=== PATIENT | female | born 1950 | race American Indian/Alaskan Native ===

== ENCOUNTER 2017-05-26 17:15 | Emergency (ER) | payer MEDICARE ==
--- NOTE | 2017-05-26 18:12 | Emergency Department Report ---
ED Medical Clearance HPI - General Chief complaint: Medical Clearance Stated complaint: CHOKING Time Seen by Provider: 05/26/17 18:04 Source: patient, family, EMS, RN notes reviewed Mode of arrival: Stretcher Limitations: Physical Limitation - History of Present Illness Initial comments: This is a 67-year-old female, who is previously unknown to me, she reports a past medical history of chronic debility, wheelchair-bound, fibromyalgia, presents to the ER after choking episode. She reports that she was eating chicken without bones. Choking episode has resolved. Patient indicates chronic weakness, which is not a new, worsening or different. The patient denies headache, neck pain, chest pain, abdominal pain, shortness of breath, hemoptysis and fever. She reports that she is able to tolerate liquid feeds, and wants to go home now. MD Complaint: other Reason for Medical Clearance: other Alledged Intoxication: No Compliant with Home Medications: Yes Traumatic Symptoms: denies traumatic injury Associated Symptoms: other (as per hpi) Home medications: Home Medications Medication Instructions Recorded Confirmed Last Taken Baclofen [Lioresal] 10 mg PO BID PRN 03/25/15 07/16/16 03/25/15 Ibuprofen [Motrin 800 MG tab] 800 mg PO Q12H PRN 03/25/15 07/16/16 03/25/15 LORazepam [Ativan] 1 tab PO PRN PRN 03/25/15 07/16/16 Unknown Solifenacin Succinate [Vesicare] 10 mg PO QDAY 03/25/15 07/16/16 03/25/15 traMADol [Ultram 50 MG tab] 50 mg PO Q12H PRN 03/25/15 07/16/16 03/25/15 Gabapentin [Neurontin] 300 mg PO Q8HR 07/16/16 07/16/16 Unknown Previous Rx's Medication Instructions Recorded Last Taken Type HYDROcodone/APAP 5-325 [Jackson 1 - 2 each PO Q6HR PRN #30 tablet 03/26/15 Unknown Rx 5-325 mg TAB] Allergies/Adverse reactions: Allergies Allergy/AdvReac Type Severity Reaction Status Date / Time penicillin Allergy Anaphylaxis Verified 05/26/17 17:25 sulfamethoxazole Allergy Anaphylaxis Verified 05/26/17 17:25 [From Bactrim] trimethoprim [From Bactrim] Allergy Anaphylaxis Verified 05/26/17 17:25 ED Review of Systems ROS: Stated complaint: CHOKING Other details as noted in HPI Comment: as per hpi Constitutional: weakness (chronic weakness). denies: fever Eyes: denies: eye discharge ENT: denies: epistaxis Respiratory: denies: cough Cardiovascular: denies: chest pain Gastrointestinal: denies: abdominal pain Genitourinary: as per HPI Musculoskeletal: as per HPI Skin: as per HPI Neurological: as per HPI Psychiatric: as per HPI ED Past Medical Hx - Past Medical History Additional medical history: polymyositis, fibromyalgia, and cervical spinal stenosis - Surgical History Additional Surgical History: Hip surgery Hysterectomy. Colon Polyps - Social History Smoking Status: Never Smoker Substance Use Type: None - Medications Home Medications: Home Medications Medication Instructions Recorded Confirmed Last Taken Type Baclofen [Lioresal] 10 mg PO BID PRN 03/25/15 07/16/16 03/25/15 History Ibuprofen [Motrin 800 MG tab] 800 mg PO Q12H PRN 03/25/15 07/16/16 03/25/15 History LORazepam [Ativan] 1 tab PO PRN PRN 03/25/15 07/16/16 Unknown History Solifenacin Succinate [Vesicare] 10 mg PO QDAY 03/25/15 07/16/16 03/25/15 History traMADol [Ultram 50 MG tab] 50 mg PO Q12H PRN 03/25/15 07/16/16 03/25/15 History HYDROcodone/APAP 5-325 [Jackson 1 - 2 each PO Q6HR PRN #30 tablet 03/26/15 Unknown Rx 5-325 mg TAB] Gabapentin [Neurontin] 300 mg PO Q8HR 07/16/16 07/16/16 Unknown History ED Physical Exam - General Limitations: Physical Limitation General appearance: alert, in no apparent distress - Head Head exam: Present: atraumatic, normocephalic - Eye Eye exam: Present: normal appearance, EOMI. Absent: nystagmus - ENT ENT exam: Present: normal exam, normal orophraynx, mucous membranes moist, normal external ear exam, other (no foreign bodies noted in the oropharynx. There is no stridor or dysphonia. There is no elevation of the tongue.) - Neck Neck exam: Present: normal inspection. Absent: tenderness, meningismus - Respiratory Respiratory exam: Present: normal lung sounds bilaterally. Absent: respiratory distress, wheezes, rales, rhonchi, stridor, chest wall tenderness, accessory muscle use, decreased breath sounds, prolonged expiratory - Cardiovascular Cardiovascular Exam: Present: regular rate, normal rhythm, normal heart sounds. Absent: bradycardia, tachycardia, irregular rhythm, systolic murmur, diastolic murmur, rubs, gallop - GI/Abdominal GI/Abdominal exam: Present: soft, normal bowel sounds. Absent: distended, tenderness, guarding, rebound, rigid, pulsatile mass - Extremities Exam Extremities exam: Present: normal inspection - Back Exam Back exam: Present: normal inspection. Absent: tenderness - Neurological Exam Neurological exam: Present: alert, oriented X3, other (there is no facial droop. The tongue is midline. Extraocular movements are intact bilaterally. 5 out of 5 strength in the bilateral upper extremities.) - Psychiatric Psychiatric exam: Present: normal affect, normal mood - Skin Skin exam: Present: warm, dry, intact, normal color. Absent: rash ED Course Vital Signs 05/26/17 05/26/17 05/26/17 17:25 18:27 18:54 Temperature 97.9 F Pulse Rate 94 H 81 Respiratory 18 16 16 Rate Blood Pressure 124/80 Blood Pressure 109/60 [Right] O2 Sat by Pulse 96 98 Oximetry ED Medical Decision Making - Lab Data Vital Signs 05/26/17 05/26/17 17:25 18:27 Temperature 97.9 F Pulse Rate 94 H 81 Respiratory 18 16 Rate Blood Pressure 124/80 Blood Pressure 109/60 [Right] O2 Sat by Pulse 96 98 Oximetry - Medical Decision Making Differential diagnosis: Resolved choking episode Assessment and plan: 67-year-old female with resolved choking episode on a piece of boneless chicken. She is afebrile, with reassuring vital signs, and tolerating liquid feeds. She is saturating well, and has no pulmonary exam findings. I did recommend a chest x-ray to assess for possible retained foreign body/pneumonitis, however the patient and her family declined. They decline out of concern for radiation. The patient is able to tolerate liquid feeds. The risks of not performing the chest x-ray were discussed with the family and patient verbalized understanding. They understand the patient can come back any time if and when she changes her mind. ED Disposition Clinical Impression: Choking episode Disposition: DC-01 TO HOME OR SELFCARE Is pt being admited?: No Does the pt Need Aspirin: No Condition: Good Instructions: Foreign Body Ingestion (ED) Additional Instructions: Continue current outpatient medications. Follow up with her primary care doctor as scheduled. Return to the ER right away with fevers, chills, lethargy , irritability, projectile vomiting, chest pain, abdominal pain, confusion, inability to tolerate liquid feeds. Referrals: PRIMARY CARE, [Primary Care Provider] - 3-5 Days SANJAY HAAS MD [Staff Physician] - 3-5 Days
[2017-05-26 18:27] VITALS: BP 109/60
== END 2017-05-26 19:00 | disposition home or self-care (01) ==
LOC: ED 17:15
DX: R09.89 Other specified symptoms and signs involving the circulatory and respiratory systems (principal); Z88.0 Allergy status to penicillin; Z88.2 Allergy status to sulfonamides; Z88.8 Allergy status to other drugs, medicaments and biological substances
CPT/HCPCS: 99283

== ENCOUNTER 2018-04-06 12:26 | Inpatient (IN) | payer MEDICARE ==
--- NOTE | 2018-04-06 13:44 | Emergency Department Report ---
ED General Adult HPI - General Chief complaint: Wound/Laceration Stated complaint: BED SORE Time Seen by Provider: 04/06/18 13:06 Source: patient, EMS Mode of arrival: Stretcher Limitations: Physical Limitation - History of Present Illness Initial comments: 67-year-old chronically ill, bedbound patient due to general infirmity and weakness secondary to polymyositis, is brought in by daughter for complaint of progressive bedsores, although patient is under the care of another daughter and a grandson, but daughter who is present with patient and who has power of real estate associate attorney, reports that care has been inadequate, and she feels patient needs a higher level of care, likely long term placement. Reports the patient has not been eating or drinking well, and has been unable to get out of bed due to her chronic illness or to look after any of her activities of daily living. Patient is awake and alert, able to give fairly good history, but poor on timelines, denies acute symptomatology, no fever chills or diaphoresis, she is not having pain in any location, but also agrees that she is not eating or drinking well, and that she has very little appetite. Patient was hospitalized here from March 07 through March 13 of this year, one month ago, difficulty swallowing, was found to have esophageal stricture, tomlinson was dilated, and discharged to rehabilitation, and has been home for approximately 2 weeks. Grandson, age 21, is supposed to be turning patient, the daughter reports that it is not being done regularly, and patient estimated to be done every 4 hours. There has been no health nurse visitation. - Related Data Previous Rx's Medication Instructions Recorded Last Taken Type Baclofen [Lioresal] 10 mg PO BID PRN #60 tablet 03/13/18 Unknown Rx Gabapentin [Neurontin] 300 mg PO Q8HR #30 capsule 03/13/18 Unknown Rx HYDROcodone/APAP 5-325 [Dale 1 - 2 each PO Q6HR PRN #14 tablet 03/13/18 Unknown Rx 5-325 mg TAB] Clindamycin [Clindamycin CAP] 150 mg PO Q8HR #21 capsule 04/06/18 Unknown Rx Allergies Allergy/AdvReac Type Severity Reaction Status Date / Time penicillin Allergy Anaphylaxis Verified 05/26/17 17:25 sulfamethoxazole Allergy Anaphylaxis Verified 05/26/17 17:25 [From Bactrim] trimethoprim [From Bactrim] Allergy Anaphylaxis Verified 05/26/17 17:25 ED Review of Systems ROS: Stated complaint: BED SORE Other details as noted in HPI Comment: All other systems reviewed and negative Constitutional: weakness (chronic secondary to weakness from polymyositis). denies: chills, fever ENT: denies: ear pain, throat pain Respiratory: denies: cough, shortness of breath, wheezing Cardiovascular: denies: chest pain, palpitations Endocrine: no symptoms reported Gastrointestinal: constipation. denies: abdominal pain, nausea, vomiting Genitourinary: denies: urgency, dysuria, frequency Musculoskeletal: back pain (mild, from soreness in area of decubitus at sacrum) Skin: as per HPI, other (active decubitus at sacrum, healing decubitus right posterior hip) Neurological: weakness, other (bedridden secondary to general weakness) Psychiatric: denies: anxiety, depression Hematological/Lymphatic: denies: easy bleeding, easy bruising ED Past Medical Hx - Past Medical History Previous Medical History?: Yes Hx CVA: Yes Hx Arthritis: Yes Additional medical history: polymyositis, fibromyalgia, and cervical spinal stenosis - Surgical History Past Surgical History?: Yes Additional Surgical History: Hip surgery Hysterectomy. Colon Polyps - Social History Smoking Status: Unknown if ever smoked - Medications Home Medications: Home Medications Medication Instructions Recorded Confirmed Last Taken Type Baclofen [Lioresal] 10 mg PO BID PRN #60 tablet 03/13/18 Unknown Rx Gabapentin [Neurontin] 300 mg PO Q8HR #30 capsule 03/13/18 Unknown Rx HYDROcodone/APAP 5-325 [Dale 1 - 2 each PO Q6HR PRN #14 tablet 03/13/18 Unknown Rx 5-325 mg TAB] Clindamycin [Clindamycin CAP] 150 mg PO Q8HR #21 capsule 04/06/18 Unknown Rx ED Physical Exam - General Limitations: Physical Limitation General appearance: alert, in no apparent distress - Head Head exam: Present: atraumatic - Eye Eye exam: Present: PERRL - ENT ENT exam: Present: mucous membranes dry, other (edentulous) - Neck Neck exam: Present: normal inspection. Absent: tenderness, meningismus - Respiratory Respiratory exam: Present: normal lung sounds bilaterally. Absent: respiratory distress, wheezes, rales, rhonchi - Cardiovascular Cardiovascular Exam: Present: regular rate, normal rhythm - GI/Abdominal GI/Abdominal exam: Present: soft, normal bowel sounds. Absent: distended, tenderness, guarding, rebound - Rectal Rectal exam: Present: deferred - Extremities Exam Extremities exam: Present: other (family muscle, grossly weak generalized, generally unable lift lower extremities from stretcher) - Back Exam Back exam: Present: other (active 3-4 cm sacral decubitus, deep almost to bone level, no active bleeding, minimal drainage) - Neurological Exam Neurological exam: Present: alert, oriented X3, CN II-XII intact, other (gross weakness lower extremities, fair strength upper extremity, no focal weakness.) - Psychiatric Psychiatric exam: Present: normal affect, normal mood - Skin Skin exam: Present: warm, dry, other (sacral decubiti as noted on musculoskeletal examination, active at sacrum, healing right posterior hip) ED Course Vital Signs 04/06/18 12:42 Temperature 37.2 C Pulse Rate 106 H Respiratory 16 Rate Blood Pressure 126/72 O2 Sat by Pulse 96 Oximetry - Reevaluation(s) Reevaluation #1: 04/06/18 16:10 Patient has remained stable during course of observation and rehydration while waiting lab results, has no additional complaints. ED Medical Decision Making - Lab Data Result diagrams: 04/06/18 15:13 04/06/18 17:31 - Medical Decision Making This patient is chronically ill, bedridden due to generalized weakness from polymyositis, as well as decubiti, but is clinically stable, shows no signs of sepsis, is febrile, and has no acute metabolic abnormalities, and no signs of volume contraction as well. Although she is chronically ill, and could receive better bedside care, she has no illness that requires acute hospitalization, either for diagnostics or therapy. I had a long discussion with family about patient's care needs, likely need for home health visits, but discharged health visits and care plan are not clear from daughter who was in attendance, who has power of real estate associate attorney, but does not live with patient and is not aware of patient's discharge care plan, as patient was discharged to the care of another daughter. Patient's findings discussed with supervisor industrial arts education hospitalist, Dr. Tate, who feels patient is significantly malnourished and has encephalopathic signs and is likely to be unable to adequately be cared for at home, and he will admit patient for further care. - Differential Diagnosis cellulitis, dehydration, sepsis, metabolic abnormality Critical Care Time: No Critical care attestation.: If time is entered above; I have spent that time in minutes in the direct care of this critically ill patient, excluding procedure time. ED Disposition Clinical Impression: Sacral decubitus ulcer, stage III Decubitus ulcer of right hip Qualifiers: Pressure injury stage: unspecified pressure injury stage Qualified Code(s): L89.219 - Pressure ulcer of right hip, unspecified stage Disposition: OP ADMIT IP TO THIS HOSP Is pt being admited?: Yes Does the pt Need Aspirin: No Condition: Stable Instructions: How to Prevent Pressure Ulcers (ED), Pressure Ulcer (ED) Additional Instructions: Follow with your primary care doctor at the beginning of the week on Sunday, for urgent follow-up and to discuss arrangements for home health to visit patient and to assist with management of wound. Sure to turn frequently, and avoid pressure on the sacral decubitus in particular. Take clindamycin 3 times daily, antibiotic, to prevent infection of this decubitus. Continue wet to dry dressing changes as described in pressure ulcer care. Seizure encourage extra food and drink to maintain nutrition and to help assist with wound healing as well. Prescriptions: Clindamycin [Clindamycin CAP] 150 mg PO Q8HR #21 capsule Referrals: SANJAY HAAS MD [Primary Care Provider] - 3-5 Days Time of Disposition: 16:16
[2018-04-06] MEDS ORDERED: NACL 0.9% 1000 ML 1,000 ML IV ONE (13:56)
[2018-04-06] MEDS ORDERED: NACL 0.9% 500 ML 500 ML ONE (15:19)
[2018-04-06 15:45] LABS: Basophils % (Auto) 0.4 % (0.0-1.8); Eosinophils # (Auto) 0.1 K/mm3 (0.0-0.4); Eosinophils % (Auto) 0.9 % (0.0-4.3); Hematocrit 30.6 % (30.3-42.9); Hemoglobin 10.2 gm/dl (10.1-14.3); Lymphocytes # (Auto) 3.1 K/mm3 (1.2-5.4); Lymphocytes % (Auto) 35.4 % (13.4-35.0); Mean Corpuscular HGB Conc 33 % (30-34); Mean Corpuscular Hemoglobin 27 pg (28-32); Mean Corpuscular Volume 81 fl (79-97); Platelet Count 528 K/mm3 (140-440); Red Blood Count 3.78 M/mm3 (3.65-5.03); Red Cell Distribution Width 15.4 % (13.2-15.2)
[2018-04-06 15:47] LABS: BUN/Creatinine Ratio 30; Blood Urea Nitrogen 6 mg/dL (7-17); Calcium 8.4 mg/dL (8.4-10.2); Hemolysis Index 0; INR 0.94 (0.87-1.13)
[2018-04-06] MEDS ORDERED: CLEOCIN PO ONE (16:17)
[2018-04-06] MEDS ORDERED: ZOFRAN IV PRN (17:51)
[2018-04-06] MEDS ORDERED: SODIUM CHLORIDE FLUSH SYRINGE 10 ML IV PRN (17:51)
[2018-04-06] MEDS ORDERED: PROVENTIL IH PRN (17:51)
[2018-04-06 18:11] LABS: Alanine Aminotransferase 7 units/L (7-56); Albumin 2.5 g/dL (3.9-5); BUN/Creatinine Ratio 30; Blood Urea Nitrogen 6 mg/dL (7-17); Calcium 8.2 mg/dL (8.4-10.2); Hemolysis Index 0
--- NOTE | 2018-04-06 18:36 | Cat Scan Report ---
FINAL REPORT PROCEDURE: CT HEAD/BRAIN WO CON TECHNIQUE: Computerized tomography of the head was performed without contrast material. HISTORY: confusion COMPARISON: No prior studies are available for comparison. FINDINGS: There is no CT evidence of intracranial mass, hemorrhage, acute territorial infarction, or hydrocephalus. The intracranial arteries are symmetric in density. Calvarium is intact. Visualized paranasal sinuses and mastoids are aerated. IMPRESSION: No CT evidence of acute abnormality
[2018-04-06] MEDS ORDERED: CLEOCIN ONE (18:39)
[2018-04-06 18:48] LABS: Free T4 (Free Thyroxine) 1.23 ng/dL (0.76-1.46)
[2018-04-06] MEDS ORDERED: CLEOCIN 300 MG/50 mL 300 MG/50 ML BAG IV ONE ×2 (19:02→20:00)
[2018-04-06 19:19] LABS: Bilirubin,Urine NEG (Negative); Blood,Urine NEG (Negative); Color,Urine Yellow (Yellow); Protein,Urine <15 mg/dL mg/dL (Negative); WBC,Urine < 1.0 /HPF (0.0-6.0)
--- NOTE | 2018-04-06 19:33 | History and Physical Report ---
History of Present Illness Date of admission: 04/06/18 19:01 Chief complaint: She is confused History of present illness: 67 YO Female with Dementia, Cerebral Atherosclerosis, CVA, Debility, Severe Malnutrition, Decubitus Ulcers, Polymyositis, OA, Fibromyalgia presents to ED for evaluation. Pt is confused and unable to provide detailed history. Pt daughter is at bedside and provides history. As per daughter, the patient has become more weak and confused over the past 2 weeks. Pt has episodes of confusion, agitation, as well as tearful outbreaks. Pt is currently unable to independently conduct activities of daily living. Pt seen and evaluated in ED and found to have Encephalopathy, Severe Malnutrition. Pt admitted to [facility] unit. Discussed treatment options with family. Pt family request assiatance with placement in Assisted Living Facility with Hospice care. Hospice consulted in ED. Past History Past Medical History: arthritis, stroke, other (Polymyositis, Fibromyalgia) Past Surgical History: hysterectomy, total hip replacement Social history: , lives with family. denies: smoking, alcohol abuse, prescription drug abuse Family history: hypertension Medications and Allergies Allergies Allergy/AdvReac Type Severity Reaction Status Date / Time penicillin Allergy Anaphylaxis Verified 05/26/17 17:25 sulfamethoxazole Allergy Anaphylaxis Verified 05/26/17 17:25 [From Bactrim] trimethoprim [From Bactrim] Allergy Anaphylaxis Verified 05/26/17 17:25 Home Medications Medication Instructions Recorded Confirmed Last Taken Type Baclofen [Lioresal] 10 mg PO BID PRN #60 tablet 03/13/18 Unknown Rx Gabapentin [Neurontin] 300 mg PO Q8HR #30 capsule 03/13/18 Unknown Rx HYDROcodone/APAP 5-325 [Sebastian 1 - 2 each PO Q6HR PRN #14 tablet 03/13/18 Unknown Rx 5-325 mg TAB] Clindamycin [Clindamycin CAP] 150 mg PO Q8HR #21 capsule 04/06/18 Unknown Rx Active Meds: Active Medications Acetaminophen (Tylenol) 650 mg PO Q4H PRN PRN Reason: Pain MILD(1-3)/Fever >100.5/RDZ Albuterol (Proventil) 2.5 mg IH Q4HRT PRN PRN Reason: Shortness Of Breath Baclofen (Lioresal) 10 mg PO BID PRN PRN Reason: muscle spasms Gabapentin (Neurontin) 300 mg PO Q8HR RE Sodium Chloride (Nacl 0.9% 1000 Ml) 1,000 mls @ 125 mls/hr IV ONCE ONE Stop: 04/06/18 21:55 Last Admin: 04/06/18 14:15 Dose: 125 mls/hr Clindamycin HCl (Cleocin 300 Mg/50 Ml) 300 mg in 50 mls @ 100 mls/hr IV ONCE.ED ONE Stop: 04/06/18 20:29 Morphine Sulfate (Morphine) 2 mg IV Q4H PRN PRN Reason: Pain, Moderate (4-6) Ondansetron HCl (Zofran) 4 mg IV Q8H PRN PRN Reason: Nausea And Vomiting Sodium Chloride (Sodium Chloride Flush Syringe 10 Ml) 10 ml IV BID RE Sodium Chloride (Sodium Chloride Flush Syringe 10 Ml) 10 ml IV PRN PRN PRN Reason: LINE FLUSH Review of Systems Constitutional: weight loss, anorexia, weakness, no weight gain, no fever, no chills Ears, nose, mouth and throat: no ear pain, no ear discharge, no tinnitis, no decreased hearing, no nose pain, no nasal congestion, no nasal discharge Breasts: no change in shape, no swelling, no mass Cardiovascular: no chest pain, no orthopnea, no palpitations, no rapid/ irregular heart beat, no edema, no syncope Respiratory: no cough, no cough with sputum, no excessive sputum, no hemoptysis , no shortness of breath Gastrointestinal: no nausea, no vomiting, no diarrhea, no constipation, no change in bowel habits Genitourinary Female: no dysmenorrhea, no pelvic pain, no flank pain, no menorrhagia, no urinary frequency, no urgency Rectal: no pain, no incontinence, no bleeding Musculoskeletal: no neck stiffness, no neck pain, no shooting arm pain, no arm numbness/tingling, no low back pain Integumentary: no rash, no pruritis, no redness Neurological: no head injury, no transient paralysis, no numbness, no tingling, no seizures Psychiatric: no anxiety, no memory loss, no change in sleep habits, no sleep disturbances, no insomnia, no hypersomnia, no change in appetite, no change in libido Endocrine: no cold intolerance, no heat intolerance, no polyphagia, no excessive thirst, no polydipsia, no polyuria, no nocturia, no flushing Hematologic/Lymphatic: no easy bruising, no easy bleeding, no lymphadenopathy, no lymphedema Allergic/Immunologic: no urticaria, no allergic rhinitis, no wheezing, no persistent infections, no angioedema Exam - Constitutional Vitals: Temp Pulse Resp BP Pulse Ox 99.3 F 102 H 14 132/74 100 04/06/18 18:30 04/06/18 18:30 04/06/18 18:30 04/06/18 18:30 04/06/18 18:30 General appearance: Present: mild distress - EENT Eyes: Present: PERRL ENT: hearing intact, clear oral mucosa - Neck Neck: Present: supple, normal ROM - Respiratory Respiratory effort: normal Respiratory: left: diminished - Cardiovascular Heart Sounds: Present: S1 & S2. Absent: rub, click - Extremities Extremities: pulses symmetrical, No edema Extremity abnormal: ulceration Peripheral Pulses: within normal limits - Abdominal General gastrointestinal: Present: soft, non-tender, non-distended, normal bowel sounds Female genitourinary: Present: normal - Integumentary Integumentary: Present: clear, dry, decreased turgor - Musculoskeletal Musculoskeletal: generalized weakness - Psychiatric Psychiatric: no intact judgment & insight, no memory intact - Neurologic Neurologic: no focal deficits, no gait normal Results - Labs CBC & Chem 7: 04/06/18 15:13 04/06/18 17:31 Labs: Abnormal lab results 04/06/18 04/06/18 04/06/18 Range/Units 15:13 15:13 15:13 MCH 27 L (28-32) pg RDW 15.4 H (13.2-15.2) % Plt Count 528 H (140-440) K/mm3 Lymph % (Auto) 35.4 H (13.4-35.0) % [place] % (Auto) 11.0 H (0.0-7.3) % [place] # 1.0 H (0.0-0.8) K/mm3 BUN 6 L (7-17) mg/dL Creatinine < 0.2 L (0.7-1.2) mg/dL Lactic Acid 0.60 L (0.7-2.0) mmol/L Calcium (8.4-10.2) mg/dL Albumin (3.9-5) g/dL 08/04/18 Range/Units 17:31 MCH (28-32) pg RDW (13.2-15.2) % Plt Count (140-440) K/mm3 Lymph % (Auto) (13.4-35.0) % [place] % (Auto) (0.0-7.3) % [place] # (0.0-0.8) K/mm3 BUN 6 L (7-17) mg/dL Creatinine < 0.2 L (0.7-1.2) mg/dL Lactic Acid (0.7-2.0) mmol/L Calcium 8.2 L (8.4-10.2) mg/dL Albumin 2.5 L (3.9-5) g/dL Assessment and Plan - Patient Problems (1) Encephalopathy Current Visit: Yes Status: Acute Plan to address problem: CT Head, neuro checks, thyroid panel, supportive care (2) Severe malnutrition Current Visit: Yes Status: Acute Plan to address problem: Encourage increased protein intake, diet as tolerated, aspiration precautions. (3) Sacral decubitus ulcer, stage III Current Visit: Yes Status: Acute Plan to address problem: wound care consulted, wound care. (4) Debility Current Visit: No Status: Chronic Plan to address problem: bed alarm, fall precautions, supportive care. (5) Dysphagia Current Visit: No Status: Chronic Qualifiers: Dysphagia type: pharyngoesophageal phase Qualified Code(s): R13.14 - Dysphagia, pharyngoesophageal phase Plan to address problem: Chronic, supportive care. Ensure prn, aspiration precautions. (6) DVT prophylaxis Current Visit: No Status: Acute Plan to address problem: SCD to BLE while in bed.
[2018-04-06] MEDS: NEURONTIN PO SCH (23:02)
[2018-04-06] MEDS: SODIUM CHLORIDE FLUSH SYRINGE 10 ML IV SCH (23:03)
[2018-04-06] MEDS: MORPHINE IV PRN (23:56)
[2018-04-07] MEDS: TYLENOL PO PRN ×2 (01:28→12:25)
[2018-04-07] MEDS: NEURONTIN PO SCH ×3 (05:10→23:24)
[2018-04-07] MEDS: SODIUM CHLORIDE FLUSH SYRINGE 10 ML IV SCH ×2 (09:26→23:24)
[2018-04-07] MEDS: MORPHINE IV PRN (09:28)
--- NOTE | 2018-04-07 13:09 | Progress Note ---
Assessment and Plan - Encephalopathy- metabolic CT Head - normal - Severe malnutrition Encourage increased protein intake, diet as tolerated, aspiration precautions. - Sacral decubitus ulcer, stage III wound care consulted, wound care. - Immobility due to his inability and Debility bed alarm, fall precautions, supportive care. - Dysphagia Dysphagia type: pharyngoesophageal phase Qualified Code(s): R13.14 - Dysphagia, pharyngoesophageal phase Plan to address problem: Chronic, supportive care. Ensure prn, aspiration precautions. - DVT prophylaxis SCD to BLE while in bed. Subjective Date of service: 04/07/18 Principal diagnosis: decubitus ulcer in the sacrum, metabolic encephalopathy, polymyositis, Interval history: Patient seen and examined and appeared lying quietly in bed. Denies any fever. Complains of pain in both lower extremities. Objective - Exam Narrative Exam: Constitutional: Mal nourished,coiled up in bed. In no distress Head: Normocephalic atraumatic Eyes: Pupils are equal round and reactive to light Nose: No enlarged turbinates, no septal deviation. Mouth: Moist mucous membranes. Neck: Supple no thyromegaly. No bruit. No JVD Heart: Regular rate and rhythm, S1-S2 abnormal. No rubs murmurs or gallop Lungs: Clear to auscultation bilaterally no rales or rhonchi Abdomen: Soft, nontender. Bowel sound are present. Extremities: No edema no cyanosis and no clubbing. Neuro: Alert oriented Oriented x3. No focal sensory or motor deficit. Skin: No rashes no hyperemic spots Psychiatry: Euthymic. Calm. - Constitutional Vitals: Vital Signs - 12hr 04/07/18 04/07/18 04/07/18 02:41 08:18 09:15 Temperature 99.2 F 99.5 F Pulse Rate 113 H 99 H Pulse Rate [ Apical] Respiratory 20 18 Rate Blood Pressure 109/62 106/67 O2 Sat by Pulse 96 99 98 Oximetry 04/07/18 10:00 Temperature Pulse Rate Pulse Rate [ 99 H Apical] Respiratory Rate Blood Pressure O2 Sat by Pulse Oximetry - Labs CBC & Chem 7: 04/06/18 15:13 04/06/18 17:31 Labs: Abnormal lab results 04/06/18 04/06/18 04/06/18 Range/Units 15:13 15:13 15:13 MCH 27 L (28-32) pg RDW 15.4 H (13.2-15.2) % Plt Count 528 H (140-440) K/mm3 Lymph % (Auto) 35.4 H (13.4-35.0) % [place] % (Auto) 11.0 H (0.0-7.3) % [place] # 1.0 H (0.0-0.8) K/mm3 BUN 6 L (7-17) mg/dL Creatinine < 0.2 L (0.7-1.2) mg/dL Lactic Acid 0.60 L (0.7-2.0) mmol/L Calcium (8.4-10.2) mg/dL Albumin (3.9-5) g/dL 04/06/18 Range/Units 17:31 MCH (28-32) pg RDW (13.2-15.2) % Plt Count (140-440) K/mm3 Lymph % (Auto) (13.4-35.0) % [place] % (Auto) (0.0-7.3) % [place] # (0.0-0.8) K/mm3 BUN 6 L (7-17) mg/dL Creatinine < 0.2 L (0.7-1.2) mg/dL Lactic Acid (0.7-2.0) mmol/L Calcium 8.2 L (8.4-10.2) mg/dL Albumin 2.5 L (3.9-5) g/dL
[2018-04-07] MEDS ORDERED: SENOKOT PO PRN (15:24)
[2018-04-07] MEDS: XANAX PO PRN (17:31)
[2018-04-08 05:00] LABS: Basophils % (Auto) 0.4 % (0.0-1.8); Eosinophils # (Auto) 0.1 K/mm3 (0.0-0.4); Eosinophils % (Auto) 1.4 % (0.0-4.3); Hematocrit 29.3 % (30.3-42.9); Hemoglobin 9.5 gm/dl (10.1-14.3); Lymphocytes # (Auto) 3.1 K/mm3 (1.2-5.4); Lymphocytes % (Auto) 40.6 % (13.4-35.0); Mean Corpuscular HGB Conc 32 % (30-34); Mean Corpuscular Hemoglobin 26 pg (28-32); Mean Corpuscular Volume 81 fl (79-97); Monocytes # (Auto) 0.9 K/mm3 (0.0-0.8); Monocytes % (Auto) 11.6 % (0.0-7.3); Platelet Count 494 K/mm3 (140-440)
[2018-04-08 05:23] LABS: Alanine Aminotransferase 5 units/L (7-56); Albumin 2.2 g/dL (3.9-5); BUN/Creatinine Ratio 35; Blood Urea Nitrogen 7 mg/dL (7-17); Calcium 8.2 mg/dL (8.4-10.2); Hemolysis Index 15
[2018-04-08] MEDS: NEURONTIN PO SCH ×3 (05:28→22:28)
[2018-04-08] MEDS: XANAX PO PRN (05:28)
[2018-04-08] MEDS: SODIUM CHLORIDE FLUSH SYRINGE 10 ML IV SCH ×2 (09:50→22:27)
[2018-04-08] MEDS: TYLENOL PO PRN (11:10)
[2018-04-08] MEDS: LIORESAL PO PRN (11:11)
--- NOTE | 2018-04-08 13:30 | Progress Note ---
Assessment and Plan - Encephalopathy- metabolic CT Head - normal Improvement - Severe malnutrition Encourage increased protein intake, diet as tolerated, aspiration precautions. - Sacral decubitus ulcer, stage III wound care consulted, wound care. - Immobility due to his inability and Debility bed alarm, fall precautions, supportive care. - Dysphagia Dysphagia type: pharyngoesophageal phase Qualified Code(s): R13.14 - Dysphagia, pharyngoesophageal phase Plan to address problem: Chronic, supportive care. Ensure prn, aspiration precautions. - DVT prophylaxis SCD to BLE while in bed. -Awaiting SNF placement Subjective Date of service: 04/08/18 Principal diagnosis: decubitus ulcer in the sacrum, metabolic encephalopathy, polymyositis, Interval history: Patient seen and examined and appeared lying quietly in bed. Denies any fever. Complains of pain in both lower extremities. No fever. Objective - Exam Narrative Exam: Constitutional: Mal nourished,coiled up in bed. Has contractures in the low estimated Head: Normocephalic atraumatic Eyes: Pupils are equal round and reactive to light Nose: No enlarged turbinates, no septal deviation. Mouth: Moist mucous membranes. Neck: Supple no thyromegaly. No bruit. No JVD Heart: Regular rate and rhythm, S1-S2 abnormal. No rubs murmurs or gallop Lungs: Clear to auscultation bilaterally no rales or rhonchi Abdomen: Soft, nontender. Bowel sound are present. Extremities: No edema no cyanosis and no clubbing. Neuro: Alert oriented Oriented x3. No focal sensory or motor deficit. Skin: No rashes no hyperemic spots Psychiatry: Euthymic. Calm. - Constitutional Vitals: Vital Signs - 12hr 04/08/18 04/08/18 04/08/18 03:41 07:46 10:00 Temperature 98.4 F 99.0 F Pulse Rate 104 H 95 H Respiratory 18 16 18 Rate Blood Pressure 94/51 109/67 O2 Sat by Pulse 97 94 Oximetry - Labs CBC & Chem 7: 04/08/18 04:03 04/08/18 04:03 Labs: Abnormal lab results 04/08/18 04/08/18 Range/Units 04:03 04:03 RBC 3.60 L (3.65-5.03) M/mm3 Hgb 9.5 L (10.1-14.3) gm/dl Hct 29.3 L (30.3-42.9) % MCH 26 L (28-32) pg RDW 16.0 H (13.2-15.2) % Plt Count 494 H (140-440) K/mm3 Lymph % (Auto) 40.6 H (13.4-35.0) % [place] % (Auto) 11.6 H (0.0-7.3) % [place] # 0.9 H (0.0-0.8) K/mm3 Creatinine < 0.2 L (0.7-1.2) mg/dL Calcium 8.2 L (8.4-10.2) mg/dL ALT 5 L (7-56) units/L Albumin 2.2 L (3.9-5) g/dL
[2018-04-08] MEDS: MORPHINE IV PRN (15:45)
[2018-04-08] MEDS: ULTRAM PO PRN (19:30)
[2018-04-09] MEDS: XANAX PO PRN ×2 (02:38→22:41)
[2018-04-09] MEDS: TYLENOL PO PRN (02:38)
[2018-04-09] MEDS: ULTRAM PO PRN ×2 (04:28→21:28)
[2018-04-09] MEDS: NEURONTIN PO SCH ×3 (06:06→21:29)
[2018-04-09 06:11] LABS: Basophils % (Auto) 0.6 % (0.0-1.8); Eosinophils # (Auto) 0.2 K/mm3 (0.0-0.4); Eosinophils % (Auto) 2.4 % (0.0-4.3); Hematocrit 28.9 % (30.3-42.9); Hemoglobin 9.5 gm/dl (10.1-14.3); Lymphocytes # (Auto) 3.1 K/mm3 (1.2-5.4); Mean Corpuscular HGB Conc 33 % (30-34); Mean Corpuscular Hemoglobin 27 pg (28-32); Mean Corpuscular Volume 81 fl (79-97); Monocytes # (Auto) 0.9 K/mm3 (0.0-0.8); Monocytes % (Auto) 12.8 % (0.0-7.3); Platelet Count 431 K/mm3 (140-440); Red Blood Count 3.57 M/mm3 (3.65-5.03); Red Cell Distribution Width 16.2 % (13.2-15.2)
[2018-04-09 06:40] LABS: Alanine Aminotransferase 6 units/L (7-56); Albumin 2.2 g/dL (3.9-5); BUN/Creatinine Ratio 40; Blood Urea Nitrogen 8 mg/dL (7-17); Calcium 8.1 mg/dL (8.4-10.2); Hemolysis Index 22
--- NOTE | 2018-04-09 08:41 | Progress Note ---
Assessment and Plan - Encephalopathy- metabolic CT Head - normal Improvement to baeline now - Severe malnutrition Encourage increased protein intake, diet as tolerated, aspiration precautions. tolerating diet - Sacral decubitus ulcer, stage III wound care consulted, wound care. - Immobility due to his inability and Debility bed alarm, fall precautions, supportive care. - Dysphagia Chronic, supportive care. Ensure prn, aspiration precautions. - DVT prophylaxis SCD to BLE while in bed. -Awaiting SNF placement, but she is refusing to SNF, will discuss with family about HH placement as she will need 24/ care Physical exam Constitutional: Mal nourished,coiled up in bed. Has contractures in the low estimated Head: Normocephalic atraumatic Eyes: Pupils are equal round and reactive to light Nose: No enlarged turbinates, no septal deviation. Mouth: Moist mucous membranes. Neck: Supple no thyromegaly. No bruit. No JVD Heart: Regular rate and rhythm, S1-S2 abnormal. No rubs murmurs or gallop Lungs: Clear to auscultation bilaterally no rales or rhonchi Abdomen: Soft, nontender. Bowel sound are present. Extremities: No edema no cyanosis and no clubbing. Neuro: Alert oriented Oriented x3. No focal sensory or motor deficit. Skin: No rashes no hyperemic spots Psychiatry: Euthymic. Calm. Subjective Date of service: 04/09/18 Principal diagnosis: decubitus ulcer in the sacrum, metabolic encephalopathy, polymyositis, Interval history: Patient seen and examined and appeared lying quietly in bed. Denies any fever. Complains of pain in both lower extremities. No fever. Refuse to go to SNF Objective - Constitutional Vitals: Vital Signs - 12hr 04/08/18 04/09/18 04/09/18 22:00 02:51 07:16 Temperature 99.6 F 98.6 F Pulse Rate 118 H 115 H Pulse Rate [ 99 H Apical] Respiratory 18 18 16 Rate Blood Pressure 92/53 91/55 O2 Sat by Pulse 97 100 100 Oximetry - Labs CBC & Chem 7: 04/09/18 05:14 04/10/18 05:48 Labs: Abnormal lab results 04/09/18 04/09/18 Range/Units 05:14 05:14 RBC 3.57 L (3.65-5.03) M/mm3 Hgb 9.5 L (10.1-14.3) gm/dl Hct 28.9 L (30.3-42.9) % MCH 27 L (28-32) pg RDW 16.2 H (13.2-15.2) % Lymph % (Auto) 44.0 H (13.4-35.0) % [place] % (Auto) 12.8 H (0.0-7.3) % [place] # 0.9 H (0.0-0.8) K/mm3 Creatinine < 0.2 L (0.7-1.2) mg/dL Glucose 102 H (65-100) mg/dL Calcium 8.1 L (8.4-10.2) mg/dL ALT 6 L (7-56) units/L Alkaline Phosphatase 143 H (35-129) units/L Albumin 2.2 L (3.9-5) g/dL
[2018-04-09] MEDS ORDERED: D5NS 1,000 ML IV SCH (09:00)
[2018-04-09 09:53] LABS: Iron 33 ug/dL (37-170); Total Iron Binding Capacity 108 mcg/dL (250-450)
[2018-04-09] MEDS: SODIUM CHLORIDE FLUSH SYRINGE 10 ML IV SCH ×2 (10:59→21:30)
[2018-04-10] MEDS: NEURONTIN PO SCH ×2 (05:08→13:27)
[2018-04-10] MEDS: ULTRAM PO PRN (05:09)
[2018-04-10] MEDS: MORPHINE IV PRN (05:20)
[2018-04-10 06:47] LABS: Alanine Aminotransferase 7 units/L (7-56); Albumin 2.6 g/dL (3.9-5); BUN/Creatinine Ratio 30; Blood Urea Nitrogen 6 mg/dL (7-17); Calcium 8.6 mg/dL (8.4-10.2); Hemolysis Index 30
[2018-04-10 09:03] VITALS: BP 105/63
[2018-04-10] MEDS: SODIUM CHLORIDE FLUSH SYRINGE 10 ML IV SCH (10:00)
--- NOTE | 2018-04-10 11:32 | Discharge Summary ---
Providers - Providers Date of Admission: 04/06/18 19:01 Date of discharge: 04/10/18 Attending physician: CHELI CHRISTIANSON 04/06/18 17:56 Consult to Wound/ET Nurse [CONS] Routine Reason For Exam: wound eval 04/08/18 10:45 Physical Therapy Evaluation and Treat [CONS] Routine Comment: Reason For Exam: Debility Primary care physician: SANJAY HAAS Hospitalization Condition: Stable Pertinent studies: Ct head: No CT evidence of acute abnormality Hospital course: Brief History: 67-year-old chronically ill, bedbound patient due to general weakness secondary to polymyositis, is brought in by daughter for complaint of progressive bedsores , patient has not been eating or drinking well, reported that care has been inadequate, and she feels patient needs a higher level of care, likely half-way placement. Patient was hospitalized here from March 07 through March 13 of this year, one month ago for difficulty swallowing, was found to have esophageal stricture, s/p dilated by EGD, and discharged to rehabilitation, and has been home for approximately 2 weeks following discharge from rehab. She was admitted to hospital, wound care consulted. Nutrition was consulted for dietary recommendation for her ongoing malnutrition. CM notified and SNF placement was being arranged. Then patient and family decided not to go with SNF rather go home with . She was then discharged to in stable condition. Discharge diagnosis and management: - Encephalopathy- metabolic CT Head - normal Improvement to baseline now - Severe malnutrition Encourage increased protein intake, diet as tolerated, aspiration precautions. tolerating diet - Sacral decubitus ulcer, stage III wound care consulted, cont wound care. - Immobility due to polymyositis bed alarm, fall precautions, supportive care. - Dysphagia Chronic, supportive care. Ensure prn, aspiration precautions. s/p EGd and dilatation by GI during previous admission - Anemia, of CD, monitored H/H, no overt active bleeding - h/o prior CVA, no change noted on CT head, supportive care - DVT prophylaxis SCD to BLE while in bed. -d/c with under family care Radiological data: CT head: No CT evidence of acute abnormality Physical exam Constitutional: Mal nourished,coiled up in bed. Has contracture in the low estimated Head: Normocephalic atraumatic Eyes: Pupils are equal round and reactive to light Nose: No enlarged turbinates, no septal deviation. Mouth: Moist mucous membranes. Neck: Supple no thyromegaly. No bruit. No JVD Heart: Regular rate and rhythm, S1-S2 abnormal. No rubs murmurs or gallop Lungs: Clear to auscultation bilaterally no rales or rhonchi Abdomen: Soft, nontender. Bowel sound are present. Extremities: No edema no cyanosis and no clubbing. Neuro: Alert oriented Oriented x3. No focal sensory or motor deficit. Skin: No rashes no hyperemic spots Psychiatry: Euthymic. Calm. Disposition: [id number]/[place]-06 HOME UNDER HOME [facility] Time spent for discharge: 34 minutes Core Measure Documentation - Palliative Care Palliative Care/ Comfort Measures: Not Applicable - Core Measures Any of the following diagnoses?: history only Exam - Constitutional Vitals: Temp Pulse Resp BP Pulse Ox 98.7 F 99 H 18 105/63 99 04/10/18 07:23 04/10/18 07:23 04/10/18 07:23 04/10/18 07:23 04/10/18 07:23 Plan Activity: up only with assistance Weight Bearing Status: Non-Weight Bearing Diet: low fat, low salt Wound: per wound nurse instructions Durable Medical Equipment Needed Upon Discharge: other (air matress) Follow up with: SANJAY HAAS MD [Primary Care Provider] - 3-5 Days Prescriptions: ALPRAZolam [Xanax TAB] 0.5 mg PO Q8H PRN #14 tablet PRN Reason: Anxiety Baclofen [Lioresal] 10 mg PO BID PRN #60 tablet PRN Reason: muscle spasms Gabapentin [Neurontin] 300 mg PO Q8HR #30 capsule HYDROcodone/APAP 5-325 [[place] 5-325 mg TAB] 1 - 2 each PO Q6HR PRN #14 tablet PRN Reason: Pain Sennosides Tab [Senokot] 8.6 mg PO Q12H PRN #20 tablet PRN Reason: Laxative Effect traMADol [Ultram 50 MG tab] 50 mg PO TID PRN #14 tablet PRN Reason: Pain, Moderate (4-6)
[2018-04-10] MEDS: LIORESAL PO PRN (13:33)
== END 2018-04-10 15:15 | disposition home health service (06) | DRG 70 ==
LOC: ED 12:26 → 2B-ACE 19:01
PROVIDERS: ADMIT Internal Medicine; ATTEND Internal Medicine
DX: G93.41 Metabolic encephalopathy (principal); E43 Unspecified severe protein-calorie malnutrition; L89.153 Pressure ulcer of sacral region, stage 3; M33.20 Polymyositis, organ involvement unspecified; Z68.1 Body mass index [BMI] 19.9 or less, adult; D63.8 Anemia in other chronic diseases classified elsewhere; R13.14 Dysphagia, pharyngoesophageal phase; Z74.09 Other reduced mobility; L89.219 Pressure ulcer of right hip, unspecified stage; Z74.01 Bed confinement status; Z88.0 Allergy status to penicillin; Z88.2 Allergy status to sulfonamides; Z88.1 Allergy status to other antibiotic agents; Z86.73 Personal history of transient ischemic attack (TIA), and cerebral infarction without residual deficits; Z90.710 Acquired absence of both cervix and uterus; Z79.899 Other long term (current) drug therapy; Z82.49 Family history of ischemic heart disease and other diseases of the circulatory system
CPT/HCPCS: 36415; 70450; 80048; 80053; 81001; 82140; 82607; 82747; 82962; 83550; 84439; 84443; 85025; 85610; 87040; J2270; J7030; J7040; J7042

== ENCOUNTER 2018-05-29 01:05 | Emergency (ER) | payer MEDICARE ==
[2018-05-29 02:07] LABS: Basophils # (Auto) 0.1 K/mm3 (0.0-0.1); Basophils % (Auto) 0.8 % (0.0-1.8); Eosinophils # (Auto) 0.1 K/mm3 (0.0-0.4); Eosinophils % (Auto) 0.9 % (0.0-4.3); Hematocrit 33.4 % (30.3-42.9); Hemoglobin 10.8 gm/dl (10.1-14.3); Lymphocytes # (Auto) 3.4 K/mm3 (1.2-5.4); Lymphocytes % (Auto) 37.8 % (13.4-35.0); Mean Corpuscular HGB Conc 33 % (30-34); Mean Corpuscular Hemoglobin 27 pg (28-32); Mean Corpuscular Volume 84 fl (79-97); Monocytes % (Auto) 11.6 % (0.0-7.3); Platelet Count 383 K/mm3 (140-440); Red Blood Count 3.99 M/mm3 (3.65-5.03)
[2018-05-29 02:24] LABS: BUN/Creatinine Ratio 35; Blood Urea Nitrogen 7 mg/dL (7-17); Calcium 8.6 mg/dL (8.4-10.2); Hemolysis Index 8
[2018-05-29] MEDS ORDERED: ULTRAM PO ONE (04:00)
[2018-05-29] MEDS ORDERED: KETALAR IV ONE (06:14)
--- NOTE | 2018-05-29 06:15 | Emergency Department Report ---
ED General Adult HPI - General Chief complaint: Pain General Stated complaint: LEG PAIN Time Seen by Provider: 05/29/18 06:07 Source: patient, EMS (ems notes not available at time of chart dictation), RN notes reviewed, old records reviewed Mode of arrival: Ambulatory Limitations: Physical Limitation - History of Present Illness Initial comments: This is a 68-year-old female who is not known to this provider previously. She is bedbound secondary to polymyositis, has a chronic sacral wound, dysphagia, history of anemia, stroke. Patient presents to the ER with a complaint of nontraumatic bilateral anterior thigh pain. This pain is chronic, and radiates down to the lower extremities. It typically does not have exacerbating or relieving factors. Patient indicated prior to my arrival that she is out of her trauma doll. EMS gave the patient 100 g of fentanyl prior to arrival. The patient reports chronic pain. Her symptoms are not new, worsening or different. She denies cough, vomiting, irritative and obstructive urinary symptoms. -: Gradual Location: left, right, lower extremity Radiation: extremity Severity scale (0 -10): 4 Quality: burning, aching Consistency: intermittent Improves with: medication, rest Worsens with: movement Associated Symptoms: loss of appetite, malaise, weakness. denies: confusion, chest pain, cough, diaphoresis, fever/chills, headaches, nausea/vomiting, rash, seizure, shortness of breath, syncope - Related Data Previous Rx's Medication Instructions Recorded Last Taken Type ALPRAZolam [Xanax TAB] 0.5 mg PO Q8H PRN #14 tablet 04/10/18 Unknown Rx Baclofen [Lioresal] 10 mg PO BID PRN #60 tablet 04/10/18 Unknown Rx Gabapentin [Neurontin] 300 mg PO Q8HR #30 capsule 04/10/18 Unknown Rx HYDROcodone/APAP 5-325 [[place] 1 - 2 each PO Q6HR PRN #14 tablet 04/10/18 Unknown Rx 5-325 mg TAB] Sennosides Tab [Senokot] 8.6 mg PO Q12H PRN #20 tablet 04/10/18 Unknown Rx traMADol [Ultram 50 MG tab] 50 mg PO TID PRN #14 tablet 04/10/18 Unknown Rx Acetaminophen [Tylenol Arthritis] 650 mg PO Q6HR PRN #30 tablet.er 05/29/18 Unknown Rx Ibuprofen [Motrin] 600 mg PO Q8H PRN #30 tablet 05/29/18 Unknown Rx Allergies Allergy/AdvReac Type Severity Reaction Status Date / Time penicillin Allergy Anaphylaxis Verified 05/26/17 17:25 sulfamethoxazole Allergy Anaphylaxis Verified 05/26/17 17:25 [From Bactrim] trimethoprim [From Bactrim] Allergy Anaphylaxis Verified 05/26/17 17:25 ED Review of Systems ROS: Stated complaint: LEG PAIN Other details as noted in HPI Constitutional: malaise. denies: fever Eyes: denies: eye discharge ENT: denies: epistaxis Cardiovascular: denies: chest pain Gastrointestinal: denies: vomiting Genitourinary: denies: dysuria Musculoskeletal: arthralgia, myalgia Skin: denies: lesions Neurological: weakness Psychiatric: anxiety ED Past Medical Hx - Past Medical History Hx CVA: Yes Hx Arthritis: Yes Additional medical history: polymyositis, fibromyalgia, and cervical spinal stenosis - Surgical History Additional Surgical History: Hip surgery Hysterectomy. Colon Polyps - Social History Smoking Status: Never Smoker Substance Use Type: None - Medications Home Medications: Home Medications Medication Instructions Recorded Confirmed Last Taken Type ALPRAZolam [Xanax TAB] 0.5 mg PO Q8H PRN #14 tablet 04/10/18 Unknown Rx Baclofen [Lioresal] 10 mg PO BID PRN #60 tablet 04/10/18 Unknown Rx Gabapentin [Neurontin] 300 mg PO Q8HR #30 capsule 04/10/18 Unknown Rx HYDROcodone/APAP 5-325 [[place] 1 - 2 each PO Q6HR PRN #14 tablet 04/10/18 Unknown Rx 5-325 mg TAB] Sennosides Tab [Senokot] 8.6 mg PO Q12H PRN #20 tablet 04/10/18 Unknown Rx traMADol [Ultram 50 MG tab] 50 mg PO TID PRN #14 tablet 04/10/18 Unknown Rx Acetaminophen [Tylenol Arthritis] 650 mg PO Q6HR PRN #30 tablet.er 05/29/18 Unknown Rx Ibuprofen [Motrin] 600 mg PO Q8H PRN #30 tablet 05/29/18 Unknown Rx ED Physical Exam - General Limitations: Physical Limitation General appearance: alert, in no apparent distress - Head Head exam: Present: atraumatic, normocephalic - Eye Eye exam: Present: normal appearance, EOMI - ENT ENT exam: Present: normal exam, normal orophraynx, mucous membranes moist, normal external ear exam - Neck Neck exam: Present: normal inspection, full ROM. Absent: tenderness, meningismus - Respiratory Respiratory exam: Present: normal lung sounds bilaterally. Absent: respiratory distress - Cardiovascular Cardiovascular Exam: Present: regular rate, normal rhythm, normal heart sounds. Absent: bradycardia, tachycardia, irregular rhythm, systolic murmur, diastolic murmur, rubs, gallop - GI/Abdominal GI/Abdominal exam: Present: soft. Absent: distended, tenderness, guarding, rebound, rigid, pulsatile mass - Rectal Rectal exam: Absent: normal inspection (there is a 3 x 3 x 3 cm large sacral ulcer, with no redness, pus or streaking. There is no discharge.) - Extremities Exam Extremities exam: Present: normal inspection, other (2+ pulses noted in the bilateral upper, lower extremities. Compartments soft. No long bony tenderness. The pelvis is stable.). Absent: full ROM (decreased range of motion at baseline and the bilateral lower extremities. Full range of motion of the bilateral upper extremities), tenderness, pedal edema, joint swelling, calf tenderness - Back Exam Back exam: Present: normal inspection, full ROM. Absent: tenderness, CVA tenderness (R), paraspinal tenderness, vertebral tenderness - Neurological Exam Neurological exam: Present: alert (there is no facial droop. The tongue is midline. The extraocular movements are intact bilaterally. Hearing is grossly intact. Phonation within normal limits.), oriented X3, motor sensory deficit ( chronic weakness in the bilateral lower extremities.), other (5 out of 5 strength in the bilateral upper extremities. Sensation intact to light touch in 4 extremities. Chronic weakness in the lower extremities.) - Psychiatric Psychiatric exam: Present: normal affect, normal mood - Skin Skin exam: Present: warm, dry, intact, normal color. Absent: rash ED Course Vital Signs 05/29/18 05/29/18 05/29/18 01:16 01:28 01:30 Temperature 99.1 F Pulse Rate 100 H 95 H 97 H Respiratory 18 20 26 H Rate Blood Pressure 116/76 Blood Pressure 116/76 [Left] O2 Sat by Pulse 98 100 Oximetry 05/29/18 05/29/18 05/29/18 01:45 02:00 02:16 Temperature Pulse Rate 91 H 103 H 107 H Respiratory 13 22 18 Rate Blood Pressure 122/75 122/75 91/49 Blood Pressure [Left] O2 Sat by Pulse 99 99 97 Oximetry 05/29/18 05/29/18 05/29/18 02:30 02:45 03:00 Temperature Pulse Rate 103 H 109 H 98 H Respiratory 20 19 19 Rate Blood Pressure 103/65 125/77 125/77 Blood Pressure [Left] O2 Sat by Pulse 99 88 99 Oximetry 05/29/18 05/29/18 05/29/18 03:15 03:30 03:45 Temperature Pulse Rate 109 H 104 H 105 H Respiratory 15 20 21 Rate Blood Pressure 101/63 101/63 101/63 Blood Pressure [Left] O2 Sat by Pulse 99 99 99 Oximetry 05/29/18 05/29/18 05/29/18 04:00 04:16 04:52 Temperature Pulse Rate 111 H 98 H Respiratory 26 H 24 Rate Blood Pressure 101/63 125/73 116/63 Blood Pressure [Left] O2 Sat by Pulse 97 97 Oximetry 05/29/18 05/29/18 05/29/18 05:00 05:13 05:19 Temperature 99 F Pulse Rate 98 H Respiratory 20 16 Rate Blood Pressure 116/63 Blood Pressure 107/58 [Left] O2 Sat by Pulse 99 99 Oximetry 05/29/18 07:50 Temperature Pulse Rate 93 H Respiratory 22 Rate Blood Pressure Blood Pressure 134/43 [Left] O2 Sat by Pulse 98 Oximetry ED Medical Decision Making - Lab Data Result diagrams: 05/29/18 01:42 05/29/18 01:42 Vital Signs 05/29/18 05/29/18 05/29/18 01:16 01:28 01:30 Temperature 99.1 F Pulse Rate 100 H 95 H 97 H Respiratory 18 20 26 H Rate Blood Pressure 116/76 Blood Pressure 116/76 [Left] O2 Sat by Pulse 98 100 Oximetry 05/29/18 05/29/18 05/29/18 01:45 02:00 02:16 Temperature Pulse Rate 91 H 103 H 107 H Respiratory 13 22 18 Rate Blood Pressure 122/75 122/75 91/49 Blood Pressure [Left] O2 Sat by Pulse 99 99 97 Oximetry 05/29/18 05/29/18 05/29/18 02:30 02:45 03:00 Temperature Pulse Rate 103 H 109 H 98 H Respiratory 20 19 19 Rate Blood Pressure 103/65 125/77 125/77 Blood Pressure [Left] O2 Sat by Pulse 99 88 99 Oximetry 05/29/18 05/29/18 05/29/18 03:15 03:30 03:45 Temperature Pulse Rate 109 H 104 H 105 H Respiratory 15 20 21 Rate Blood Pressure 101/63 101/63 101/63 Blood Pressure [Left] O2 Sat by Pulse 99 99 99 Oximetry 05/29/18 05/29/18 05/29/18 04:00 04:16 04:52 Temperature Pulse Rate 111 H 98 H Respiratory 26 H 24 Rate Blood Pressure 101/63 125/73 116/63 Blood Pressure [Left] O2 Sat by Pulse 97 97 Oximetry 05/29/18 05/29/18 05/29/18 05:00 05:13 05:19 Temperature 99 F Pulse Rate 98 H Respiratory 20 16 Rate Blood Pressure 116/63 Blood Pressure 107/58 [Left] O2 Sat by Pulse 99 99 Oximetry 05/29/18 07:50 Temperature Pulse Rate 93 H Respiratory 22 Rate Blood Pressure Blood Pressure 134/43 [Left] O2 Sat by Pulse 98 Oximetry Lab Results 05/29/18 05/29/18 05/29/18 Range/Units 01:42 01:42 01:42 WBC 8.9 (4.5-11.0) K/mm3 RBC 3.99 (3.65-5.03) M/mm3 Hgb 10.8 (10.1-14.3) gm/dl Hct 33.4 (30.3-42.9) % MCV 84 (79-97) fl MCH 27 L (28-32) pg MCHC 33 (30-34) % RDW 18.0 H (13.2-15.2) % Plt Count 383 (140-440) K/mm3 Lymph % (Auto) 37.8 H (13.4-35.0) % [place] % (Auto) 11.6 H (0.0-7.3) % Eos % (Auto) 0.9 (0.0-4.3) % Baso % (Auto) 0.8 (0.0-1.8) % Lymph # 3.4 (1.2-5.4) K/mm3 [place] # 1.0 H (0.0-0.8) K/mm3 Eos # 0.1 (0.0-0.4) K/mm3 Baso # 0.1 (0.0-0.1) K/mm3 Seg Neutrophils % 48.9 (40.0-70.0) % Seg Neutrophils # 4.4 (1.8-7.7) K/mm3 Sodium 138 (137-145) mmol/L Potassium 3.8 (3.6-5.0) mmol/L Chloride 103.2 (98-107) mmol/L Carbon Dioxide 22 (22-30) mmol/L Anion Gap 17 mmol/L BUN 7 (7-17) mg/dL Creatinine < 0.2 L (0.7-1.2) mg/dL Estimated GFR > 60 ml/min BUN/Creatinine Ratio 35 % Glucose 104 H (65-100) mg/dL Calcium 8.6 (8.4-10.2) mg/dL Total Creatine Kinase 53 (30-135) units/L - Medical Decision Making Differential diagnosis, including but not limited to: Narcotic dependence, chronic pain syndrome, polymyositis Assessment and plan: 68-year-old female with acute on chronic pain. As for prior documentation from her recent discharge summary, this is a chronic syndrome. Patient is discharged on tramadol and [place] from a recent admission in beginning of April. The patient's daughter contacted nursing staff and indicated that the patient was having increased musculoskeletal pain, so they increased the frequency of pain medication administration. Vital signs have been stable, physical exam appears to be unchanged from prior, no evidence of superinfection, compartment syndrome or DVT. There does not appear to be an emergent condition at this time, and the patient should follow- up with an outpatient primary care doctor or pain specialist for her chronic pain. Critical care attestation.: If time is entered above; I have spent that time in minutes in the direct care of this critically ill patient, excluding procedure time. ED Disposition Clinical Impression: Debility, Sacral decubitus ulcer, stage III, Chronic pain syndrome Disposition: TO HOME OR SELFCARE Is pt being admited?: No Does the pt Need Aspirin: No Condition: Good Additional Instructions: Patient should follow-up with a primary care doctor, electronic induction hardener or pain specialist within the next 7-10 days for further refill of her chronic pain medications. Patient on a number of sedating pain medications, some of which are controlled substances, and it is appropriate to follow up with any of the aforementioned long-term physicians to have these medications refilled. Due to the underlying opioid epidemic in [place], and the inherent dangers of chronic opioid use, including addiction, overdose, respiratory arrest, , narcotic prescriptions will not be refilled in this emergency room. Patient can take the nonsedating [id number] pain medications as prescribed, and she should follow up as recommended. Return to the ER right away with severely worsened pain, new pain, projectile vomiting, change in mental status, confusion, inability to tolerate liquid feeds. Referrals: ELISABETH HARRIS MD [Staff Physician] - 3-[address] [facility] [Provider Group] - 3-5 Days [facility] [Outside] - 3-5 Days
[2018-05-29] MEDS ORDERED: KETAMINE HCL IV ONE (07:47)
[2018-05-29] MEDS ORDERED: SUBLIMAZE IV ONE (07:50)
[2018-05-29] MEDS ORDERED: SUBLIMAZE ONE (07:50)
[2018-05-29 09:50] VITALS: BP 104/52
== END 2018-05-29 10:20 | disposition home or self-care (01) ==
LOC: ED 01:05
DX: L89.153 Pressure ulcer of sacral region, stage 3 (principal); R53.81 Other malaise; G89.4 Chronic pain syndrome; M19.90 Unspecified osteoarthritis, unspecified site; Z86.73 Personal history of transient ischemic attack (TIA), and cerebral infarction without residual deficits; Z90.710 Acquired absence of both cervix and uterus; Z88.0 Allergy status to penicillin; Z88.8 Allergy status to other drugs, medicaments and biological substances
CPT/HCPCS: 36415; 80048; 82550; 85025; 96374; 99284; J3010

== ENCOUNTER 2018-06-17 14:51 | Inpatient (IN) | payer MEDICARE ==
[2018-06-17] MEDS ORDERED: PEPCID IV ONE (15:42)
[2018-06-17] MEDS ORDERED: BENADRYL IV ONE (15:42)
[2018-06-17] MEDS ORDERED: DECADRON IV ONE (15:42)
[2018-06-17] MEDS ORDERED: NACL 0.9% 500 ML 500 ML ONE (15:45)
[2018-06-17] MEDS ORDERED: NACL 0.9% 1000 ML 1,000 ML ONE (15:45)
--- NOTE | 2018-06-17 15:54 | Emergency Department Report ---
ED General Adult HPI - General Chief complaint: Fever Stated complaint: NAUSEA Time Seen by Provider: 06/17/18 15:27 - History of Present Illness Initial comments: She is a 68-year-old past medical history of fibromyalgia who presents with fever and painful urination. Patient had fever from her facility. She states that she's also been having some nausea. When she urinates the pain is a 4 out of 10 is an achy type of pain that does not radiate anywhere. - Related Data Previous Rx's Medication Instructions Recorded Last Taken Type ALPRAZolam [Xanax TAB] 0.5 mg PO Q8H PRN #14 tablet 04/10/18 Unknown Rx Baclofen [Lioresal] 10 mg PO BID PRN #60 tablet 04/10/18 Unknown Rx Gabapentin [Neurontin] 300 mg PO Q8HR #30 capsule 04/10/18 Unknown Rx HYDROcodone/APAP 5-325 [[place] 1 - 2 each PO Q6HR PRN #14 tablet 04/10/18 Unknown Rx 5-325 mg TAB] Sennosides Tab [Senokot] 8.6 mg PO Q12H PRN #20 tablet 04/10/18 Unknown Rx traMADol [Ultram 50 MG tab] 50 mg PO TID PRN #14 tablet 04/10/18 Unknown Rx Acetaminophen [Tylenol Arthritis] 650 mg PO Q6HR PRN #30 tablet.er 05/29/18 Unknown Rx Ibuprofen [Motrin] 600 mg PO Q8H PRN #30 tablet 05/29/18 Unknown Rx Allergies Allergy/AdvReac Type Severity Reaction Status Date / Time codeine Allergy Anaphylaxis Verified 06/17/18 15:21 penicillin Allergy Anaphylaxis Verified 05/26/17 17:25 sulfamethoxazole Allergy Anaphylaxis Verified 05/26/17 17:25 [From Bactrim] trimethoprim [From Bactrim] Allergy Anaphylaxis Verified 05/26/17 17:25 ED Review of Systems ROS: Stated complaint: NAUSEA Other details as noted in HPI Constitutional: chills, fever Eyes: denies: eye pain, eye discharge, vision change ENT: denies: ear pain, throat pain Respiratory: denies: cough, shortness of breath, wheezing Cardiovascular: denies: chest pain, palpitations Endocrine: no symptoms reported Gastrointestinal: nausea, vomiting. denies: abdominal pain, diarrhea Genitourinary: denies: urgency, dysuria, discharge Musculoskeletal: denies: back pain, joint swelling, arthralgia Skin: denies: rash, lesions Neurological: denies: headache, weakness, paresthesias Psychiatric: denies: anxiety, depression Hematological/Lymphatic: denies: easy bleeding, easy bruising ED Past Medical Hx - Past Medical History Hx CVA: Yes Hx Arthritis: Yes Additional medical history: polymyositis, fibromyalgia, and cervical spinal stenosis - Surgical History Additional Surgical History: Hip surgery Hysterectomy. Colon Polyps - Social History Smoking Status: Never Smoker Substance Use Type: None - Medications Home Medications: Home Medications Medication Instructions Recorded Confirmed Last Taken Type ALPRAZolam [Xanax TAB] 0.5 mg PO Q8H PRN #14 tablet 04/10/18 Unknown Rx Baclofen [Lioresal] 10 mg PO BID PRN #60 tablet 04/10/18 Unknown Rx Gabapentin [Neurontin] 300 mg PO Q8HR #30 capsule 04/10/18 Unknown Rx HYDROcodone/APAP 5-325 [[place] 1 - 2 each PO Q6HR PRN #14 tablet 04/10/18 Unknown Rx 5-325 mg TAB] Sennosides Tab [Senokot] 8.6 mg PO Q12H PRN #20 tablet 04/10/18 Unknown Rx traMADol [Ultram 50 MG tab] 50 mg PO TID PRN #14 tablet 04/10/18 Unknown Rx Acetaminophen [Tylenol Arthritis] 650 mg PO Q6HR PRN #30 tablet.er 05/29/18 Unknown Rx Ibuprofen [Motrin] 600 mg PO Q8H PRN #30 tablet 05/29/18 Unknown Rx ED Physical Exam - General General appearance: alert, in no apparent distress - Head Head exam: Present: atraumatic, normocephalic - Eye Eye exam: Present: normal appearance - ENT ENT exam: Present: mucous membranes moist - Neck Neck exam: Present: normal inspection - Respiratory Respiratory exam: Present: normal lung sounds bilaterally. Absent: respiratory distress - Cardiovascular Cardiovascular Exam: Present: regular rate, normal rhythm. Absent: systolic murmur, diastolic murmur, rubs, gallop - GI/Abdominal GI/Abdominal exam: Present: soft, normal bowel sounds - Extremities Exam Extremities exam: Present: normal inspection - Back Exam Back exam: Present: normal inspection - Neurological Exam Neurological exam: Present: alert, oriented X3 - Psychiatric Psychiatric exam: Present: normal affect, normal mood - Skin Skin exam: Present: warm, dry, intact, normal color. Absent: rash ED Course Vital Signs 06/17/18 06/17/18 06/17/18 15:54 17:30 19:55 Temperature 102 F H Pulse Rate 125 H 108 H Respiratory 22 20 Rate Blood Pressure 115/76 Blood Pressure [Right] O2 Sat by Pulse 97 Oximetry 06/17/18 20:01 Temperature 99.6 F Pulse Rate 118 H Respiratory 22 Rate Blood Pressure Blood Pressure 111/61 [Right] O2 Sat by Pulse 100 Oximetry - Reevaluation(s) Reevaluation #1: 06/17/18 20:14 Sepsis reevaluation +2 pulses in all extremities Patient is tachycardic no rubs or gallops Breath sounds clear bilaterally Refills less than 2 seconds Patient was alert and oriented ED Medical Decision Making - Lab Data Result diagrams: 06/17/18 16:03 06/17/18 16:03 Lab Results 06/17/18 06/17/18 06/17/18 Range/Units 16:03 16:03 16:03 WBC 17.5 H (4.5-11.0) K/mm3 RBC 5.49 H (3.65-5.03) M/mm3 Hgb 14.5 H (10.1-14.3) gm/dl Hct 45.9 H (30.3-42.9) % MCV 84 (79-97) fl MCH 26 L (28-32) pg MCHC 32 (30-34) % RDW 17.7 H (13.2-15.2) % Plt Count 349 (140-440) K/mm3 Lymph % (Auto) 9.0 L (13.4-35.0) % [place] % (Auto) 8.0 H (0.0-7.3) % Eos % (Auto) 0.0 (0.0-4.3) % Baso % (Auto) 0.2 (0.0-1.8) % Lymph # 1.6 (1.2-5.4) K/mm3 [place] # 1.4 H (0.0-0.8) K/mm3 Eos # 0.0 (0.0-0.4) K/mm3 Baso # 0.0 (0.0-0.1) K/mm3 Seg Neutrophils % 82.8 H (40.0-70.0) % Seg Neutrophils # 14.5 H (1.8-7.7) K/mm3 PT 16.4 H (12.2-14.9) Sec. INR 1.25 H (0.87-1.13) VBG pH (7.320-7.420) Sodium 139 (137-145) mmol/L Potassium 3.5 L (3.6-5.0) mmol/L Chloride 97.2 L (98-107) mmol/L Carbon Dioxide 24 (22-30) mmol/L Anion Gap 21 mmol/L BUN 19 H (7-17) mg/dL Creatinine 0.2 L (0.7-1.2) mg/dL Estimated GFR > 60 ml/min BUN/Creatinine Ratio 95 % Glucose 132 H (65-100) mg/dL Lactic Acid (0.7-2.0) mmol/L Calcium 9.3 (8.4-10.2) mg/dL Total Bilirubin 0.20 (0.1-1.2) mg/dL AST 21 (5-40) units/L ALT 12 (7-56) units/L Alkaline Phosphatase 112 (35-129) units/L Total Protein 7.8 (6.3-8.2) g/dL Albumin 3.4 L (3.9-5) g/dL Albumin/Globulin Ratio 0.8 % 06/17/18 06/17/18 06/17/18 Range/Units 16:03 16:03 17:42 WBC (4.5-11.0) K/mm3 RBC (3.65-5.03) M/mm3 Hgb (10.1-14.3) gm/dl Hct (30.3-42.9) % MCV (79-97) fl MCH (28-32) pg MCHC (30-34) % RDW (13.2-15.2) % Plt Count (140-440) K/mm3 Lymph % (Auto) (13.4-35.0) % [place] % (Auto) (0.0-7.3) % Eos % (Auto) (0.0-4.3) % Baso % (Auto) (0.0-1.8) % Lymph # (1.2-5.4) K/mm3 [place] # (0.0-0.8) K/mm3 Eos # (0.0-0.4) K/mm3 Baso # (0.0-0.1) K/mm3 Seg Neutrophils % (40.0-70.0) % Seg Neutrophils # (1.8-7.7) K/mm3 PT (12.2-14.9) Sec. INR (0.87-1.13) VBG pH 7.333 (7.320-7.420) Sodium (137-145) mmol/L Potassium (3.6-5.0) mmol/L Chloride (98-107) mmol/L Carbon Dioxide (22-30) mmol/L Anion Gap mmol/L BUN (7-17) mg/dL Creatinine (0.7-1.2) mg/dL Estimated GFR ml/min BUN/Creatinine Ratio % Glucose (65-100) mg/dL Lactic Acid 3.10 H* 2.00 (0.7-2.0) mmol/L Calcium (8.4-10.2) mg/dL Total Bilirubin (0.1-1.2) mg/dL AST (5-40) units/L ALT (7-56) units/L Alkaline Phosphatase (35-129) units/L Total Protein (6.3-8.2) g/dL Albumin (3.9-5) g/dL Albumin/Globulin Ratio % - EKG Data -: EKG Interpreted by Vt - EKG Data 06/17/18 18:17 EKG shows rate [address] segment elevation or T-wave inversion normal axis. - Radiology Data Radiology results: report reviewed, image reviewed Chest x-ray: No acute cardiopulmonary process. - Medical Decision Making Chief medical diagnosis: Sepsis secondary to urinary tract infection differential medical diagnosis sepsis secondary to pneumonia, sepsis secondary to cellulitis I will give 30 mL per kilo bolus of IV fluids CBC BMP EKG, lactic acid, blood cultures, IV antibiotics and I will admit the patient to the hospital service due to patient having life- threatening medical condition. Critical Care Time: Yes Critical care time in (mins) excluding proc time.: 60 Critical care attestation.: If time is entered above; I have spent that time in minutes in the direct care of this critically ill patient, excluding procedure time. Critical care time spent at patient's bedside 30 minutes Critical care time spent reviewing laboratory findings 10 minutes Critical care time sent patient's family 10 minutes Critical care time spent with consultants 10 minutes. ED Disposition Clinical Impression: Sepsis Qualifiers: Sepsis type: sepsis due to unspecified organism Qualified Code(s): A41.9 - Sepsis, unspecified organism UTI (urinary tract infection) Qualifiers: Urinary tract infection type: acute cystitis Hematuria presence: without hematuria Qualified Code(s): N30.00 - Acute cystitis without hematuria Disposition: OP ADMIT IP TO THIS HOSP Is pt being admited?: Yes Does the pt Need Aspirin: No Condition: Stable Referrals: PRIMARY CARE, [Primary Care Provider] - 3-5 Days
[2018-06-17] MEDS ORDERED: NACL 0.9% 500 ML 500 ML IV ONE (15:57)
[2018-06-17] MEDS ORDERED: SUBLIMAZE IV ONE (16:01)
[2018-06-17] MEDS ORDERED: NACL 0.9% 1000 ML IV ONE (16:01)
[2018-06-17] MEDS ORDERED: SUBLIMAZE ONE (16:05)
[2018-06-17] MEDS ORDERED: ZOSYN/NS 4.5GM/100ML 0 GM/0 ML VIAL IV ONE (16:06)
[2018-06-17] MEDS: LEVAQUIN 750MG/150ML 750 MG/150 ML BAG IV SCH (16:30)
[2018-06-17] MEDS ORDERED: TYLENOL PR ONE (16:34)
--- NOTE | 2018-06-17 16:44 | XRay Report ---
FINAL REPORT EXAM: XR CHEST 1V AP HISTORY: possible Sepsis TECHNIQUE: Frontal portable view of the chest Comparison: None FINDINGS: There is no evidence of focal infiltrate, pneumothorax or pleural fluid collection. The cardiac silhouette is normal size. The thoracic aorta is unremarkable. The bony structures are notable for dextrocurvature of the thoracic spine and deformity of the left humeral neck suggestive of sequela of previous fracture. The visualized portion the upper abdomen is notable for distended air-filled loops of bowel. IMPRESSION: 1. No evidence of an acute pulmonary process. 2. Distended air-filled loops of bowel in the visualized portion the upper abdomen.
[2018-06-17 16:53] LABS: Alanine Aminotransferase 12 units/L (7-56); Albumin 3.4 g/dL (3.9-5); BUN/Creatinine Ratio 95; Blood Urea Nitrogen 19 mg/dL (7-17); Calcium 9.3 mg/dL (8.4-10.2); Hemolysis Index 37
[2018-06-17 16:59] LABS: Basophils % (Auto) 0.2 % (0.0-1.8); Hematocrit 45.9 % (30.3-42.9); Hemoglobin 14.5 gm/dl (10.1-14.3); Lymphocytes # (Auto) 1.6 K/mm3 (1.2-5.4); Mean Corpuscular HGB Conc 32 % (30-34); Mean Corpuscular Hemoglobin 26 pg (28-32); Mean Corpuscular Volume 84 fl (79-97); Monocytes # (Auto) 1.4 K/mm3 (0.0-0.8); Platelet Count 349 K/mm3 (140-440); Red Blood Count 5.49 M/mm3 (3.65-5.03); Red Cell Distribution Width 17.7 % (13.2-15.2)
[2018-06-17 17:09] LABS: INR 1.25 (0.87-1.13)
[2018-06-17] MEDS ORDERED: MORPHINE IV ONE (18:13)
[2018-06-17 19:01] LABS: Bacteria,Urine 4+ /HPF (Negative); Bilirubin,Urine NEG (Negative); Blood,Urine SM (Negative); Color,Urine Amber (Yellow); Mucus,Urine 3+ /HPF
[2018-06-17 19:14] LABS: WBC,Urine > 182.0 /HPF (0.0-6.0)
[2018-06-17] MEDS ORDERED: DILAUDID IV ONE (19:22)
[2018-06-17] MEDS ORDERED: ZOFRAN IV PRN (22:20)
[2018-06-17] MEDS ORDERED: REGLAN IV PRN ×2 (22:20→23:27)
[2018-06-17] MEDS ORDERED: MILK OF MAGNESIA PO PRN (22:20)
[2018-06-17] MEDS ORDERED: SODIUM CHLORIDE FLUSH SYRINGE 10 ML IV PRN (22:20)
[2018-06-17] MEDS ORDERED: HALDOL IM ONE (22:40)
--- NOTE | 2018-06-17 23:14 | History and Physical Report ---
History of Present Illness Date of examination: 06/17/18 Date of admission: 06/17/18 Chief complaint: fever, urinary symptoms History of present illness: Pt is a 68-year-old female with PMHx of polymyositosis, recent CVA, anxiety and early dementia who presents to the ER today with fever and painful urination. Patient lives at home with family, according to family she had not eat and drinks for 2 days. Pt's daughter states (over the phone) that She has been having some memory problem and she has been very anxious, she also reports that she suffer a mild strokes a few months ago. Pt c/o muscle tenderness, nausea, she denies abdominal pain, denies vomiting, denies constipation, denies diarrhea. Pt seems to be alert to name and place, but she is very confuse about current situation, she states she wants to go home to take care of her children (adopted children), when spoke to pt's daughter Roxie, she states that the pt is referring to her 3 sons" . In the ER, pt's UA shows nitrite positive UTI , her temp was 99.6, her BP was 111/61, her WBC was 17.5 and lactic acid was 2.70. Pt was started on Levaquin and admitted for further evaluation and treatment. Medications and Allergies Allergies Allergy/AdvReac Type Severity Reaction Status Date / Time codeine Allergy Anaphylaxis Verified 06/17/18 15:21 penicillin Allergy Anaphylaxis Verified 05/26/17 17:25 sulfamethoxazole Allergy Anaphylaxis Verified 05/26/17 17:25 [From Bactrim] trimethoprim [From Bactrim] Allergy Anaphylaxis Verified 05/26/17 17:25 Home Medications Medication Instructions Recorded Confirmed Last Taken Type ALPRAZolam [Xanax TAB] 0.5 mg PO Q8H PRN #14 tablet 04/10/18 Unknown Rx Baclofen [Lioresal] 10 mg PO BID PRN #60 tablet 04/10/18 Unknown Rx Gabapentin [Neurontin] 300 mg PO Q8HR #30 capsule 04/10/18 Unknown Rx HYDROcodone/APAP 5-325 [[place] 1 - 2 each PO Q6HR PRN #14 tablet 04/10/18 Unknown Rx 5-325 mg TAB] Sennosides Tab [Senokot] 8.6 mg PO Q12H PRN #20 tablet 04/10/18 Unknown Rx traMADol [Ultram 50 MG tab] 50 mg PO TID PRN #14 tablet 04/10/18 Unknown Rx Acetaminophen [Tylenol Arthritis] 650 mg PO Q6HR PRN #30 tablet.er 05/29/18 Unknown Rx Ibuprofen [Motrin] 600 mg PO Q8H PRN #30 tablet 05/29/18 Unknown Rx Active Meds: Active Medications Acetaminophen (Tylenol) 650 mg PO Q4H PRN PRN Reason: Pain MILD(1-3)/Fever >100.5/RDZ Enoxaparin Sodium (Lovenox) 40 mg SUB-Q QDAY [facility] Levofloxacin/Dextrose (Levaquin 750mg/150ml) 750 mg in 150 mls @ 100 mls/hr IV Q24HR [facility]; Protocol Last Admin: 06/17/18 16:30 Dose: 100 mls/hr Sodium Chloride (Nacl 0.9% 1000 Ml) 1,000 mls @ 100 mls/hr IV DIRECT RE Lorazepam (Ativan) 0 mg IV Q4H PRN PRN Reason: Anxiety Magnesium Hydroxide (Milk Of Magnesia) 30 ml PO Q4H PRN PRN Reason: Constipation Metoclopramide HCl (Reglan) 10 mg IV Q6H PRN PRN Reason: Nausea And Vomiting Morphine Sulfate (Morphine) 2 mg IV Q4H PRN PRN Reason: Pain, Moderate (4-6) Ondansetron HCl (Zofran) 4 mg IV Q8H PRN PRN Reason: Nausea And Vomiting Senna (Senokot) 8.6 mg PO Q12HR [facility] Sodium Chloride (Sodium Chloride Flush Syringe 10 Ml) 10 ml IV BID [facility] Sodium Chloride (Sodium Chloride Flush Syringe 10 Ml) 10 ml IV PRN PRN PRN Reason: LINE FLUSH Exam - Constitutional Vitals: Temp Pulse Resp BP Pulse Ox 99.6 F 118 H 22 111/61 100 06/17/18 20:01 06/17/18 20:01 06/17/18 20:01 06/17/18 20:01 06/17/18 20:01 Results - Labs CBC & Chem 7: 06/17/18 16:03 06/17/18 16:03 Labs: Laboratory Last Values WBC 17.5 K/mm3 (4.5-11.0) H 06/17/18 16:03 RBC 5.49 M/mm3 (3.65-5.03) H 06/17/18 16:03 Hgb 14.5 gm/dl (10.1-14.3) H 06/17/18 16:03 Hct 45.9 % (30.3-42.9) H 06/17/18 16:03 MCV 84 fl (79-97) 06/17/18 16:03 MCH 26 pg (28-32) L 06/17/18 16:03 MCHC 32 % (30-34) 06/17/18 16:03 RDW 17.7 % (13.2-15.2) H 06/17/18 16:03 Plt Count 349 K/mm3 (140-440) 06/17/18 16:03 Lymph % (Auto) 9.0 % (13.4-35.0) L 06/17/18 16:03 [place] % (Auto) 8.0 % (0.0-7.3) H 06/17/18 16:03 Eos % (Auto) 0.0 % (0.0-4.3) 06/17/18 16:03 Baso % (Auto) 0.2 % (0.0-1.8) 06/17/18 16:03 Lymph # 1.6 K/mm3 (1.2-5.4) 06/17/18 16:03 [place] # 1.4 K/mm3 (0.0-0.8) H 06/17/18 16:03 Eos # 0.0 K/mm3 (0.0-0.4) 06/17/18 16:03 Baso # 0.0 K/mm3 (0.0-0.1) 06/17/18 16:03 Seg Neutrophils % 82.8 % (40.0-70.0) H 06/17/18 16:03 Seg Neutrophils # 14.5 K/mm3 (1.8-7.7) H 06/17/18 16:03 PT 16.4 Sec. (12.2-14.9) H 06/17/18 16:03 INR 1.25 (0.87-1.13) H 06/17/18 16:03 VBG pH 7.333 (7.320-7.420) 06/17/18 16:03 Sodium 139 mmol/L (137-145) 06/17/18 16:03 Potassium 3.5 mmol/L (3.6-5.0) L 06/17/18 16:03 Chloride 97.2 mmol/L (98-107) L 06/17/18 16:03 Carbon Dioxide 24 mmol/L (22-30) 06/17/18 16:03 Anion Gap 21 mmol/L 06/17/18 16:03 BUN 19 mg/dL (7-17) H 06/17/18 16:03 Creatinine 0.2 mg/dL (0.7-1.2) L 06/17/18 16:03 Estimated GFR > 60 ml/min 06/17/18 16:03 BUN/Creatinine Ratio 95 % 06/17/18 16:03 Glucose 132 mg/dL (65-100) H 06/17/18 16:03 Lactic Acid 2.70 mmol/L (0.7-2.0) H* 06/17/18 18:21 Calcium 9.3 mg/dL (8.4-10.2) 06/17/18 16:03 Total Bilirubin 0.20 mg/dL (0.1-1.2) 06/17/18 16:03 AST 21 units/L (5-40) 06/17/18 16:03 ALT 12 units/L (7-56) 06/17/18 16:03 Alkaline Phosphatase 112 units/L (35-129) 06/17/18 16:03 Total Protein 7.8 g/dL (6.3-8.2) 06/17/18 16:03 Albumin 3.4 g/dL (3.9-5) L 06/17/18 16:03 Albumin/Globulin Ratio 0.8 % 06/17/18 16:03 Urine Color [place] (Yellow) 06/17/18 18:38 Urine Turbidity Turbid (Clear) 06/17/18 18:38 Urine pH 5.0 (5.0-7.0) 06/17/18 18:38 Ur Specific [place] 1.020 (1.003-1.030) 06/17/18 18:38 Urine Protein 100 mg/dl mg/dL (Negative) 06/17/18 18:38 Urine Glucose (UA) Neg mg/dL (Negative) 06/17/18 18:38 Urine Ketones Tr mg/dL (Negative) 06/17/18 18:38 Urine Blood Sm (Negative) 06/17/18 18:38 Urine Nitrite Pos (Negative) 06/17/18 18:38 Urine Bilirubin Neg (Negative) 06/17/18 18:38 Urine Urobilinogen 2.0 mg/dL (<2.0) 06/17/18 18:38 Ur Leukocyte Esterase Mod (Negative) 06/17/18 18:38 Urine WBC (Auto) > 182.0 /HPF (0.0-6.0) H 06/17/18 18:38 Urine RBC (Auto) 28.0 /HPF (0.0-6.0) 06/17/18 18:38 Urine Bacteria (Auto) 4+ /HPF (Negative) 06/17/18 18:38 Urine Mucus 3+ /HPF 06/17/18 18:38 Urine Yeast ([place]) 3+ /HPF 06/17/18 18:38 Assessment and Plan Assessment and plan: 1. Acute febrile illness/Sepsis 2. Acute UTI 3. Leukocytosis 4. Dehydration 5. H/o polymyocytosis 6. Hypokalemia 7. Hypotension 8. H/o CVA 9. Anxiety 10. Early dementia [facility] Continue IV Levaquin NS at 100 for hydration and renal perfusion Replace Potassium Start Haldol x 1 dose for anxiety/agitation Ativan PRN for Anxiety Pain control PRN with Morphine Zofran PRN for n/v Plan of care d/w family (daughter) Pt's condition and plan of care d/w attending Advance Directives: Yes VTE prophylaxis?: Chemical Plan of care discussed with patient/family: Yes
--- NOTE | 2018-06-17 23:26 | Event Note ---
Date: 06/17/18 Skull to the room because of a brief episode of hypotension for the patient. Patient pulled her line out. Attempted several ultrasound-guided brachial vein IVs that were unsuccessful. Patient has difficulty turning her head secondary to old injury but was able to place a left-sided EJ. Patient's blood pressure the time immediately after the procedure was 111 systolic. Patient will be transported to the floor for continued therapy.
[2018-06-18] MEDS: NACL 0.9% 1000 ML 1,000 ML IV SCH ×2 (00:58→05:19)
[2018-06-18] MEDS: MORPHINE IV PRN ×2 (02:08→23:29)
[2018-06-18 06:25] LABS: Basophils % (Auto) 0.1 % (0.0-1.8); Hematocrit 34.9 % (30.3-42.9); Lymphocytes # (Auto) 1.3 K/mm3 (1.2-5.4); Lymphocytes % (Auto) 7.8 % (13.4-35.0); Mean Corpuscular HGB Conc 32 % (30-34); Mean Corpuscular Hemoglobin 26 pg (28-32); Mean Corpuscular Volume 83 fl (79-97); Monocytes # (Auto) 1.5 K/mm3 (0.0-0.8); Monocytes % (Auto) 9.1 % (0.0-7.3); Platelet Count 243 K/mm3 (140-440); Red Blood Count 4.19 M/mm3 (3.65-5.03); Red Cell Distribution Width 17.1 % (13.2-15.2)
[2018-06-18 06:43] LABS: BUN/Creatinine Ratio 45; Blood Urea Nitrogen 9 mg/dL (7-17); Calcium 7.5 mg/dL (8.4-10.2); Hemolysis Index 6
[2018-06-18] MEDS: LEVAQUIN 750MG/150ML 750 MG/150 ML BAG IV SCH (08:59)
[2018-06-18] MEDS: LOVENOX SUB-Q SCH (09:07)
[2018-06-18] MEDS: K-DUR PO SCH ×2 (09:07→22:06)
[2018-06-18] MEDS: SENOKOT PO SCH ×4 (09:08→22:05)
[2018-06-18] MEDS: SODIUM CHLORIDE FLUSH SYRINGE 10 ML IV SCH ×2 (09:12→22:17)
--- NOTE | 2018-06-18 11:07 | Progress Note ---
Assessment and Plan Assessment and plan: 68-year-old woman with past medical history of pulmonary CVA, and early dementia , presents with fever and dysuria, also complaining of anorexia sepsis secondary to UTI Continue antibiotics, follow up urine cultures were ordered but never sent, spoke to LAZARO chew to ensure they are done Dehydration Continue IV fluids Severe hypokalemia Magnesium level within normal limits, with IV and by mouth Polymyositis outpatient rx, continue pain meds Dementia with sundowning restraints as needed, but avoid if possible DVT prophylaxis Chemical History Interval history: c/o generalized body pain, from her Polymyositis, Review of systems Constitutional: c/o weakness and weightloss CVS: No chest pain, no orthopnea, no dyspnea on exertion, no pedal edema GI: No abdominal pain, no diarrhea, no vomiting, no constipation Respiratory: No shortness of breath, no wheezing, no coughing Hospitalist Physical - Physical exam Narrative exam: General.: Appears well, no distress, nontoxic, cachectic HEENT: Moist mucous membranes, extraocular muscles intact, no lymphadenopathy Neck: supple Cardiac: S1-S2 heard Lungs: clear to auscultation bilaterally Abdomen: soft , nontender, nondistended, bowel sounds positive Extremities: no edema clubbing or cyanosis Skin: no rash or lesions Neurologic: no gross focal deficits Psych: appropriate behavior, appropriate mood, corporative, judgment intact - Constitutional Vitals: Temp Pulse Resp BP Pulse Ox 99.4 F 100 H 20 119/67 100 06/18/18 08:42 06/18/18 08:42 06/18/18 08:42 06/18/18 08:42 06/18/18 08:42 Results - Labs CBC & Chem 7: 06/18/18 06:01 06/19/18 07:20 Labs: Laboratory Last Values WBC 16.8 K/mm3 (4.5-11.0) H 06/18/18 06:01 RBC 4.19 M/mm3 (3.65-5.03) 06/18/18 06:01 Hgb 11.0 gm/dl (10.1-14.3) D 06/18/18 06:01 Hct 34.9 % (30.3-42.9) D 06/18/18 06:01 MCV 83 fl (79-97) 06/18/18 06:01 MCH 26 pg (28-32) L 06/18/18 06:01 MCHC 32 % (30-34) 06/18/18 06:01 RDW 17.1 % (13.2-15.2) H 06/18/18 06:01 Plt Count 243 K/mm3 (140-440) 06/18/18 06:01 Lymph % (Auto) 7.8 % (13.4-35.0) L 06/18/18 06:01 [place] % (Auto) 9.1 % (0.0-7.3) H 06/18/18 06:01 Eos % (Auto) 0.0 % (0.0-4.3) 06/18/18 06:01 Baso % (Auto) 0.1 % (0.0-1.8) 06/18/18 06:01 Lymph # 1.3 K/mm3 (1.2-5.4) 06/18/18 06:01 [place] # 1.5 K/mm3 (0.0-0.8) H 06/18/18 06:01 Eos # 0.0 K/mm3 (0.0-0.4) 06/18/18 06:01 Baso # 0.0 K/mm3 (0.0-0.1) 06/18/18 06:01 Seg Neutrophils % 83.0 % (40.0-70.0) H 06/18/18 06:01 Seg Neutrophils # 13.9 K/mm3 (1.8-7.7) H 06/18/18 06:01 PT 16.4 Sec. (12.2-14.9) H 06/17/18 16:03 INR 1.25 (0.87-1.13) H 06/17/18 16:03 VBG pH 7.333 (7.320-7.420) 06/17/18 16:03 Sodium 141 mmol/L (137-145) 06/18/18 06:01 Potassium 2.5 mmol/L (3.6-5.0) L* D 06/18/18 06:01 Chloride 108.2 mmol/L (98-107) H 06/18/18 06:01 Carbon Dioxide 19 mmol/L (22-30) L 06/18/18 06:01 Anion Gap 16 mmol/L 06/18/18 06:01 BUN 9 mg/dL (7-17) 06/18/18 06:01 Creatinine < 0.2 mg/dL (0.7-1.2) L 06/18/18 06:01 Estimated GFR > 60 ml/min 06/18/18 06:01 BUN/Creatinine Ratio 45 % 06/18/18 06:01 Glucose 108 mg/dL (65-100) H 06/18/18 06:01 Lactic Acid 2.70 mmol/L (0.7-2.0) H* 06/17/18 18:21 Calcium 7.5 mg/dL (8.4-10.2) L D 06/18/18 06:01 Magnesium 1.80 mg/dL (1.7-2.3) 06/18/18 06:01 Total Bilirubin 0.20 mg/dL (0.1-1.2) 06/17/18 16:03 AST 21 units/L (5-40) 06/17/18 16:03 ALT 12 units/L (7-56) 06/17/18 16:03 Alkaline Phosphatase 112 units/L (35-129) 06/17/18 16:03 Total Protein 7.8 g/dL (6.3-8.2) 06/17/18 16:03 Albumin 3.4 g/dL (3.9-5) L 06/17/18 16:03 Albumin/Globulin Ratio 0.8 % 06/17/18 16:03 Urine Color Katharine (Yellow) 06/17/18 18:38 Urine Turbidity Turbid (Clear) 06/17/18 18:38 Urine pH 5.0 (5.0-7.0) 06/17/18 18:38 Ur Specific [place] 1.020 (1.003-1.030) 06/17/18 18:38 Urine Protein 100 mg/dl mg/dL (Negative) 06/17/18 18:38 Urine Glucose (UA) Neg mg/dL (Negative) 06/17/18 18:38 Urine Ketones Tr mg/dL (Negative) 06/17/18 18:38 Urine Blood Sm (Negative) 06/17/18 18:38 Urine Nitrite Pos (Negative) 06/17/18 18:38 Urine Bilirubin Neg (Negative) 06/17/18 18:38 Urine Urobilinogen 2.0 mg/dL (<2.0) 06/17/18 18:38 Ur Leukocyte Esterase Mod (Negative) 06/17/18 18:38 Urine WBC (Auto) > 182.0 /HPF (0.0-6.0) H 06/17/18 18:38 Urine RBC (Auto) 28.0 /HPF (0.0-6.0) 06/17/18 18:38 Urine Bacteria (Auto) 4+ /HPF (Negative) 06/17/18 18:38 Urine Mucus 3+ /HPF 06/17/18 18:38 Urine Yeast (Budding) 3+ /HPF 06/17/18 18:38
[2018-06-18] MEDS: PERCOCET 5/325 PO PRN (13:37)
--- NOTE | 2018-06-18 15:03 | Consultation ---
History of Present Illness Consult date: 06/18/18 Reason for consult: other (Sacral decubitus) - History of present illness History of present illness: 68 yo AAF with dementia and a sacral decubitus. Medications and Allergies Allergies Allergy/AdvReac Type Severity Reaction Status Date / Time codeine Allergy Anaphylaxis Verified 06/17/18 15:21 penicillin Allergy Anaphylaxis Verified 05/26/17 17:25 sulfamethoxazole Allergy Anaphylaxis Verified 05/26/17 17:25 [From Bactrim] trimethoprim [From Bactrim] Allergy Anaphylaxis Verified 05/26/17 17:25 Home Medications Medication Instructions Recorded Confirmed Last Taken Type ALPRAZolam [Xanax TAB] 0.5 mg PO Q8H PRN #14 tablet 04/10/18 06/18/18 Unknown Rx Baclofen [Lioresal] 10 mg PO BID PRN #60 tablet 04/10/18 06/18/18 Unknown Rx Gabapentin [Neurontin] 300 mg PO Q8HR #30 capsule 04/10/18 06/18/18 Unknown Rx Sennosides Tab [Senokot] 8.6 mg PO Q12H PRN #20 tablet 04/10/18 06/18/18 Unknown Rx traMADol [Ultram 50 MG tab] 50 mg PO TID PRN #14 tablet 04/10/18 06/18/18 Unknown Rx Acetaminophen [Tylenol Arthritis] 650 mg PO Q6HR PRN #30 tablet.er 05/29/18 Unknown Rx Active Meds: Active Medications Acetaminophen (Tylenol) 650 mg PO Q4H PRN PRN Reason: Pain MILD(1-3)/Fever >100.5/RDZ Enoxaparin Sodium (Lovenox) 40 mg SUB-Q QDAY RE Last Admin: 06/18/18 09:07 Dose: 40 mg Potassium Chloride 40 meq/ (Sodium Chloride) 1,020 mls @ 125 mls/hr IV DIRECT RE Levofloxacin/Dextrose (Levaquin 750mg/150ml) 750 mg in 150 mls @ 100 mls/hr IV Q48HR RE; Protocol Lorazepam (Ativan) 1 mg IV Q4H PRN PRN Reason: Anxiety Magnesium Hydroxide (Milk Of Magnesia) 30 ml PO Q4H PRN PRN Reason: Constipation Metoclopramide HCl (Reglan) 5 mg IV Q6H PRN PRN Reason: Nausea And Vomiting Morphine Sulfate (Morphine) 2 mg IV Q4H PRN PRN Reason: Pain, Moderate (4-6) Last Admin: 06/18/18 02:08 Dose: 2 mg Ondansetron HCl (Zofran) 4 mg IV Q8H PRN PRN Reason: Nausea And Vomiting Oxycodone/Acetaminophen (Percocet 5/325) 1 tab PO Q6H PRN PRN Reason: Pain, Moderate (4-6) Last Admin: 06/18/18 13:37 Dose: 1 tab Potassium Chloride (K-Dur) 40 meq PO BID [facility] Last Admin: 06/18/18 09:07 Dose: 40 meq Senna (Senokot) 8.6 mg PO Q12HR [facility] Last Admin: 06/18/18 09:11 Dose: 8.6 mg Sodium Chloride (Sodium Chloride Flush Syringe 10 Ml) 10 ml IV BID [facility] Last Admin: 06/18/18 09:12 Dose: 10 ml Sodium Chloride (Sodium Chloride Flush Syringe 10 Ml) 10 ml IV PRN PRN PRN Reason: LINE FLUSH Review of Systems All systems: negative (none.) Exam Vital Signs Resp Pulse Ox 22 97 06/17/18 15:15 06/17/18 15:15 - General physical appearance Positive: well developed, well nourished, no distress - Eyes Positive: PERRL, normal occular movement - ENT Positive: normal pinna, normal nares, normal mucosa, no hearing loss, no congestion - Neck Positive: no masses, no bruits, trachea midline, no venous distension - Respiratory Positive: normal expansion, normal respiratory effort, clear to auscultation - Cardiovascular Rhythm: regular Heart Sounds: Present: S1 & S2. Absent: rub, click - Extremities Extremities: no ischemia, pulses symmetrical, No edema - Breasts Breasts: deferred - Abdomen Abdomen: Present: soft, bowel sounds normal. Absent: tender, distended Hernia: none - Genitourinary Female Genitourinary: deferred - Integumentary other (There is a fairly clean 4.5 X 3.0 X 1.5 cm stage 3 sacral pressure ulcer. ) - Neurologic Neurologic: other (She is not aware that she is in the hospital.) - Psychiatric Psychiatric: appropriate mood/affect, intact judgment & insight Results - Labs 06/18/18 06:01 06/18/18 06:01 Abnormal lab results 06/17/18 06/17/18 06/17/18 Range/Units 16:03 16:03 16:03 WBC 17.5 H (4.5-11.0) K/mm3 RBC 5.49 H (3.65-5.03) M/mm3 Hgb 14.5 H (10.1-14.3) gm/dl Hct 45.9 H (30.3-42.9) % MCH 26 L (28-32) pg RDW 17.7 H (13.2-15.2) % Lymph % (Auto) 9.0 L (13.4-35.0) % [place] % (Auto) 8.0 H (0.0-7.3) % [place] # 1.4 H (0.0-0.8) K/mm3 Seg Neutrophils % 82.8 H (40.0-70.0) % Seg Neutrophils # 14.5 H (1.8-7.7) K/mm3 PT 16.4 H (12.2-14.9) Sec. INR 1.25 H (0.87-1.13) Potassium 3.5 L (3.6-5.0) mmol/L Chloride 97.2 L (98-107) mmol/L Carbon Dioxide (22-30) mmol/L BUN 19 H (7-17) mg/dL Creatinine 0.2 L (0.7-1.2) mg/dL Glucose 132 H (65-100) mg/dL Lactic Acid (0.7-2.0) mmol/L Calcium (8.4-10.2) mg/dL Albumin 3.4 L (3.9-5) g/dL Urine WBC (Auto) (0.0-6.0) /HPF 06/17/18 06/17/18 06/17/18 Range/Units 16:03 18:21 18:38 WBC (4.5-11.0) K/mm3 RBC (3.65-5.03) M/mm3 Hgb (10.1-14.3) gm/dl Hct (30.3-42.9) % MCH (28-32) pg RDW (13.2-15.2) % Lymph % (Auto) (13.4-35.0) % [place] % (Auto) (0.0-7.3) % [place] # (0.0-0.8) K/mm3 Seg Neutrophils % (40.0-70.0) % Seg Neutrophils # (1.8-7.7) K/mm3 PT (12.2-14.9) Sec. INR (0.87-1.13) Potassium (3.6-5.0) mmol/L Chloride (98-107) mmol/L Carbon Dioxide (22-30) mmol/L BUN (7-17) mg/dL Creatinine (0.7-1.2) mg/dL Glucose (65-100) mg/dL Lactic Acid 3.10 H* 2.70 H* (0.7-2.0) mmol/L Calcium (8.4-10.2) mg/dL Albumin (3.9-5) g/dL Urine WBC (Auto) > 182.0 H (0.0-6.0) /HPF 06/18/18 06/18/18 Range/Units 06:01 06:01 WBC 16.8 H (4.5-11.0) K/mm3 RBC (3.65-5.03) M/mm3 Hgb (10.1-14.3) gm/dl Hct (30.3-42.9) % MCH 26 L (28-32) pg RDW 17.1 H (13.2-15.2) % Lymph % (Auto) 7.8 L (13.4-35.0) % [place] % (Auto) 9.1 H (0.0-7.3) % [place] # 1.5 H (0.0-0.8) K/mm3 Seg Neutrophils % 83.0 H (40.0-70.0) % Seg Neutrophils # 13.9 H (1.8-7.7) K/mm3 PT (12.2-14.9) Sec. INR (0.87-1.13) Potassium 2.5 L* D (3.6-5.0) mmol/L Chloride 108.2 H (98-107) mmol/L Carbon Dioxide 19 L (22-30) mmol/L BUN (7-17) mg/dL Creatinine < 0.2 L (0.7-1.2) mg/dL Glucose 108 H (65-100) mg/dL Lactic Acid (0.7-2.0) mmol/L Calcium 7.5 L D (8.4-10.2) mg/dL Albumin (3.9-5) g/dL Urine WBC (Auto) (0.0-6.0) /HPF Diabetes panel 06/17/18 06/18/18 Range/Units 16:03 06:01 Sodium 139 141 (137-145) mmol/L Potassium 3.5 L 2.5 L* D (3.6-5.0) mmol/L Chloride 97.2 L 108.2 H (98-107) mmol/L Carbon Dioxide 24 19 L (22-30) mmol/L BUN 19 H 9 (7-17) mg/dL Creatinine 0.2 L < 0.2 L (0.7-1.2) mg/dL Glucose 132 H 108 H (65-100) mg/dL Calcium 9.3 7.5 L D (8.4-10.2) mg/dL AST 21 (5-40) units/L ALT 12 (7-56) units/L Alkaline Phosphatase 112 (35-129) units/L Total Protein 7.8 (6.3-8.2) g/dL Albumin 3.4 L (3.9-5) g/dL Calcium panel 06/17/18 06/18/18 Range/Units 16:03 06:01 Calcium 9.3 7.5 L D (8.4-10.2) mg/dL Albumin 3.4 L (3.9-5) g/dL Pituitary panel 06/17/18 06/18/18 Range/Units 16:03 06:01 Sodium 139 141 (137-145) mmol/L Potassium 3.5 L 2.5 L* D (3.6-5.0) mmol/L Chloride 97.2 L 108.2 H (98-107) mmol/L Carbon Dioxide 24 19 L (22-30) mmol/L BUN 19 H 9 (7-17) mg/dL Creatinine 0.2 L < 0.2 L (0.7-1.2) mg/dL Glucose 132 H 108 H (65-100) mg/dL Calcium 9.3 7.5 L D (8.4-10.2) mg/dL Adrenal panel 06/17/18 06/18/18 Range/Units 16:03 06:01 Sodium 139 141 (137-145) mmol/L Potassium 3.5 L 2.5 L* D (3.6-5.0) mmol/L Chloride 97.2 L 108.2 H (98-107) mmol/L Carbon Dioxide 24 19 L (22-30) mmol/L BUN 19 H 9 (7-17) mg/dL Creatinine 0.2 L < 0.2 L (0.7-1.2) mg/dL Glucose 132 H 108 H (65-100) mg/dL Calcium 9.3 7.5 L D (8.4-10.2) mg/dL Total Bilirubin 0.20 (0.1-1.2) mg/dL AST 21 (5-40) units/L ALT 12 (7-56) units/L Alkaline Phosphatase 112 (35-129) units/L Total Protein 7.8 (6.3-8.2) g/dL Albumin 3.4 L (3.9-5) g/dL Assessment and Plan - Patient Problems (1) Sacral decubitus ulcer, stage III Current Visit: No Status: Acute Plan to address problem: 1) Off loading - ordered 2) Intense nutritional support 3) Wound care per the Wound Care nurses
[2018-06-18] MEDS: KCL 40 MEQ in NACL 0.45% 1000 ML 1,000 ML IV SCH (22:17)
[2018-06-19] MEDS: KCL 40 MEQ in NACL 0.45% 1000 ML 1,000 ML IV SCH ×2 (04:35→13:51)
[2018-06-19 07:49] LABS: BUN/Creatinine Ratio 30; Blood Urea Nitrogen 6 mg/dL (7-17); Calcium 7.5 mg/dL (8.4-10.2); Hemolysis Index 4
[2018-06-19] MEDS: K-DUR PO SCH ×2 (09:18→21:00)
[2018-06-19] MEDS: LOVENOX SUB-Q SCH (09:19)
[2018-06-19] MEDS: SODIUM CHLORIDE FLUSH SYRINGE 10 ML IV SCH ×2 (09:20→21:01)
[2018-06-19] MEDS: SENOKOT PO SCH ×2 (10:00→21:01)
--- NOTE | 2018-06-19 18:24 | Progress Note ---
Assessment and Plan Assessment and plan: 68-year-old woman with past medical history of pulmonary CVA, and early dementia , presents with fever and dysuria, also complaining of anorexia sepsis secondary to UTI Continue antibiotics, follow up urine cultures Diarrhea highly suspect C diff contact iso, ID consult, send stool studies, start flagyl Dehydration Continue IV fluids Severe hypokalemia Magnesium level within normal limits, with IV and by mouth Polymyositis outpatient rx, continue pain meds Dementia with sundowning restraints as needed, but avoid if possible malnutrition, moderate nutrition consult, add nutritional supplements DVT prophylaxis Chemical History Interval history: c/o generalized body pain, from her Polymyositis, she is having watery diarrhea, multiple episodes Review of systems Constitutional: c/o weakness and weightloss CVS: No chest pain, no orthopnea, no dyspnea on exertion, no pedal edema GI: No abdominal pain, no diarrhea, no vomiting, no constipation Respiratory: No shortness of breath, no wheezing, no coughing Hospitalist Physical - Physical exam Narrative exam: General.: Appears well, no distress, nontoxic, cachectic HEENT: Moist mucous membranes, extraocular muscles intact, no lymphadenopathy Neck: supple Cardiac: S1-S2 heard Lungs: clear to auscultation bilaterally Abdomen: soft , nontender, nondistended, bowel sounds positive Extremities: no edema clubbing or cyanosis Skin: no rash or lesions Neurologic: no gross focal deficits Psych: appropriate behavior, appropriate mood, corporative, judgment intact - Constitutional Vitals: Temp Pulse Resp BP Pulse Ox 98.1 F 103 H 18 136/60 93 06/19/18 16:32 06/19/18 16:32 06/19/18 16:32 06/19/18 16:32 06/19/18 16:32 Results - Labs CBC & Chem 7: 06/18/18 06:01 06/19/18 07:20 Labs: Laboratory Last Values WBC 16.8 K/mm3 (4.5-11.0) H 06/18/18 06:01 RBC 4.19 M/mm3 (3.65-5.03) 06/18/18 06:01 Hgb 11.0 gm/dl (10.1-14.3) D 06/18/18 06:01 Hct 34.9 % (30.3-42.9) D 06/18/18 06:01 MCV 83 fl (79-97) 06/18/18 06:01 MCH 26 pg (28-32) L 06/18/18 06:01 MCHC 32 % (30-34) 06/18/18 06:01 RDW 17.1 % (13.2-15.2) H 06/18/18 06:01 Plt Count 243 K/mm3 (140-440) 06/18/18 06:01 Lymph % (Auto) 7.8 % (13.4-35.0) L 06/18/18 06:01 [place] % (Auto) 9.1 % (0.0-7.3) H 06/18/18 06:01 Eos % (Auto) 0.0 % (0.0-4.3) 06/18/18 06:01 Baso % (Auto) 0.1 % (0.0-1.8) 06/18/18 06:01 Lymph # 1.3 K/mm3 (1.2-5.4) 06/18/18 06:01 [place] # 1.5 K/mm3 (0.0-0.8) H 06/18/18 06:01 Eos # 0.0 K/mm3 (0.0-0.4) 06/18/18 06:01 Baso # 0.0 K/mm3 (0.0-0.1) 06/18/18 06:01 Seg Neutrophils % 83.0 % (40.0-70.0) H 06/18/18 06:01 Seg Neutrophils # 13.9 K/mm3 (1.8-7.7) H 06/18/18 06:01 PT 16.4 Sec. (12.2-14.9) H 06/17/18 16:03 INR 1.25 (0.87-1.13) H 06/17/18 16:03 VBG pH 7.333 (7.320-7.420) 06/17/18 16:03 Sodium 136 mmol/L (137-145) L 06/19/18 07:20 Potassium 3.4 mmol/L (3.6-5.0) L D 06/19/18 07:20 Chloride 105.0 mmol/L (98-107) 06/19/18 07:20 Carbon Dioxide 20 mmol/L (22-30) L 06/19/18 07:20 Anion Gap 14 mmol/L 06/19/18 07:20 BUN 6 mg/dL (7-17) L 06/19/18 07:20 Creatinine < 0.2 mg/dL (0.7-1.2) L 06/19/18 07:20 Estimated GFR > 60 ml/min 06/19/18 07:20 BUN/Creatinine Ratio 30 % 06/19/18 07:20 Glucose 99 mg/dL (65-100) 06/19/18 07:20 POC Glucose 87 (70-105) 06/19/18 10:43 Lactic Acid 2.70 mmol/L (0.7-2.0) H* 06/17/18 18:21 Calcium 7.5 mg/dL (8.4-10.2) L 06/19/18 07:20 Magnesium 1.80 mg/dL (1.7-2.3) 06/18/18 06:01 Total Bilirubin 0.20 mg/dL (0.1-1.2) 06/17/18 16:03 AST 21 units/L (5-40) 06/17/18 16:03 ALT 12 units/L (7-56) 06/17/18 16:03 Alkaline Phosphatase 112 units/L (35-129) 06/17/18 16:03 Total Protein 7.8 g/dL (6.3-8.2) 06/17/18 16:03 Albumin 3.4 g/dL (3.9-5) L 06/17/18 16:03 Albumin/Globulin Ratio 0.8 % 06/17/18 16:03 Urine Color Katharine (Yellow) 06/17/18 18:38 Urine Turbidity Turbid (Clear) 06/17/18 18:38 Urine pH 5.0 (5.0-7.0) 06/17/18 18:38 Ur Specific [place] 1.020 (1.003-1.030) 06/17/18 18:38 Urine Protein 100 mg/dl mg/dL (Negative) 06/17/18 18:38 Urine Glucose (UA) Neg mg/dL (Negative) 06/17/18 18:38 Urine Ketones Tr mg/dL (Negative) 06/17/18 18:38 Urine Blood Sm (Negative) 06/17/18 18:38 Urine Nitrite Pos (Negative) 06/17/18 18:38 Urine Bilirubin Neg (Negative) 06/17/18 18:38 Urine Urobilinogen 2.0 mg/dL (<2.0) 06/17/18 18:38 Ur Leukocyte Esterase Mod (Negative) 06/17/18 18:38 Urine WBC (Auto) > 182.0 /HPF (0.0-6.0) H 06/17/18 18:38 Urine RBC (Auto) 28.0 /HPF (0.0-6.0) 06/17/18 18:38 Urine Bacteria (Auto) 4+ /HPF (Negative) 06/17/18 18:38 Urine Mucus 3+ /HPF 06/17/18 18:38 Urine Yeast (Budding) 3+ /HPF 06/17/18 18:38
[2018-06-19] MEDS: FLAGYL 500 MG/100 ML 500 MG/100 ML BAG IV SCH ×2 (18:47→21:01)
[2018-06-19] MEDS: ATIVAN IV PRN (20:46)
[2018-06-20] MEDS: KCL 40 MEQ in NACL 0.45% 1000 ML 1,000 ML IV SCH ×2 (01:31→13:16)
[2018-06-20] MEDS: FLAGYL 500 MG/100 ML 500 MG/100 ML BAG IV SCH ×3 (05:05→23:30)
[2018-06-20 07:28] LABS: BUN/Creatinine Ratio 25; Blood Urea Nitrogen 5 mg/dL (7-17); Calcium 7.7 mg/dL (8.4-10.2); Hemolysis Index 79
[2018-06-20] MEDS: SENOKOT PO SCH ×3 (09:21→22:30)
[2018-06-20] MEDS: LOVENOX SUB-Q SCH (09:21)
[2018-06-20] MEDS: K-DUR PO SCH (09:21)
[2018-06-20] MEDS: SODIUM CHLORIDE FLUSH SYRINGE 10 ML IV SCH ×2 (09:22→22:00)
[2018-06-20] MEDS ORDERED: LEVAQUIN 750MG/150ML 750 MG/150 ML BAG IV SCH (10:00)
--- NOTE | 2018-06-20 10:08 | Consultation ---
History of Present Illness - Reason for Consult Consult date: 06/20/18 UTI, C.difficile diarrhea Requesting physician: KIMBERLY BELTRAN - History of Present Illness The patient is a 68 year old female with polymyositis, recent CVA, anxiety, early dementia, lives at home with family who was brought to the ER with complaints of not feeling well, not eating and drinking much for 2 days and apparently complaining of pain with urination. She is a poor historian, not oriented to time, place or person, hence history was obtained by chart review. She was noted to be in sepsis with fever, elevated WBC and tachycardia with elevated lactate. UA was suggestive of infection, was empirically started on levofloxacin. Then, was also noted to have diarrhea, with another fever spike upto 102F last night. C.diff toxin was sent and returned positive. Flagyl was also started and ID was consulted. Patient denies any pain, she thinks she is in [place] in a hotel with the year being 1959. Does not appear to be in distress. Review of Systems: Limited due to patient's baseline confusion. Fevers +, diarrhea +. Medications and Allergies Allergies Allergy/AdvReac Type Severity Reaction Status Date / Time codeine Allergy Anaphylaxis Verified 06/17/18 15:21 penicillin Allergy Anaphylaxis Verified 05/26/17 17:25 sulfamethoxazole Allergy Anaphylaxis Verified 05/26/17 17:25 [From Bactrim] trimethoprim [From Bactrim] Allergy Anaphylaxis Verified 05/26/17 17:25 Home Medications Medication Instructions Recorded Confirmed Last Taken Type ALPRAZolam [Xanax TAB] 0.5 mg PO Q8H PRN #14 tablet 04/10/18 06/18/18 Unknown Rx Baclofen [Lioresal] 10 mg PO BID PRN #60 tablet 04/10/18 06/18/18 Unknown Rx Gabapentin [Neurontin] 300 mg PO Q8HR #30 capsule 04/10/18 06/18/18 Unknown Rx Sennosides Tab [Senokot] 8.6 mg PO Q12H PRN #20 tablet 04/10/18 06/18/18 Unknown Rx traMADol [Ultram 50 MG tab] 50 mg PO TID PRN #14 tablet 04/10/18 06/18/18 Unknown Rx Acetaminophen [Tylenol Arthritis] 650 mg PO Q6HR PRN #30 tablet.er 05/29/18 Unknown Rx Active Meds: Active Medications Acetaminophen (Tylenol) 650 mg PO Q4H PRN PRN Reason: Pain MILD(1-3)/Fever >100.5/RDZ Enoxaparin Sodium (Lovenox) 40 mg SUB-Q QDAY [facility] Last Admin: 06/20/18 09:21 Dose: 40 mg Potassium Chloride 40 meq/ (Sodium Chloride) 1,020 mls @ 125 mls/hr IV DIRECT RE Last Admin: 06/20/18 01:31 Dose: 125 mls/hr Levofloxacin/Dextrose (Levaquin 750mg/150ml) 750 mg in 150 mls @ 100 mls/hr IV Q48HR [facility]; Protocol Last Admin: 06/20/18 09:22 Dose: 100 mls/hr Metronidazole (Flagyl 500 Mg/100 Ml) 500 mg in 100 mls @ 100 mls/hr IV Q8HR [facility] ; Protocol Last Admin: 06/20/18 05:05 Dose: 100 mls/hr Lorazepam (Ativan) 1 mg IV Q4H PRN PRN Reason: Anxiety Last Admin: 06/19/18 20:46 Dose: 1 mg Magnesium Hydroxide (Milk Of Magnesia) 30 ml PO Q4H PRN PRN Reason: Constipation Metoclopramide HCl (Reglan) 5 mg IV Q6H PRN PRN Reason: Nausea And Vomiting Ondansetron HCl (Zofran) 4 mg IV Q8H PRN PRN Reason: Nausea And Vomiting Oxycodone/Acetaminophen (Percocet 5/325) 1 tab PO Q6H PRN PRN Reason: Pain, Moderate (4-6) Last Admin: 06/18/18 13:37 Dose: 1 tab Potassium Chloride (K-Dur) 40 meq PO BID [facility] Last Admin: 06/20/18 09:21 Dose: 40 meq Senna (Senokot) 8.6 mg PO Q12HR [facility] Last Admin: 06/20/18 09:52 Dose: Not Given Sodium Chloride (Sodium Chloride Flush Syringe 10 Ml) 10 ml IV BID [facility] Last Admin: 06/20/18 09:22 Dose: 10 ml Sodium Chloride (Sodium Chloride Flush Syringe 10 Ml) 10 ml IV PRN PRN PRN Reason: LINE FLUSH Physical Examination - Physical Exam Narrative exam: Physical Exam: Constitutional: Alert, cooperative. No acute distress Head, Ears, Nose: Normocephalic, atraumatic. External ears, nose normal Eyes: Conjunctivae/corneas clear. No icterus. No ptosis. Neck: Supple, no meningeal signs Oral: no ulcers, no thrush Cardiovascular: S1, S2 normal. Respiratory: Good air entry, clear to auscultation bilaterally GI: Soft, mild diffuse tenderness; bowel sounds present. No peritoneal signs Musculoskeletal: No pedal edema, no cyanosis. Skin: No rash or abscess. Sacral decubitus ulcer +, 5 cm without drainage, does not appear to be secondarily infected. Hem/Lymphatic: No palpable cervical or supraclavicular nodes. No lymphangitis Psych: Mood ok. Affect flat. Neurological: Awake, alert, not oriented. - Constitutional Vitals: Vital Signs Temp Pulse Resp BP Pulse Ox 97.6 F 109 H 18 123/76 100 06/20/18 07:48 06/20/18 07:48 06/20/18 07:48 06/20/18 07:48 06/20/18 07:48 Temperature -Last 24 Hours Temperature 97.6 F Temperature 98.2 F Temperature 98.4 F Temperature 102.3 F Temperature 98.1 F Results - Labs CBC & Chem 7: 06/18/18 06:01 06/20/18 06:30 Labs: Abnormal lab results 06/19/18 06/20/18 Range/Units 19:00 06:30 Carbon Dioxide 19 L (22-30) mmol/L BUN 5 L (7-17) mg/dL Creatinine < 0.2 L (0.7-1.2) mg/dL Calcium 7.7 L (8.4-10.2) mg/dL C. difficile Toxin A&B Positive A (Negative) Assessment and Plan Cultures: Urine cultures growing E.coli, R to Cipro and Levofloxacin A/P: 68/F with polymyositis, recent CVA, anxiety, dementia admitted with: #1 C. difficile diarrhea, severe: Patient with fever, leukocytosis and diarrhea. Has abdominal tenderness but bowel sounds are present. Clinically, no concern for a toxic megacolon or ileus, however, will get a KUB. We will start patient on oral vancomycin 125 mg 4 times a day. Will minimize exposure to others systemic antimicrobials. DC levofloxacin, DC Flagyl. #2 UTI: UA showed high WBCs on admission, urine culture has grown Escherichia coli that is resistant to fluoroquinolones. We'll discontinue levofloxacin. Start IV aztreonam for 3 days. No clinical evidence of pyelonephritis or bacteremia. #3 Sepsis, present on admission, likely secondary to above: UTI and now C.difficile diarrhea. #4 Penicillin allergy: Patient has listed anaphylaxis as allergy to penicillin. Hence will avoid beta-lactam's since patient is not a reliable historian at this time. Recs: Discontinued Flagyl Discontinued levofloxacin Started IV aztreonam 1 g every 8 hours Started oral vancomycin 125 mg 4 times a day Monitor WBC, lactic acidosis Ordered KUB to evaluate for ileus Contact isolation Plan discussed with Dr. Beltran. Will follow. Please call with questions. MD Reese [facility] C: [phone] O: [phone] F: [phone]
[2018-06-20] MEDS: PERCOCET 5/325 PO PRN (10:17)
[2018-06-20] MEDS ORDERED: VANCOMYCIN PO PO SCH (12:00)
--- NOTE | 2018-06-20 12:13 | XRay Report ---
AP ABDOMEN: HISTORY: C. difficile, evaluate for ileus. There is moderate gas throughout the GI tract which could represent an ileus. No obvious mass or large free air or pathologic calcifications. The lung bases are not included. The bony structures are demineralized. IMPRESSION: Probable ileus.
[2018-06-20] MEDS: AZACTAM/NS 1 GM/50 ML 1 GM/50 ML VIAL IV SCH ×2 (15:30→22:30)
[2018-06-20] MEDS: VANCOMYCIN PO PO SCH ×3 (15:40→23:58)
--- NOTE | 2018-06-20 17:03 | Progress Note ---
Assessment and Plan Assessment and plan: 68-year-old woman with past medical history of pulmonary CVA, and early dementia , presents with fever and dysuria, also complaining of anorexia sepsis secondary to UTI Continue antibiotics, follow up urine cultures c diff colitis -ID input appreciated, oral vanco and IV flagyl -has ileus, bowel rest, NPO, correct electrolytes Ileus NPO, daily KUB Dehydration Continue IV fluids Severe hypokalemia Magnesium level within normal limits, now corrected Polymyositis outpatient rx, continue pain meds Dementia with sundowning restraints as needed, but avoid if possible malnutrition, moderate nutrition consult, add nutritional supplements Dementia with sundowning -add haldol prn DVT prophylaxis Chemical History Interval history: c/o generalized body pain, from her Polymyositis, she is having watery diarrhea, multiple episodes -she is having sundowning and episodes of agitation and combativeness -she confused and screaming Hospitalist Physical - Physical exam Narrative exam: General.: Appears well, no distress, nontoxic, cachectic HEENT: Moist mucous membranes, extraocular muscles intact, no lymphadenopathy Neck: supple Cardiac: S1-S2 heard Lungs: clear to auscultation bilaterally Abdomen: soft , nontender, nondistended, bowel sounds positive Extremities: no edema clubbing or cyanosis Skin: no rash or lesions Neurologic: no gross focal deficits Psych: confused, agitated - Constitutional Vitals: Temp Pulse Resp BP Pulse Ox 97.9 F 128 H 20 96/58 97 06/20/18 13:06 06/20/18 13:06 06/20/18 13:06 06/20/18 13:06 06/20/18 13:06 Results - Labs CBC & Chem 7: 06/18/18 06:01 06/20/18 06:30 Labs: Laboratory Last Values WBC 16.8 K/mm3 (4.5-11.0) H 06/18/18 06:01 RBC 4.19 M/mm3 (3.65-5.03) 06/18/18 06:01 Hgb 11.0 gm/dl (10.1-14.3) D 06/18/18 06:01 Hct 34.9 % (30.3-42.9) D 06/18/18 06:01 MCV 83 fl (79-97) 06/18/18 06:01 MCH 26 pg (28-32) L 06/18/18 06:01 MCHC 32 % (30-34) 06/18/18 06:01 RDW 17.1 % (13.2-15.2) H 06/18/18 06:01 Plt Count 243 K/mm3 (140-440) 06/18/18 06:01 Lymph % (Auto) 7.8 % (13.4-35.0) L 06/18/18 06:01 [place] % (Auto) 9.1 % (0.0-7.3) H 06/18/18 06:01 Eos % (Auto) 0.0 % (0.0-4.3) 06/18/18 06:01 Baso % (Auto) 0.1 % (0.0-1.8) 06/18/18 06:01 Lymph # 1.3 K/mm3 (1.2-5.4) 06/18/18 06:01 [place] # 1.5 K/mm3 (0.0-0.8) H 06/18/18 06:01 Eos # 0.0 K/mm3 (0.0-0.4) 06/18/18 06:01 Baso # 0.0 K/mm3 (0.0-0.1) 06/18/18 06:01 Seg Neutrophils % 83.0 % (40.0-70.0) H 06/18/18 06:01 Seg Neutrophils # 13.9 K/mm3 (1.8-7.7) H 06/18/18 06:01 PT 16.4 Sec. (12.2-14.9) H 06/17/18 16:03 INR 1.25 (0.87-1.13) H 06/17/18 16:03 VBG pH 7.333 (7.320-7.420) 06/17/18 16:03 Sodium 139 mmol/L (137-145) 06/20/18 06:30 Potassium 3.9 mmol/L (3.6-5.0) 06/20/18 06:30 Chloride 105.9 mmol/L (98-107) 06/20/18 06:30 Carbon Dioxide 19 mmol/L (22-30) L 06/20/18 06:30 Anion Gap 18 mmol/L 06/20/18 06:30 BUN 5 mg/dL (7-17) L 06/20/18 06:30 Creatinine < 0.2 mg/dL (0.7-1.2) L 06/20/18 06:30 Estimated GFR > 60 ml/min 06/20/18 06:30 BUN/Creatinine Ratio 25 % 06/20/18 06:30 Glucose 70 mg/dL (65-100) 06/20/18 06:30 POC Glucose 87 (70-105) 06/19/18 10:43 Lactic Acid 2.70 mmol/L (0.7-2.0) H* 06/17/18 18:21 Calcium 7.7 mg/dL (8.4-10.2) L 06/20/18 06:30 Magnesium 1.80 mg/dL (1.7-2.3) 06/18/18 06:01 Total Bilirubin 0.20 mg/dL (0.1-1.2) 06/17/18 16:03 AST 21 units/L (5-40) 06/17/18 16:03 ALT 12 units/L (7-56) 06/17/18 16:03 Alkaline Phosphatase 112 units/L (35-129) 06/17/18 16:03 Total Protein 7.8 g/dL (6.3-8.2) 06/17/18 16:03 Albumin 3.4 g/dL (3.9-5) L 06/17/18 16:03 Albumin/Globulin Ratio 0.8 % 06/17/18 16:03 Urine Color Katharine (Yellow) 06/17/18 18:38 Urine Turbidity Turbid (Clear) 06/17/18 18:38 Urine pH 5.0 (5.0-7.0) 06/17/18 18:38 Ur Specific [place] 1.020 (1.003-1.030) 06/17/18 18:38 Urine Protein 100 mg/dl mg/dL (Negative) 06/17/18 18:38 Urine Glucose (UA) Neg mg/dL (Negative) 06/17/18 18:38 Urine Ketones Tr mg/dL (Negative) 06/17/18 18:38 Urine Blood Sm (Negative) 06/17/18 18:38 Urine Nitrite Pos (Negative) 06/17/18 18:38 Urine Bilirubin Neg (Negative) 06/17/18 18:38 Urine Urobilinogen 2.0 mg/dL (<2.0) 06/17/18 18:38 Ur Leukocyte Esterase Mod (Negative) 06/17/18 18:38 Urine WBC (Auto) > 182.0 /HPF (0.0-6.0) H 06/17/18 18:38 Urine RBC (Auto) 28.0 /HPF (0.0-6.0) 06/17/18 18:38 Urine Bacteria (Auto) 4+ /HPF (Negative) 06/17/18 18:38 Urine Mucus 3+ /HPF 06/17/18 18:38 Urine Yeast (Budding) 3+ /HPF 06/17/18 18:38 C. difficile Toxin A&B Positive (Negative) A 06/19/18 19:00
[2018-06-20] MEDS: ATIVAN IV PRN (17:33)
[2018-06-20] MEDS: NACL 0.45% 1000 ML 1,000 ML IV SCH (22:30)
[2018-06-21] MEDS: HALDOL IM PRN ×3 (00:39→23:56)
[2018-06-21] MEDS: TYLENOL PO PRN ×2 (00:41→15:58)
[2018-06-21 06:20] LABS: BUN/Creatinine Ratio 25; Blood Urea Nitrogen 5 mg/dL (7-17); Calcium 7.8 mg/dL (8.4-10.2); Hemolysis Index 73
[2018-06-21] MEDS: FLAGYL 500 MG/100 ML 500 MG/100 ML BAG IV SCH ×3 (07:30→22:21)
[2018-06-21] MEDS: VANCOMYCIN PO PO SCH ×4 (08:16→23:53)
--- NOTE | 2018-06-21 08:29 | XRay Report ---
AP ABDOMEN: HISTORY: Ileus. Gas-filled loops of bowel throughout the abdomen have not significantly changed since 06/20/18 at 1139 hrs. The overall pattern remains most consistent with an ileus. No large free air or space occupying mass. IMPRESSION: No change.
[2018-06-21] MEDS: HALDOL PO SCH ×2 (08:51→12:01)
--- NOTE | 2018-06-21 10:33 | Progress Note ---
Assessment and Plan Assessment and plan: 68-year-old woman with past medical history of pulmonary CVA, and early dementia , presents with fever and dysuria, also complaining of anorexia sepsis secondary to UTI Continue antibiotics, urine cx reviewed, E coli, R to quinolones c diff colitis -ID input appreciated, oral vanco and IV flagyl -has ileus, bowel rest, NPO, correct electrolytes Ileus NPO, daily KUB Dehydration Continue IV fluids Severe hypokalemia Magnesium level within normal limits, now corrected Polymyositis outpatient rx, continue pain meds Dementia with sundowning restraints as needed, but avoid if possible malnutrition, moderate nutrition consult, add nutritional supplements Dementia with sundowning and behavioral issues -add haldol prn DVT prophylaxis Chemical History Interval history: c/o generalized body pain, from her Polymyositis, she is having watery diarrhea, multiple episodes, decreased in frequency -she is having sundowning and episodes of agitation and combativeness -she confused and screaming Hospitalist Physical - Physical exam Narrative exam: General.: Appears well, no distress, nontoxic, cachectic HEENT: Moist mucous membranes, extraocular muscles intact, no lymphadenopathy Neck: supple Cardiac: S1-S2 heard Lungs: clear to auscultation bilaterally Abdomen: soft , nontender, nondistended, bowel sounds positive Extremities: no edema clubbing or cyanosis Skin: no rash or lesions Neurologic: no gross focal deficits Psych: confused, - Constitutional Vitals: Temp Pulse Resp BP Pulse Ox 99.6 F 116 H 21 128/79 98 06/21/18 00:16 06/21/18 00:16 06/21/18 04:24 06/21/18 04:24 06/21/18 00:16 Results - Labs CBC & Chem 7: 06/21/18 13:32 06/21/18 05:05 Labs: Laboratory Last Values WBC 16.8 K/mm3 (4.5-11.0) H 06/18/18 06:01 RBC 4.19 M/mm3 (3.65-5.03) 06/18/18 06:01 Hgb 11.0 gm/dl (10.1-14.3) D 06/18/18 06:01 Hct 34.9 % (30.3-42.9) D 06/18/18 06:01 MCV 83 fl (79-97) 06/18/18 06:01 MCH 26 pg (28-32) L 06/18/18 06:01 MCHC 32 % (30-34) 06/18/18 06:01 RDW 17.1 % (13.2-15.2) H 06/18/18 06:01 Plt Count 243 K/mm3 (140-440) 06/18/18 06:01 Lymph % (Auto) 7.8 % (13.4-35.0) L 06/18/18 06:01 [place] % (Auto) 9.1 % (0.0-7.3) H 06/18/18 06:01 Eos % (Auto) 0.0 % (0.0-4.3) 06/18/18 06:01 Baso % (Auto) 0.1 % (0.0-1.8) 06/18/18 06:01 Lymph # 1.3 K/mm3 (1.2-5.4) 06/18/18 06:01 [place] # 1.5 K/mm3 (0.0-0.8) H 06/18/18 06:01 Eos # 0.0 K/mm3 (0.0-0.4) 06/18/18 06:01 Baso # 0.0 K/mm3 (0.0-0.1) 06/18/18 06:01 Seg Neutrophils % 83.0 % (40.0-70.0) H 06/18/18 06:01 Seg Neutrophils # 13.9 K/mm3 (1.8-7.7) H 06/18/18 06:01 PT 16.4 Sec. (12.2-14.9) H 06/17/18 16:03 INR 1.25 (0.87-1.13) H 06/17/18 16:03 VBG pH 7.333 (7.320-7.420) 06/17/18 16:03 Sodium 131 mmol/L (137-145) L D 06/21/18 05:05 Potassium 3.9 mmol/L (3.6-5.0) 06/21/18 05:05 Chloride 102.9 mmol/L (98-107) 06/21/18 05:05 Carbon Dioxide 18 mmol/L (22-30) L 06/21/18 05:05 Anion Gap 14 mmol/L 06/21/18 05:05 BUN 5 mg/dL (7-17) L 06/21/18 05:05 Creatinine < 0.2 mg/dL (0.7-1.2) L 06/21/18 05:05 Estimated GFR > 60 ml/min 06/21/18 05:05 BUN/Creatinine Ratio 25 % 06/21/18 05:05 Glucose 97 mg/dL (65-100) 06/21/18 05:05 POC Glucose 87 (70-105) 06/19/18 10:43 Lactic Acid 2.70 mmol/L (0.7-2.0) H* 06/17/18 18:21 Calcium 7.8 mg/dL (8.4-10.2) L 06/21/18 05:05 Magnesium 1.80 mg/dL (1.7-2.3) 06/18/18 06:01 Total Bilirubin 0.20 mg/dL (0.1-1.2) 06/17/18 16:03 AST 21 units/L (5-40) 06/17/18 16:03 ALT 12 units/L (7-56) 06/17/18 16:03 Alkaline Phosphatase 112 units/L (35-129) 06/17/18 16:03 Total Protein 7.8 g/dL (6.3-8.2) 06/17/18 16:03 Albumin 3.4 g/dL (3.9-5) L 06/17/18 16:03 Albumin/Globulin Ratio 0.8 % 06/17/18 16:03 Urine Color Katharine (Yellow) 06/17/18 18:38 Urine Turbidity Turbid (Clear) 06/17/18 18:38 Urine pH 5.0 (5.0-7.0) 06/17/18 18:38 Ur Specific [place] 1.020 (1.003-1.030) 06/17/18 18:38 Urine Protein 100 mg/dl mg/dL (Negative) 06/17/18 18:38 Urine Glucose (UA) Neg mg/dL (Negative) 06/17/18 18:38 Urine Ketones Tr mg/dL (Negative) 06/17/18 18:38 Urine Blood Sm (Negative) 06/17/18 18:38 Urine Nitrite Pos (Negative) 06/17/18 18:38 Urine Bilirubin Neg (Negative) 06/17/18 18:38 Urine Urobilinogen 2.0 mg/dL (<2.0) 06/17/18 18:38 Ur Leukocyte Esterase Mod (Negative) 06/17/18 18:38 Urine WBC (Auto) > 182.0 /HPF (0.0-6.0) H 06/17/18 18:38 Urine RBC (Auto) 28.0 /HPF (0.0-6.0) 06/17/18 18:38 Urine Bacteria (Auto) 4+ /HPF (Negative) 06/17/18 18:38 Urine Mucus 3+ /HPF 06/17/18 18:38 Urine Yeast (Budding) 3+ /HPF 06/17/18 18:38 C. difficile Toxin A&B Positive (Negative) A 06/19/18 19:00
[2018-06-21] MEDS: AZACTAM/NS 1 GM/50 ML 1 GM/50 ML VIAL IV SCH ×3 (11:59→22:21)
[2018-06-21] MEDS: NACL 0.45% 1000 ML 1,000 ML IV SCH ×2 (11:59→22:20)
[2018-06-21] MEDS: K-DUR PO SCH (12:00)
[2018-06-21] MEDS: LOVENOX SUB-Q SCH (12:00)
[2018-06-21] MEDS: PERCOCET 5/325 PO PRN (12:01)
[2018-06-21] MEDS: SENOKOT PO SCH ×2 (12:01→22:22)
[2018-06-21] MEDS: SODIUM CHLORIDE FLUSH SYRINGE 10 ML IV SCH ×2 (12:16→22:23)
--- NOTE | 2018-06-21 12:18 | Progress Note ---
Assessment and Plan Cultures: Urine cultures growing E.coli, R to Cipro and Levofloxacin A/P: 68/F with polymyositis, recent CVA, anxiety, dementia admitted with: #1 C. difficile diarrhea, severe with ileus: Continue IV Flagyl + PO Vancomycin 250 mg qid. Abdomen appears slightly distended today, will order lactate and stat CBC for follow up. Continue close monitoring, serial abdominal exams, KUB daily. If clinically worse, may have to get Gen. Surg consult for colectomy. #2 UTI: UA showed high WBCs on admission, urine culture has grown Escherichia coli that is resistant to fluoroquinolones. continue IV aztreonam for 3 days, minimize exposure to other antimicrobials. No clinical evidence of pyelonephritis or bacteremia. #3 Sepsis, present on admission, likely secondary to above: UTI and now C.difficile diarrhea. #4 Penicillin allergy: Patient has listed anaphylaxis as allergy to penicillin. Hence will avoid beta-lactam's since patient is not a reliable historian at this time. Recs: continue IV aztreonam 1 g every 8 hours D2 of 3 continue oral vancomycin 250 mg 4 times a day + IV Flagyl 500 mg q8 hrs stat WBC, lactic acid ordered Continue close monitoring, serial abdominal exams, KUB daily. If clinically worse, may have to get Gen. Surg consult for colectomy eval Contact isolation Plan discussed with Dr. Beltran. Will follow. Please call with questions. Marino Choudhury MD [facility] C: [phone] O: [phone] F: [phone] Subjective Date of service: 06/21/18 Principal diagnosis: C.difficile colitis Interval history: Fever +. Patient complaining of abdominal pain. Confused at baseline. Has rectal tube with watery diarrhea, discussed with RN. Objective - Exam Narrative Exam: Physical Exam: Constitutional: Alert, cooperative. No acute distress Head, Ears, Nose: Normocephalic, atraumatic. External ears, nose normal Eyes: Conjunctivae/corneas clear. No icterus. No ptosis. Neck: Supple, no meningeal signs Oral: no ulcers, no thrush Cardiovascular: S1, S2 normal. Respiratory: Good air entry, clear to auscultation bilaterally GI: appears distended, mild diffuse tenderness; bowel sounds hypoactive No peritoneal signs Musculoskeletal: No pedal edema, no cyanosis. Skin: No rash or abscess. Sacral decubitus ulcer +, 5 cm without drainage, does not appear to be secondarily infected. Hem/Lymphatic: No palpable cervical or supraclavicular nodes. No lymphangitis Psych: Mood ok. Affect flat. Neurological: Awake, alert, not oriented. - Constitutional Vitals: Vital Signs Temp Pulse Resp BP Pulse Ox 99.6 F 116 H 21 128/79 98 06/21/18 00:16 06/21/18 00:16 06/21/18 04:24 06/21/18 04:24 06/21/18 00:16 Temperature -Last 24 Hours Temperature 99.6 F Temperature 98.2 F Temperature 97.4 F Temperature 97.9 F - Labs CBC & Chem 7: 06/18/18 06:01 06/21/18 05:05 Labs: Abnormal lab results 06/21/18 Range/Units 05:05 Sodium 131 L D (137-145) mmol/L Carbon Dioxide 18 L (22-30) mmol/L BUN 5 L (7-17) mg/dL Creatinine < 0.2 L (0.7-1.2) mg/dL Calcium 7.8 L (8.4-10.2) mg/dL
[2018-06-21 13:59] LABS: Basophils % (Auto) 0.2 % (0.0-1.8); Eosinophils % (Auto) 0.3 % (0.0-4.3); Hematocrit 38.5 % (30.3-42.9); Hemoglobin 12.6 gm/dl (10.1-14.3); Lymphocytes # (Auto) 2.1 K/mm3 (1.2-5.4); Lymphocytes % (Auto) 16.8 % (13.4-35.0); Mean Corpuscular HGB Conc 33 % (30-34); Mean Corpuscular Hemoglobin 26 pg (28-32); Mean Corpuscular Volume 81 fl (79-97); Monocytes # (Auto) 0.6 K/mm3 (0.0-0.8); Monocytes % (Auto) 4.8 % (0.0-7.3); Platelet Count 267 K/mm3 (140-440); Red Blood Count 4.78 M/mm3 (3.65-5.03); Red Cell Distribution Width 17.3 % (13.2-15.2)
--- NOTE | 2018-06-21 17:06 | XRay Report ---
FINAL REPORT EXAM: XR ABDOMEN 1V AP HISTORY: ileus follow up. Severe C.diff TECHNIQUE: KUB view(s) of abdomen. PRIORS: None available. FINDINGS: Nonspecific bowel gas pattern, including gastric distention and multiple loops of gas-filled, dilated bowel filling the majority of abdomen. No apparent pneumoperitoneum. No abnormal calcifications. Osseous structures grossly unremarkable. IMPRESSION: 1. Nonspecific bowel gas pattern, which may represent adynamic ileus. Mechanical small bowel obstruction not completely excluded, and followup may be warranted.
[2018-06-21] MEDS: DESYREL PO SCH (22:22)
[2018-06-22] MEDS: VANCOMYCIN PO PO SCH ×3 (05:22→17:51)
[2018-06-22] MEDS: AZACTAM/NS 1 GM/50 ML 1 GM/50 ML VIAL IV SCH ×3 (05:23→21:19)
[2018-06-22] MEDS: FLAGYL 500 MG/100 ML 500 MG/100 ML BAG IV SCH ×3 (05:23→21:19)
[2018-06-22 05:50] LABS: BUN/Creatinine Ratio 20; Blood Urea Nitrogen 4 mg/dL (7-17); Calcium 7.6 mg/dL (8.4-10.2); Hemolysis Index 6
--- NOTE | 2018-06-22 08:43 | XRay Report ---
FINAL REPORT EXAM: XR ABDOMEN 1V AP HISTORY: ileus TECHNIQUE: Supine abdomen PRIORS: 06/21/2018 FINDINGS: There is worsened bowel dilatation. There is worsened gaseous distention of what could be stomach or colon. Findings could be worsened bowel obstruction versus adynamic ileus.. IMPRESSION: Worsened bowel dilatation. Worsening gaseous distention of stomach versus colon. This could represent a bowel obstruction versus an adynamic ileus.
[2018-06-22] MEDS: LOVENOX SUB-Q SCH (09:16)
[2018-06-22] MEDS: K-DUR PO SCH (09:17)
[2018-06-22] MEDS: SENOKOT PO SCH ×2 (09:18→21:21)
[2018-06-22] MEDS: PERCOCET 5/325 PO PRN (09:18)
[2018-06-22] MEDS: SODIUM CHLORIDE FLUSH SYRINGE 10 ML IV SCH ×2 (09:19→21:21)
[2018-06-22] MEDS: NACL 0.45% 1000 ML 1,000 ML IV SCH ×2 (11:46→21:23)
--- NOTE | 2018-06-22 12:26 | Progress Note ---
Assessment and Plan Assessment and plan: 68-year-old woman with past medical history of pulmonary CVA, and early dementia , presents with fever and dysuria, also complaining of anorexia sepsis secondary to UTI Continue antibiotics, urine cx reviewed, E coli, R to quinolones c diff colitis -ID input appreciated, oral vanco and IV flagyl -has ileus, bowel rest, NPO, correct electrolytes Ileus NPO, daily KUB consulted GI and Gen Sx Dehydration Continue IV fluids Severe hypokalemia Magnesium level within normal limits, now corrected Polymyositis outpatient rx, continue pain meds Dementia with sundowning restraints as needed, but avoid if possible malnutrition, moderate nutrition consult, add nutritional supplements Dementia with sundowning and behavioral issues -cont haldol prn DVT prophylaxis Chemical History Interval history: c/o generalized body pain, from her Polymyositis, she is having watery diarrhea, multiple episodes, decreased in frequency -she is having sundowning and episodes of agitation and combativeness -she remians confused Hospitalist Physical - Physical exam Narrative exam: General.: Appears well, no distress, nontoxic, cachectic HEENT: Moist mucous membranes, extraocular muscles intact, no lymphadenopathy Neck: supple Cardiac: S1-S2 heard Lungs: clear to auscultation bilaterally Abdomen: soft , nontender, nondistended, bowel sounds positive Extremities: no edema clubbing or cyanosis Skin: no rash or lesions Neurologic: no gross focal deficits Psych: confused, - Constitutional Vitals: Temp Pulse Resp BP Pulse Ox 97.4 F L 95 H 20 102/60 97 06/22/18 08:06 06/22/18 08:06 06/22/18 10:00 06/22/18 08:06 06/22/18 09:06 Results - Labs CBC & Chem 7: 06/21/18 13:32 06/23/18 15:45 Labs: Laboratory Last Values WBC 12.6 K/mm3 (4.5-11.0) H 06/21/18 13:32 RBC 4.78 M/mm3 (3.65-5.03) 06/21/18 13:32 Hgb 12.6 gm/dl (10.1-14.3) 06/21/18 13:32 Hct 38.5 % (30.3-42.9) 06/21/18 13:32 MCV 81 fl (79-97) 06/21/18 13:32 MCH 26 pg (28-32) L 06/21/18 13:32 MCHC 33 % (30-34) 06/21/18 13:32 RDW 17.3 % (13.2-15.2) H 06/21/18 13:32 Plt Count 267 K/mm3 (140-440) 06/21/18 13:32 Lymph % (Auto) 16.8 % (13.4-35.0) 06/21/18 13:32 [place] % (Auto) 4.8 % (0.0-7.3) 06/21/18 13:32 Eos % (Auto) 0.3 % (0.0-4.3) 06/21/18 13:32 Baso % (Auto) 0.2 % (0.0-1.8) 06/21/18 13:32 Lymph # 2.1 K/mm3 (1.2-5.4) 06/21/18 13:32 [place] # 0.6 K/mm3 (0.0-0.8) 06/21/18 13:32 Eos # 0.0 K/mm3 (0.0-0.4) 06/21/18 13:32 Baso # 0.0 K/mm3 (0.0-0.1) 06/21/18 13:32 Seg Neutrophils % 77.9 % (40.0-70.0) H 06/21/18 13:32 Seg Neutrophils # 9.8 K/mm3 (1.8-7.7) H 06/21/18 13:32 PT 16.4 Sec. (12.2-14.9) H 06/17/18 16:03 INR 1.25 (0.87-1.13) H 06/17/18 16:03 VBG pH 7.333 (7.320-7.420) 06/17/18 16:03 Sodium 131 mmol/L (137-145) L 06/22/18 04:34 Potassium 3.3 mmol/L (3.6-5.0) L 06/22/18 04:34 Chloride 100.7 mmol/L (98-107) 06/22/18 04:34 Carbon Dioxide 19 mmol/L (22-30) L 06/22/18 04:34 Anion Gap 15 mmol/L 06/22/18 04:34 BUN 4 mg/dL (7-17) L 06/22/18 04:34 Creatinine < 0.2 mg/dL (0.7-1.2) L 06/22/18 04:34 Estimated GFR > 60 ml/min 06/22/18 04:34 BUN/Creatinine Ratio 20 % 06/22/18 04:34 Glucose 99 mg/dL (65-100) 06/22/18 04:34 POC Glucose 87 (70-105) 06/19/18 10:43 Lactic Acid 1.60 mmol/L (0.7-2.0) 06/21/18 13:32 Calcium 7.6 mg/dL (8.4-10.2) L 06/22/18 04:34 Magnesium 1.80 mg/dL (1.7-2.3) 06/18/18 06:01 Total Bilirubin 0.20 mg/dL (0.1-1.2) 06/17/18 16:03 AST 21 units/L (5-40) 06/17/18 16:03 ALT 12 units/L (7-56) 06/17/18 16:03 Alkaline Phosphatase 112 units/L (35-129) 06/17/18 16:03 Total Protein 7.8 g/dL (6.3-8.2) 06/17/18 16:03 Albumin 3.4 g/dL (3.9-5) L 06/17/18 16:03 Albumin/Globulin Ratio 0.8 % 06/17/18 16:03 Urine Color Katharine (Yellow) 06/17/18 18:38 Urine Turbidity Turbid (Clear) 06/17/18 18:38 Urine pH 5.0 (5.0-7.0) 06/17/18 18:38 Ur Specific [place] 1.020 (1.003-1.030) 06/17/18 18:38 Urine Protein 100 mg/dl mg/dL (Negative) 06/17/18 18:38 Urine Glucose (UA) Neg mg/dL (Negative) 06/17/18 18:38 Urine Ketones Tr mg/dL (Negative) 06/17/18 18:38 Urine Blood Sm (Negative) 06/17/18 18:38 Urine Nitrite Pos (Negative) 10/15/18 18:38 Urine Bilirubin Neg (Negative) 06/17/18 18:38 Urine Urobilinogen 2.0 mg/dL (<2.0) 06/17/18 18:38 Ur Leukocyte Esterase Mod (Negative) 06/17/18 18:38 Urine WBC (Auto) > 182.0 /HPF (0.0-6.0) H 06/17/18 18:38 Urine RBC (Auto) 28.0 /HPF (0.0-6.0) 06/17/18 18:38 Urine Bacteria (Auto) 4+ /HPF (Negative) 06/17/18 18:38 Urine Mucus 3+ /HPF 06/17/18 18:38 Urine Yeast (Budding) 3+ /HPF 06/17/18 18:38 C. difficile Toxin A&B Positive (Negative) A 06/19/18 19:00
[2018-06-22] MEDS ORDERED: KCL 40 MEQ in NACL 0.45% 500 ML IV SCH (12:30)
--- NOTE | 2018-06-22 12:59 | XRay Report ---
FINAL REPORT EXAM: XR ABDOMEN 1V AP HISTORY: ileus follow up. Severe C.diff TECHNIQUE: Supine abdomen PRIORS: 06/22/2018 at 12:14. FINDINGS: Again seen is gaseous distention of bowel and colon. There is mild improvement from the previous. Appearance could be ileus. Obstruction not entirely excluded. IMPRESSION: Mildly improved but persistent distension/dilatation of bowel and colon. This could be ileus although obstruction not excluded.
[2018-06-22] MEDS: KCL 10MEQ/100ML 10 MEQ/100 ML BAG IV SCH ×4 (15:06→18:20)
[2018-06-22] MEDS: HALDOL IM PRN (21:20)
[2018-06-22] MEDS: DESYREL PO SCH (21:21)
[2018-06-23] MEDS: VANCOMYCIN PO PO SCH ×5 (00:44→22:41)
[2018-06-23] MEDS: NACL 0.45% 1000 ML 1,000 ML IV SCH (05:19)
[2018-06-23] MEDS: FLAGYL 500 MG/100 ML 500 MG/100 ML BAG IV SCH ×3 (05:19→22:42)
[2018-06-23] MEDS: AZACTAM/NS 1 GM/50 ML 1 GM/50 ML VIAL IV SCH (05:19)
[2018-06-23] MEDS: LOVENOX SUB-Q SCH (10:33)
[2018-06-23] MEDS: SODIUM CHLORIDE FLUSH SYRINGE 10 ML IV SCH ×2 (10:34→22:41)
[2018-06-23] MEDS: SENOKOT PO SCH ×2 (10:35→22:41)
[2018-06-23] MEDS: K-DUR PO SCH (10:35)
--- NOTE | 2018-06-23 10:54 | Progress Note ---
Assessment and Plan Assessment and plan: 68-year-old woman with past medical history of pulmonary CVA, and early dementia , presents with fever and dysuria, also complaining of anorexia sepsis secondary to UTI has complted antibiotics, urine cx reviewed, E coli, R to quinolones c diff colitis /severe sepsis -ID input appreciated, oral vanco and IV flagyl -has ileus, bowel rest, NPO, correct electrolytes -case dw ID information systems consultant Ileus NPO, daily KUB GI and Gen Sx input appreciated Dehydration Continue IV fluids Severe hypokalemia Magnesium level within normal limits, continue to correct Polymyositis outpatient rx, continue pain meds Dementia with sundowning restraints as needed, but avoid if possible malnutrition, moderate nutrition consult, add nutritional supplements Dementia with sundowning and behavioral issues -cont haldol prn DVT prophylaxis Chemical Patient has not had access for blood draws and IV abx, and IVF, dw nurse multiple phlebotomists and RNs have tried, obtain PICC line, to be be removed as soon as she completes abx History Interval history: c/o generalized body pain, from her Polymyositis, she is having watery diarrhea, multiple episodes, decreased in frequency -she is having sundowning and episodes of agitation and combativeness -she remians confused Hospitalist Physical - Physical exam Narrative exam: General.: Appears well, no distress, nontoxic, cachectic HEENT: Moist mucous membranes, extraocular muscles intact, no lymphadenopathy Neck: supple Cardiac: S1-S2 heard Lungs: clear to auscultation bilaterally Abdomen: soft , nontender, nondistended, bowel sounds positive Extremities: no edema clubbing or cyanosis Skin: no rash or lesions Neurologic: no gross focal deficits Psych: confused, - Constitutional Vitals: Temp Pulse Resp BP Pulse Ox 97.7 F 103 H 16 110/59 100 06/23/18 07:53 06/23/18 07:53 06/23/18 08:36 06/23/18 07:53 06/23/18 07:53 Results - Labs CBC & Chem 7: 06/21/18 13:32 06/23/18 15:45 Labs: Laboratory Last Values WBC 12.6 K/mm3 (4.5-11.0) H 06/21/18 13:32 RBC 4.78 M/mm3 (3.65-5.03) 06/21/18 13:32 Hgb 12.6 gm/dl (10.1-14.3) 06/21/18 13:32 Hct 38.5 % (30.3-42.9) 06/21/18 13:32 MCV 81 fl (79-97) 06/21/18 13:32 MCH 26 pg (28-32) L 06/21/18 13:32 MCHC 33 % (30-34) 06/21/18 13:32 RDW 17.3 % (13.2-15.2) H 06/21/18 13:32 Plt Count 267 K/mm3 (140-440) 06/21/18 13:32 Lymph % (Auto) 16.8 % (13.4-35.0) 06/21/18 13:32 [place] % (Auto) 4.8 % (0.0-7.3) 06/21/18 13:32 Eos % (Auto) 0.3 % (0.0-4.3) 06/21/18 13:32 Baso % (Auto) 0.2 % (0.0-1.8) 06/21/18 13:32 Lymph # 2.1 K/mm3 (1.2-5.4) 06/21/18 13:32 [place] # 0.6 K/mm3 (0.0-0.8) 06/21/18 13:32 Eos # 0.0 K/mm3 (0.0-0.4) 06/21/18 13:32 Baso # 0.0 K/mm3 (0.0-0.1) 06/21/18 13:32 Seg Neutrophils % 77.9 % (40.0-70.0) H 06/21/18 13:32 Seg Neutrophils # 9.8 K/mm3 (1.8-7.7) H 06/21/18 13:32 PT 16.4 Sec. (12.2-14.9) H 06/17/18 16:03 INR 1.25 (0.87-1.13) H 06/17/18 16:03 VBG pH 7.333 (7.320-7.420) 06/17/18 16:03 Sodium 131 mmol/L (137-145) L 06/22/18 04:34 Potassium 3.3 mmol/L (3.6-5.0) L 06/22/18 04:34 Chloride 100.7 mmol/L (98-107) 06/22/18 04:34 Carbon Dioxide 19 mmol/L (22-30) L 06/22/18 04:34 Anion Gap 15 mmol/L 06/22/18 04:34 BUN 4 mg/dL (7-17) L 06/22/18 04:34 Creatinine < 0.2 mg/dL (0.7-1.2) L 06/22/18 04:34 Estimated GFR > 60 ml/min 06/22/18 04:34 BUN/Creatinine Ratio 20 % 06/22/18 04:34 Glucose 99 mg/dL (65-100) 06/22/18 04:34 POC Glucose 87 (70-105) 06/19/18 10:43 Lactic Acid 1.60 mmol/L (0.7-2.0) 06/21/18 13:32 Calcium 7.6 mg/dL (8.4-10.2) L 06/22/18 04:34 Magnesium 1.80 mg/dL (1.7-2.3) 06/18/18 06:01 Total Bilirubin 0.20 mg/dL (0.1-1.2) 06/17/18 16:03 AST 21 units/L (5-40) 06/17/18 16:03 ALT 12 units/L (7-56) 06/17/18 16:03 Alkaline Phosphatase 112 units/L (35-129) 06/17/18 16:03 Total Protein 7.8 g/dL (6.3-8.2) 06/17/18 16:03 Albumin 3.4 g/dL (3.9-5) L 06/17/18 16:03 Albumin/Globulin Ratio 0.8 % 06/17/18 16:03 Urine Color [place] (Yellow) 06/17/18 18:38 Urine Turbidity Turbid (Clear) 06/17/18 18:38 Urine pH 5.0 (5.0-7.0) 06/17/18 18:38 Ur Specific [place] 1.020 (1.003-1.030) 06/17/18 18:38 Urine Protein 100 mg/dl mg/dL (Negative) 06/17/18 18:38 Urine Glucose (UA) Neg mg/dL (Negative) 06/17/18 18:38 Urine Ketones Tr mg/dL (Negative) 06/17/18 18:38 Urine Blood Sm (Negative) 06/17/18 18:38 Urine Nitrite Pos (Negative) 06/17/18 18:38 Urine Bilirubin Neg (Negative) 06/17/18 18:38 Urine Urobilinogen 2.0 mg/dL (<2.0) 06/17/18 18:38 Ur Leukocyte Esterase Mod (Negative) 06/17/18 18:38 Urine WBC (Auto) > 182.0 /HPF (0.0-6.0) H 06/17/18 18:38 Urine RBC (Auto) 28.0 /HPF (0.0-6.0) 06/17/18 18:38 Urine Bacteria (Auto) 4+ /HPF (Negative) 06/17/18 18:38 Urine Mucus 3+ /HPF 06/17/18 18:38 Urine Yeast (Budding) 3+ /HPF 06/17/18 18:38 C. difficile Toxin A&B Positive (Negative) A 06/19/18 19:00
--- NOTE | 2018-06-23 11:09 | XRay Report ---
FINAL REPORT EXAM: XR ABDOMEN 1V AP HISTORY: ileus FOLLOW UP SEVERE C DIFF TECHNIQUE: AP abdominal radiograph. PRIORS: 06/22/2018. FINDINGS: Severe gaseous distention of the colon is mildly improved. Gaseous distention of multiple loops of small bowel is unchanged. No organomegaly or masses. No abnormal calcifications. No acute osseous abnormality. IMPRESSION: Mild improved gaseous distention of the colon. No significant change in gaseous distention of multiple loops of small bowel.
--- NOTE | 2018-06-23 11:20 | Progress Note ---
Assessment and Plan Cultures: Urine cultures growing E.coli, R to Cipro and Levofloxacin A/P: 68/F with polymyositis, recent CVA, anxiety, dementia admitted with: #1 C. difficile diarrhea, severe with ileus: Continue IV Flagyl + PO Vancomycin 250 mg qid. Continue close monitoring, serial abdominal exams, KUB. If clinically worse, may have to get Gen. Surg consult for colectomy. Will discontinue Aztreonam today. #2 UTI: UA showed high WBCs on admission, urine culture has grown Escherichia coli that is resistant to fluoroquinolones. Stop IV aztreonam today, minimize exposure to other antimicrobials. No clinical evidence of pyelonephritis or bacteremia. #3 Sepsis, present on admission, likely secondary to above: UTI and now C.difficile diarrhea. #4 Penicillin allergy: Patient has listed anaphylaxis as allergy to penicillin. Hence will avoid beta-lactam's since patient is not a reliable historian at this time. Recs: discontinued aztreonam continue oral vancomycin 250 mg 4 times a day + IV Flagyl 500 mg q8 hrs repeat CBC, CMP ordered Continue close monitoring, serial abdominal exams, KUB. If clinically worse, may have to get Gen. Surg consult for colectomy eval Continue contact isolation Will follow. Please call with questions. Marino Choudhury MD [facility] C: [phone] O: [phone] F: [phone] Subjective Date of service: 06/23/18 Principal diagnosis: C.difficile colitis Interval history: Patient without fever. Liquid stools/diarrhea continue requiring Flexiseal. Denies any pain. No vomiting. Objective - Exam Narrative Exam: Physical Exam: Constitutional: Alert, cooperative. No acute distress Head, Ears, Nose: Normocephalic, atraumatic. External ears, nose normal Eyes: Conjunctivae/corneas clear. No icterus. No ptosis. Neck: Supple, no meningeal signs Oral: no ulcers, no thrush, mucosa appears dry. Cardiovascular: S1, S2 normal. Respiratory: Good air entry, clear to auscultation bilaterally GI: mildly distended, mild diffuse tenderness; bowel sounds present but hypoactive. No peritoneal signs Musculoskeletal: No pedal edema, no cyanosis. Skin: No rash or abscess. Sacral decubitus ulcer +, 5 cm without drainage. Hem/Lymphatic: No palpable cervical or supraclavicular nodes. No lymphangitis Psych: Mood ok. Affect flat. Neurological: Awake, alert, oriented to place - Constitutional Vitals: Vital Signs Temp Pulse Resp BP Pulse Ox 97.7 F 103 H 16 110/59 100 06/23/18 07:53 06/23/18 07:53 06/23/18 08:36 06/23/18 07:53 06/23/18 07:53 Temperature -Last 24 Hours Temperature 97.7 F Temperature 97.5 F Temperature 97.6 F Temperature 97.8 F - Labs CBC & Chem 7: 06/21/18 13:32 06/22/18 04:34 - Imaging and cardiology Abdominal x-ray: image reviewed (official read pending. Shows persistent ileus.)
--- NOTE | 2018-06-23 15:34 | Gastroenterology Consultation ---
History of Present Illness - Reason for Consult Consult date: 06/23/18 ileus, C. diff colitis Requesting physician: KIMBERLY JOHNSON - History of Present Illness The patient is a 68 year old female for whom consultation was requested for C. diff and persistent ileus. She was admitted on 06/17 with confusion and a febrile illness associated with diarrhea and several non specific complaints. C. diff was positive and patient was started on IV Flagyl on 06/19 and subsequently oral Vancomycin at 125mg QID, now increased to 250mg QID. She has had a persistent ileus on abdominal Xrays although her WBC has decreased from 17 to 12 and fever has resolved. She denies n/v or abdominal pain. The patient has been chronically ill due to a CVA and mild dementia, but her mental status has deteriorated since the acute illness by chart review. Past History Past Medical History: stroke, other (dementia, polymyositis) Past Surgical History: Other (unknown) Social history: lives with family Family history: other (unknown) Medications and Allergies Allergies Allergy/AdvReac Type Severity Reaction Status Date / Time codeine Allergy Anaphylaxis Verified 06/17/18 15:21 penicillin Allergy Anaphylaxis Verified 05/26/17 17:25 sulfamethoxazole Allergy Anaphylaxis Verified 05/26/17 17:25 [From Bactrim] trimethoprim [From Bactrim] Allergy Anaphylaxis Verified 05/26/17 17:25 Home Medications Medication Instructions Recorded Confirmed Last Taken Type ALPRAZolam [Xanax TAB] 0.5 mg PO Q8H PRN #14 tablet 04/10/18 06/18/18 Unknown Rx Baclofen [Lioresal] 10 mg PO BID PRN #60 tablet 04/10/18 06/18/18 Unknown Rx Gabapentin [Neurontin] 300 mg PO Q8HR #30 capsule 04/10/18 06/18/18 Unknown Rx Sennosides Tab [Senokot] 8.6 mg PO Q12H PRN #20 tablet 04/10/18 06/18/18 Unknown Rx traMADol [Ultram 50 MG tab] 50 mg PO TID PRN #14 tablet 04/10/18 06/18/18 Unknown Rx Acetaminophen [Tylenol Arthritis] 650 mg PO Q6HR PRN #30 tablet.er 05/29/18 Unknown Rx Active Meds: Active Medications Acetaminophen (Tylenol) 650 mg PO Q4H PRN PRN Reason: Pain MILD(1-3)/Fever >100.5/RDZ Last Admin: 06/21/18 15:58 Dose: 650 mg Enoxaparin Sodium (Lovenox) 40 mg SUB-Q QDAY [facility] Last Admin: 06/23/18 10:33 Dose: 40 mg Haloperidol Lactate (Haldol) 5 mg IM Q6H PRN PRN Reason: Agitation Last Admin: 06/22/18 21:20 Dose: 5 mg Metronidazole (Flagyl 500 Mg/100 Ml) 500 mg in 100 mls @ 100 mls/hr IV Q8HR [facility] ; Protocol Last Admin: 06/23/18 13:59 Dose: 100 mls/hr Sodium Chloride (Nacl 0.45% 1000 Ml) 1,000 mls @ 125 mls/hr IV DIRECT [facility] Last Admin: 06/23/18 05:19 Dose: 125 mls/hr Magnesium Hydroxide (Milk Of Magnesia) 30 ml PO Q4H PRN PRN Reason: Constipation Metoclopramide HCl (Reglan) 5 mg IV Q6H PRN PRN Reason: Nausea And Vomiting Ondansetron HCl (Zofran) 4 mg IV Q8H PRN PRN Reason: Nausea And Vomiting Oxycodone/Acetaminophen (Percocet 5/325) 1 tab PO Q6H PRN PRN Reason: Pain, Moderate (4-6) Last Admin: 06/22/18 09:18 Dose: 1 tab Potassium Chloride (K-Dur) 40 meq PO QDAY [facility] Last Admin: 06/23/18 10:35 Dose: Not Given Senna (Senokot) 8.6 mg PO Q12HR [facility] Last Admin: 06/23/18 10:35 Dose: Not Given Sodium Chloride (Sodium Chloride Flush Syringe 10 Ml) 10 ml IV BID [facility] Last Admin: 06/23/18 10:34 Dose: 10 ml Sodium Chloride (Sodium Chloride Flush Syringe 10 Ml) 10 ml IV PRN PRN PRN Reason: LINE FLUSH Trazodone HCl (Desyrel) 25 mg PO QHS [facility] Last Admin: 06/22/18 21:21 Dose: Not Given Vancomycin HCl (Vancomycin Po) 250 mg PO Q6HR [facility] Last Admin: 06/23/18 12:57 Dose: 250 mg Review of Systems - Review of Systems ROS unobtainable: due to mental status Exam - Constitutional Vital Signs: Temp Pulse Resp BP Pulse Ox 98.4 F 101 H 18 111/64 100 06/23/18 11:56 06/23/18 11:56 06/23/18 11:56 06/23/18 11:56 06/23/18 11:56 General appearance: no acute distress, well-nourished - EENT Eyes: PERRL ENT: hearing intact, clear oral mucosa - Neck Neck: supple, normal ROM, no masses or JVD - Respiratory Respiratory effort: normal Respiratory: bilateral: CTA - Breasts Breasts: deferred - Cardiovascular Rhythm: regular Heart Sounds: Present: S1 & S2. Absent: gallop, rub Extremities: pulses intact, No edema, normal color, Full ROM - Gastrointestinal General gastrointestinal: Present: soft, distended (mild distention and tympany , non tender), normal bowel sounds. Absent: hepatomegaly, splenomegaly, mass Rectal Exam: deferred - Genitourinary Female Genitourinary: deferred - Integumentary Integumentary: Present: clear, warm, dry - Neurologic Neurological: oriented to person, oriented to place, right side weakness - Psychiatric Psychiatric: no intact judgment & insight, no memory intact, cooperative, no agitated, no depressed - Labs CBC & Chem 7: 06/21/18 13:32 06/22/18 04:34 - Imaging X-ray: report reviewed, image reviewed Assessment and Plan - Patient Problems (1) C. difficile colitis Current Visit: Yes Status: Acute Plan to address problem: Probably responding slowly given now afebrile status and decreasing WBC. The ileus may be multifactorial (2) Ileus Current Visit: Yes Status: Acute Plan to address problem: Probably multi-factorial and related to C. diff, sepsis and medications, eg narcotics and Trazadone. Currently, I suspect there has been some improvement in the generalized ileus and distention is not limited to a luis colon alone. If she develops n/v, then and NGT for decompression would be helpful. Would eliminate narcotics and stop Trazadone for now if feasible. A sigmoidoscopy for decompression may not be helpful at the present time with the distention not being solely a megacolon, but will follow closely. Thank you for asking me to see her in consultation. (3) Sepsis Current Visit: Yes Status: Acute Qualifiers: Sepsis type: sepsis due to unspecified organism Qualified Code(s): A41.9 - Sepsis, unspecified organism (4) Encephalopathy Current Visit: No Status: Acute (5) Sacral decubitus ulcer, stage III Current Visit: No Status: Acute (6) Polymyositis Current Visit: No Status: Chronic
[2018-06-23] MEDS: PERCOCET 5/325 PO PRN (17:01)
[2018-06-23 17:04] LABS: BUN/Creatinine Ratio 10; Blood Urea Nitrogen 2 mg/dL (7-17); Calcium 7.3 mg/dL (8.4-10.2); Hemolysis Index 38
[2018-06-23] MEDS ORDERED: K-DUR PO SCH (22:00)
[2018-06-23] MEDS: POTASSIUM CHLORIDE FEEDTUBE SCH (22:40)
[2018-06-24] MEDS: VANCOMYCIN PO PO SCH ×5 (00:42→23:14)
[2018-06-24 03:36] LABS: BUN/Creatinine Ratio 10; Blood Urea Nitrogen 2 mg/dL (7-17); Calcium 7.4 mg/dL (8.4-10.2); Hemolysis Index 22
[2018-06-24] MEDS: FLAGYL 500 MG/100 ML 500 MG/100 ML BAG IV SCH ×3 (05:22→22:06)
[2018-06-24 05:37] LABS: Basophils % (Auto) 0.2 % (0.0-1.8); Eosinophils % (Auto) 0.2 % (0.0-4.3); Hemoglobin 10.7 gm/dl (10.1-14.3); Lymphocytes # (Auto) 2.8 K/mm3 (1.2-5.4); Lymphocytes % (Auto) 20.8 % (13.4-35.0); Mean Corpuscular HGB Conc 34 % (30-34); Mean Corpuscular Hemoglobin 27 pg (28-32); Mean Corpuscular Volume 79 fl (79-97); Monocytes # (Auto) 0.7 K/mm3 (0.0-0.8); Platelet Count 364 K/mm3 (140-440); Red Blood Count 4.01 M/mm3 (3.65-5.03); Red Cell Distribution Width 17.5 % (13.2-15.2)
[2018-06-24 05:47] LABS: Hematocrit 33.5 % (30.3-42.9)
[2018-06-24 06:04] LABS: Alanine Aminotransferase 14 units/L (7-56); Albumin 1.8 g/dL (3.9-5); BUN/Creatinine Ratio 10; Blood Urea Nitrogen 2 mg/dL (7-17); Calcium 7.2 mg/dL (8.4-10.2); Hemolysis Index 50
--- NOTE | 2018-06-24 08:27 | XRay Report ---
AP ABDOMEN: HISTORY: Ileus. No significant change is demonstrated and mild gaseous distention of small bowel loops. There is relatively normal gas in the colon. Trace air is identified in the rectum. Lung bases are clear. IMPRESSION: No change.
--- NOTE | 2018-06-24 09:05 | Progress Note ---
Assessment and Plan Cultures: Urine cultures growing E.coli, R to Cipro and Levofloxacin Imaging : 06-20-18 - KUB - There is moderate gas throughout the GI tract which could represent an ileus. No obvious mass or large free air or pathologic calcifications 06-24-18 - KUB - mild gaseous distention of small bowel loops. There is relatively normal gas in the colon. Trace air is identified in the rectum. No change. A/P: 68/F with polymyositis, recent CVA, anxiety, dementia admitted with: #1 C. difficile diarrhea, severe with ileus: Continue IV Flagyl + PO Vancomycin 250 mg qid. Continue close monitoring, serial abdominal exams, KUB. No change today.-no plans for sigmoidoscopy at this time. If clinically worse, may have to get Gen. Surg consult for colectomy. #2 UTI: UA showed high WBCs on admission, urine culture has grown Escherichia coli that is resistant to fluoroquinolones. Stop IV aztreonam today, minimize exposure to other antimicrobials. No clinical evidence of pyelonephritis or bacteremia. #3 Sepsis, improved, likely secondary to above: UTI and now C.difficile diarrhea. #4 Penicillin allergy: Patient has listed anaphylaxis as allergy to penicillin. Hence will avoid beta-lactam's since patient is not a reliable historian at this time. Recs: continue oral vancomycin 250 mg 4 times a day + IV Flagyl 500 mg q8 hrs Continue close monitoring, serial abdominal exams, KUB. If clinically worse, may have to get Gen. Surg consult for colectomy eval Continue contact isolation [facility] M: [phone] O:[phone]. Subjective Date of service: 06/24/18 Principal diagnosis: C.difficile colitis Interval history: Patient seen and examined. Continued abdominal pain. loose stools continuing. No fevers. Current Antimicrobials: Vancomycin Flagyl Previous Antimicrobials: aztreonam Objective - Exam Narrative Exam: Constitutional: Alert, cooperative. c/o of mild abdominal pain and tenderness Head, Ears, Nose: Normocephalic, atraumatic. External ears, nose normal Eyes: Conjunctivae/corneas clear. No icterus. No ptosis. Neck: Supple, no meningeal signs Oral: no ulcers, no thrush, mucosa appears dry. Cardiovascular: S1, S2 normal. Respiratory: Good air entry, clear to auscultation bilaterally GI: mildly distended, mild diffuse tenderness; hypoactive bowel sounds, rectal tube in place, continued loose stools Musculoskeletal: No pedal edema, no cyanosis. Skin: No rash or abscess. Sacral decubitus ulcer +, 5 cm without drainage. Hem/Lymphatic: No palpable cervical or supraclavicular nodes. No lymphangitis Psych: Mood ok. Affect flat. Neurological: Awake but sleepy, oriented times 1 - Constitutional Vitals: Vital Signs Temp Pulse Resp BP Pulse Ox 97.6 F 108 H 20 119/70 100 06/24/18 07:48 06/24/18 07:48 06/24/18 07:48 06/24/18 07:48 06/24/18 07:48 Temperature -Last 24 Hours Temperature 97.6 F Temperature 98.3 F Temperature 97.5 F Temperature 99.3 F Temperature 97.5 F Temperature 98.4 F - Labs CBC & Chem 7: 06/24/18 05:08 06/24/18 05:08 Labs: Abnormal lab results 06/23/18 06/24/18 06/24/18 Range/Units 15:45 02:49 05:08 WBC 13.3 H (4.5-11.0) K/mm3 MCH 27 L (28-32) pg RDW 17.5 H (13.2-15.2) % Seg Neutrophils % 73.8 H (40.0-70.0) % Seg Neutrophils # 9.8 H (1.8-7.7) K/mm3 Sodium 130 L 129 L (137-145) mmol/L Potassium 2.8 L* 3.5 L D (3.6-5.0) mmol/L Carbon Dioxide 12 L D 14 L (22-30) mmol/L BUN 2 L 2 L (7-17) mg/dL Creatinine < 0.2 L < 0.2 L (0.7-1.2) mg/dL Glucose 59 L (65-100) mg/dL Calcium 7.3 L 7.4 L (8.4-10.2) mg/dL Total Protein (6.3-8.2) g/dL Albumin (3.9-5) g/dL 06/24/18 Range/Units 05:08 WBC (4.5-11.0) K/mm3 MCH (28-32) pg RDW (13.2-15.2) % Seg Neutrophils % (40.0-70.0) % Seg Neutrophils # (1.8-7.7) K/mm3 Sodium 131 L (137-145) mmol/L Potassium 3.3 L (3.6-5.0) mmol/L Carbon Dioxide 15 L (22-30) mmol/L BUN 2 L (7-17) mg/dL Creatinine < 0.2 L (0.7-1.2) mg/dL Glucose (65-100) mg/dL Calcium 7.2 L (8.4-10.2) mg/dL Total Protein 4.4 L (6.3-8.2) g/dL Albumin 1.8 L (3.9-5) g/dL
--- NOTE | 2018-06-24 10:43 | Gastroenterology Progress Note ---
<CARMITAPROMISE EldridgeAnju - Last Filed: 06/24/18 10:52> Assessment and Plan 1.C.difficile colitis -afebrile -WBC 13.3 -continue Flagyl and vanco (ID following) 2.ileus -KUB this am with no change -etiology-likely multifactorial -clinically, patient is stable -no plans for sigmoidoscopy at this time (may not be helful at the present time with the distention not being solely a megacolon) -limit narcotics -NGT if develops N/V -continue close monitoring, serial abdominal exams, KUB -consider surgery consult based on progress if clinically worsens -will follow 3.sepsis 4.encephalopathy 5.sacral decubitus ulcer, stage III 6.polymyositis Subjective Date of service: 06/24/18 Principal diagnosis: C.difficile colitis Interval history: No acute events overnight. Has some mild abd discomfort but denies pain or N/V. Objective - Constitutional Vitals: Temp Pulse Resp BP Pulse Ox 97.6 F 108 H 20 119/70 100 06/24/18 07:48 06/24/18 07:48 06/24/18 07:48 06/24/18 07:48 06/24/18 07:48 General appearance: no acute distress - Respiratory Respiratory: bilateral: CTA (anterior) - Cardiovascular Rhythm: other (tachycardiac) - Gastrointestinal General gastrointestinal: Present: soft, non-tender, distended (ild distention and tympany, non tender), normal bowel sounds - Labs CBC & Chem 7: 06/24/18 05:08 06/24/18 05:08 Labs: Laboratory Results - last 24 hr 06/23/18 06/24/18 06/24/18 15:45 02:49 05:08 WBC 13.3 H RBC 4.01 Hgb 10.7 Hct 33.5 MCV 79 MCH 27 L MCHC 34 RDW 17.5 H Plt Count 364 Lymph % (Auto) 20.8 [place] % (Auto) 5.0 Eos % (Auto) 0.2 Baso % (Auto) 0.2 Lymph # 2.8 [place] # 0.7 Eos # 0.0 Baso # 0.0 Seg Neutrophils % 73.8 H Seg Neutrophils # 9.8 H Sodium 130 L 129 L Potassium 2.8 L* 3.5 L D Chloride 99.2 101.6 Carbon Dioxide 12 L D 14 L Anion Gap 22 17 BUN 2 L 2 L Creatinine < 0.2 L < 0.2 L Estimated GFR > 60 > 60 BUN/Creatinine Ratio 10 10 Glucose 59 L 79 Calcium 7.3 L 7.4 L Total Bilirubin AST ALT Alkaline Phosphatase Total Protein Albumin Albumin/Globulin Ratio 06/24/18 05:08 WBC RBC Hgb Hct MCV MCH MCHC RDW Plt Count Lymph % (Auto) [place] % (Auto) Eos % (Auto) Baso % (Auto) Lymph # [place] # Eos # Baso # Seg Neutrophils % Seg Neutrophils # Sodium 131 L Potassium 3.3 L Chloride 100.1 Carbon Dioxide 15 L Anion Gap 19 BUN 2 L Creatinine < 0.2 L Estimated GFR > 60 BUN/Creatinine Ratio 10 Glucose 76 Calcium 7.2 L Total Bilirubin 0.20 AST 20 ALT 14 Alkaline Phosphatase 75 Total Protein 4.4 L Albumin 1.8 L Albumin/Globulin Ratio 0.7 <PILAR ESPOSITO - Last Filed: 06/24/18 17:41> Assessment and Plan - Patient Problems (1) C. difficile colitis Current Visit: Yes Status: Acute (2) Ileus Current Visit: Yes Status: Acute (3) Sepsis Current Visit: Yes Status: Acute Qualifiers: Sepsis type: sepsis due to unspecified organism Qualified Code(s): A41.9 - Sepsis, unspecified organism (4) Encephalopathy Current Visit: No Status: Acute (5) Sacral decubitus ulcer, stage III Current Visit: No Status: Acute (6) Polymyositis Current Visit: No Status: Chronic Objective - Constitutional Vitals: Temp Pulse Resp BP Pulse Ox 98.1 F 104 H 18 113/68 99 06/24/18 14:14 06/24/18 14:14 06/24/18 14:14 06/24/18 14:14 06/24/18 14:14 - Labs CBC & Chem 7: 06/24/18 05:08 06/24/18 05:08 Labs: Laboratory Results - last 24 hr 06/24/18 06/24/18 06/24/18 02:49 05:08 05:08 WBC 13.3 H RBC 4.01 Hgb 10.7 Hct 33.5 MCV 79 MCH 27 L MCHC 34 RDW 17.5 H Plt Count 364 Lymph % (Auto) 20.8 [place] % (Auto) 5.0 Eos % (Auto) 0.2 Baso % (Auto) 0.2 Lymph # 2.8 [place] # 0.7 Eos # 0.0 Baso # 0.0 Seg Neutrophils % 73.8 H Seg Neutrophils # 9.8 H Sodium 129 L 131 L Potassium 3.5 L D 3.3 L Chloride 101.6 100.1 Carbon Dioxide 14 L 15 L Anion Gap 17 19 BUN 2 L 2 L Creatinine < 0.2 L < 0.2 L Estimated GFR > 60 > 60 BUN/Creatinine Ratio 10 10 Glucose 79 76 Calcium 7.4 L 7.2 L Total Bilirubin 0.20 AST 20 ALT 14 Alkaline Phosphatase 75 Total Protein 4.4 L Albumin 1.8 L Albumin/Globulin Ratio 0.7 Impression/Plan - Impression Impression: C. diff colitis and ileus. Ileus may be secondary to hypokalemia. Stable although no improvement in ileus.
[2018-06-24] MEDS: LOVENOX SUB-Q SCH (11:15)
[2018-06-24] MEDS: SENOKOT PO SCH ×2 (11:15→22:07)
[2018-06-24] MEDS: POTASSIUM CHLORIDE FEEDTUBE SCH ×2 (11:15→22:07)
[2018-06-24] MEDS: SODIUM CHLORIDE FLUSH SYRINGE 10 ML IV SCH ×2 (13:18→22:08)
--- NOTE | 2018-06-24 15:25 | Progress Note ---
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 Ileus NPO, daily KUB, stable GI and Gen Sx input appreciated -advance diet as tolerated Dehydration Continue IV fluids Severe hypokalemia Magnesium level within normal limits, continue to correct Polymyositis outpatient rx, continue pain meds Dementia with sundowning medical and physical restraints as needed, but avoid if possible malnutrition, moderate to severe nutrition consult, add nutritional supplements Dementia with sundowning and behavioral issues -cont haldol prn sacral decub, poa cont wound care DVT prophylaxis Chemical Mid line was placed due to poor access -dw family and CM, they would like care home snf placement History Interval history: c/o generalized body pain, from her Polymyositis, she is having watery diarrhea, multiple episodes, decreased in frequency -she is having sundowning and episodes of agitation and combativeness -she denies any abdominal pain -she is hungry and thirsty Hospitalist Physical - Physical exam Narrative exam: General.: Appears well, no distress, nontoxic, cachectic HEENT: Moist mucous membranes, extraocular muscles intact, no lymphadenopathy Neck: supple Cardiac: S1-S2 heard Lungs: clear to auscultation bilaterally Abdomen: soft , nontender, nondistended, bowel sounds positive Extremities: no edema clubbing or cyanosis Skin: sacral decub, [id number] Neurologic: no gross focal deficits Psych: confused, - Constitutional Vitals: Temp Pulse Resp BP Pulse Ox 98.1 F 104 H 18 113/68 99 06/24/18 14:14 06/24/18 14:14 06/24/18 14:14 06/24/18 14:14 06/24/18 14:14 Results - Labs CBC & Chem 7: 06/24/18 05:08 06/24/18 05:08 Labs: Laboratory Last Values WBC 13.3 K/mm3 (4.5-11.0) H 06/24/18 05:08 RBC 4.01 M/mm3 (3.65-5.03) 06/24/18 05:08 Hgb 10.7 gm/dl (10.1-14.3) 06/24/18 05:08 Hct 33.5 % (30.3-42.9) 06/24/18 05:08 MCV 79 fl (79-97) 06/24/18 05:08 MCH 27 pg (28-32) L 06/24/18 05:08 MCHC 34 % (30-34) 06/24/18 05:08 RDW 17.5 % (13.2-15.2) H 06/24/18 05:08 Plt Count 364 K/mm3 (140-440) 06/24/18 05:08 Lymph % (Auto) 20.8 % (13.4-35.0) 06/24/18 05:08 [place] % (Auto) 5.0 % (0.0-7.3) 06/24/18 05:08 Eos % (Auto) 0.2 % (0.0-4.3) 06/24/18 05:08 Baso % (Auto) 0.2 % (0.0-1.8) 06/24/18 05:08 Lymph # 2.8 K/mm3 (1.2-5.4) 06/24/18 05:08 [place] # 0.7 K/mm3 (0.0-0.8) 06/24/18 05:08 Eos # 0.0 K/mm3 (0.0-0.4) 06/24/18 05:08 Baso # 0.0 K/mm3 (0.0-0.1) 06/24/18 05:08 Seg Neutrophils % 73.8 % (40.0-70.0) H 06/24/18 05:08 Seg Neutrophils # 9.8 K/mm3 (1.8-7.7) H 06/24/18 05:08 PT 16.4 Sec. (12.2-14.9) H 06/17/18 16:03 INR 1.25 (0.87-1.13) H 06/17/18 16:03 VBG pH 7.333 (7.320-7.420) 06/17/18 16:03 Sodium 131 mmol/L (137-145) L 06/24/18 05:08 Potassium 3.3 mmol/L (3.6-5.0) L 06/24/18 05:08 Chloride 100.1 mmol/L (98-107) 06/24/18 05:08 Carbon Dioxide 15 mmol/L (22-30) L 06/24/18 05:08 Anion Gap 19 mmol/L 06/24/18 05:08 BUN 2 mg/dL (7-17) L 06/24/18 05:08 Creatinine < 0.2 mg/dL (0.7-1.2) L 06/24/18 05:08 Estimated GFR > 60 ml/min 06/24/18 05:08 BUN/Creatinine Ratio 10 % 06/24/18 05:08 Glucose 76 mg/dL (65-100) 06/24/18 05:08 POC Glucose 87 (70-105) 06/19/18 10:43 Lactic Acid 1.60 mmol/L (0.7-2.0) 06/21/18 13:32 Calcium 7.2 mg/dL (8.4-10.2) L 06/24/18 05:08 Magnesium 1.80 mg/dL (1.7-2.3) 06/18/18 06:01 Total Bilirubin 0.20 mg/dL (0.1-1.2) 06/24/18 05:08 AST 20 units/L (5-40) 06/24/18 05:08 ALT 14 units/L (7-56) 06/24/18 05:08 Alkaline Phosphatase 75 units/L (35-129) 06/24/18 05:08 Total Protein 4.4 g/dL (6.3-8.2) L 06/24/18 05:08 Albumin 1.8 g/dL (3.9-5) L 06/24/18 05:08 Albumin/Globulin Ratio 0.7 % 06/24/18 05:08 Urine Color Katharine (Yellow) 06/17/18 18:38 Urine Turbidity Turbid (Clear) 06/17/18 18:38 Urine pH 5.0 (5.0-7.0) 06/17/18 18:38 Ur Specific [place] 1.020 (1.003-1.030) 06/17/18 18:38 Urine Protein 100 mg/dl mg/dL (Negative) 06/17/18 18:38 Urine Glucose (UA) Neg mg/dL (Negative) 06/17/18 18:38 Urine Ketones Tr mg/dL (Negative) 06/17/18 18:38 Urine Blood Sm (Negative) 06/17/18 18:38 Urine Nitrite Pos (Negative) 06/17/18 18:38 Urine Bilirubin Neg (Negative) 06/17/18 18:38 Urine Urobilinogen 2.0 mg/dL (<2.0) 06/17/18 18:38 Ur Leukocyte Esterase Mod (Negative) 06/17/18 18:38 Urine WBC (Auto) > 182.0 /HPF (0.0-6.0) H 06/17/18 18:38 Urine RBC (Auto) 28.0 /HPF (0.0-6.0) 06/17/18 18:38 Urine Bacteria (Auto) 4+ /HPF (Negative) 06/17/18 18:38 Urine Mucus 3+ /HPF 06/17/18 18:38 Urine Yeast (Budding) 3+ /HPF 06/17/18 18:38 C. difficile Toxin A&B Positive (Negative) A 06/19/18 19:00
[2018-06-24] MEDS: KCL 40 MEQ in NACL 0.45% 1000 ML 1,000 ML IV SCH (22:05)
[2018-06-25 05:23] LABS: Calcium 7.1 mg/dL (8.4-10.2); Hemolysis Index 150
[2018-06-25 05:42] LABS: BUN/Creatinine Ratio 5; Blood Urea Nitrogen < 1 mg/dL (7-17)
[2018-06-25] MEDS: FLAGYL 500 MG/100 ML 500 MG/100 ML BAG IV SCH ×3 (05:48→22:41)
[2018-06-25] MEDS: VANCOMYCIN PO PO SCH ×3 (05:48→17:26)
[2018-06-25] MEDS: KCL 40 MEQ in NACL 0.45% 1000 ML 1,000 ML IV SCH (05:48)
--- NOTE | 2018-06-25 08:12 | XRay Report ---
AP ABDOMEN: HISTORY: Ileus. There is decreased gaseous distention of bowel loops by approximately 25% since yesterday's exam. There are a few mildly prominent loops of small bowel in the upper abdomen measuring 4.2 cm in diameter. There appears to be a rectal tube in place. The visualized lung bases are clear. IMPRESSION: Mild improvement in gaseous distention of bowel loops since yesterday's exam.
--- NOTE | 2018-06-25 08:18 | Progress Note ---
Assessment and Plan Cultures: Urine cultures growing E.coli, R to Cipro and Levofloxacin Imaging : 06-20-18 - KUB - There is moderate gas throughout the GI tract which could represent an ileus. No obvious mass or large free air or pathologic calcifications 06-24-18 - KUB - mild gaseous distention of small bowel loops. There is relatively normal gas in the colon. Trace air is identified in the rectum. No change 06-25-18 - KUB - Mild improvement in gaseous distention of bowel loops since yesterday exam. A/P: 68/F with polymyositis, recent CVA, anxiety, dementia admitted with: #1 C. difficile diarrhea, severe with ileus: Continue IV Flagyl + PO Vancomycin 250 mg qid. Continue close monitoring, serial abdominal exams, KUB - Improvement today. Clinically stable, tolerating clears. #2 UTI: UA showed high WBCs on admission, urine culture has grown Escherichia coli that is resistant to fluoroquinolones. Stop IV aztreonam today, minimize exposure to other antimicrobials. No clinical evidence of pyelonephritis or bacteremia. #3 Sepsis, improved, likely secondary to above: UTI and now C.difficile diarrhea. #4 Penicillin allergy: Patient has listed anaphylaxis as allergy to penicillin. Hence will avoid beta-lactam's since patient is not a reliable historian at this time. Recs: continue oral vancomycin 250 mg 4 times a day + IV Flagyl 500 mg q8 hrs Continue close monitoring, serial abdominal exams, KUB improved today Continue contact isolation ok to advance diet as tolerated from ID standpoint Monserrat Salinas NP [facility] M: [phone] O:[phone]. Subjective Date of service: 06/25/18 Principal diagnosis: C.difficile colitis Interval history: Patient was seen and examined. Sitting up in bed, appears to be tolerating clear liquids well. Denies abdominal pain. Exam limited. Current Antimicrobials: Vancomycin Flagyl Previous Antimicrobials: aztreonam Objective - Exam Narrative Exam: Constitutional: Alert, cooperative, no acute distress Head, Ears, Nose: Normocephalic, atraumatic. External ears, nose normal Eyes: Conjunctivae/corneas clear. No icterus. No ptosis. Neck: Supple, no meningeal signs Oral: no ulcers, no thrush, mucosa appears dry. Cardiovascular: S1, S2 normal. Respiratory: Good air entry, clear to auscultation bilaterally GI: mildly distended hypoactive bowel sounds, rectal tube in place, continued loose stools Musculoskeletal: No pedal edema, no cyanosis. Skin: No rash or abscess. Sacral decubitus ulcer +, 5 cm without drainage. Hem/Lymphatic: No palpable cervical or supraclavicular nodes. No lymphangitis Psych: Mood ok. Affect good Neurological:Awake, alert, oriented to place. - Constitutional Vitals: Vital Signs Temp Pulse Resp BP Pulse Ox 99.3 F 97 H 20 144/88 100 06/25/18 02:06 06/25/18 07:31 06/25/18 02:06 06/25/18 02:06 06/25/18 07:36 Temperature -Last 24 Hours Temperature 99.3 F Temperature 98.4 F Temperature 98.1 F - Labs CBC & Chem 7: 06/24/18 05:08 06/25/18 04:42 Labs: Abnormal lab results 06/25/18 Range/Units 04:42 Sodium 132 L (137-145) mmol/L Carbon Dioxide 18 L (22-30) mmol/L BUN < 1 L (7-17) mg/dL Creatinine < 0.2 L (0.7-1.2) mg/dL Calcium 7.1 L (8.4-10.2) mg/dL
[2018-06-25] MEDS: SODIUM CHLORIDE FLUSH SYRINGE 10 ML IV SCH (09:27)
[2018-06-25] MEDS: SENOKOT PO SCH (09:27)
[2018-06-25] MEDS: POTASSIUM CHLORIDE FEEDTUBE SCH ×2 (09:27→22:50)
[2018-06-25] MEDS: LOVENOX SUB-Q SCH (09:28)
--- NOTE | 2018-06-25 09:28 | Consultation ---
History of Present Illness Consult date: 06/25/18 Reason for consult: other (ileus) - History of present illness History of present illness: 68 yo AAF with ileus. She denies nausea, vomiting or abdominal pain. She has a rectal tube in place. She has never had a colonoscopy. She is s/p a BTL via a vertical midline hypogastric incision. Past History Past Medical History: stroke, other (dementia, polymyositis) Past Surgical History: Other (unknown) Social history: lives with family Family history: other (unknown) Medications and Allergies Allergies Allergy/AdvReac Type Severity Reaction Status Date / Time codeine Allergy Anaphylaxis Verified 06/17/18 15:21 penicillin Allergy Anaphylaxis Verified 05/26/17 17:25 sulfamethoxazole Allergy Anaphylaxis Verified 05/26/17 17:25 [From Bactrim] trimethoprim [From Bactrim] Allergy Anaphylaxis Verified 05/26/17 17:25 Home Medications Medication Instructions Recorded Confirmed Last Taken Type ALPRAZolam [Xanax TAB] 0.5 mg PO Q8H PRN #14 tablet 04/10/18 06/18/18 Unknown Rx Baclofen [Lioresal] 10 mg PO BID PRN #60 tablet 04/10/18 06/18/18 Unknown Rx Gabapentin [Neurontin] 300 mg PO Q8HR #30 capsule 04/10/18 06/18/18 Unknown Rx Sennosides Tab [Senokot] 8.6 mg PO Q12H PRN #20 tablet 04/10/18 06/18/18 Unknown Rx traMADol [Ultram 50 MG tab] 50 mg PO TID PRN #14 tablet 04/10/18 06/18/18 Unknown Rx Acetaminophen [Tylenol Arthritis] 650 mg PO Q6HR PRN #30 tablet.er 05/29/18 Unknown Rx Active Meds: Active Medications Acetaminophen (Tylenol) 650 mg PO Q4H PRN PRN Reason: Pain MILD(1-3)/Fever >100.5/RDZ Last Admin: 06/21/18 15:58 Dose: 650 mg Enoxaparin Sodium (Lovenox) 40 mg SUB-Q QDAY RE Last Admin: 06/24/18 11:15 Dose: Not Given Haloperidol Lactate (Haldol) 5 mg IM Q6H PRN PRN Reason: Agitation Last Admin: 06/22/18 21:20 Dose: 5 mg Metronidazole (Flagyl 500 Mg/100 Ml) 500 mg in 100 mls @ 100 mls/hr IV Q8HR [facility] ; Protocol Last Admin: 06/25/18 05:48 Dose: 100 mls/hr Potassium Chloride 40 meq/ (Sodium Chloride) 1,020 mls @ 125 mls/hr IV DIRECT RE Last Admin: 06/25/18 05:48 Dose: 125 mls/hr Magnesium Hydroxide (Milk Of Magnesia) 30 ml PO Q4H PRN PRN Reason: Constipation Metoclopramide HCl (Reglan) 5 mg IV Q6H PRN PRN Reason: Nausea And Vomiting Ondansetron HCl (Zofran) 4 mg IV Q8H PRN PRN Reason: Nausea And Vomiting Oxycodone/Acetaminophen (Percocet 5/325) 1 tab PO Q6H PRN PRN Reason: Pain, Moderate (4-6) Last Admin: 06/23/18 17:01 Dose: 1 tab Potassium Chloride (Potassium Chloride) 40 meq FEEDTUBE BID [facility] Last Admin: 06/24/18 22:07 Dose: 40 meq Senna (Senokot) 8.6 mg PO Q12HR [facility] Last Admin: 06/24/18 22:07 Dose: Not Given Sodium Chloride (Sodium Chloride Flush Syringe 10 Ml) 10 ml IV BID [facility] Last Admin: 06/24/18 22:08 Dose: 10 ml Sodium Chloride (Sodium Chloride Flush Syringe 10 Ml) 10 ml IV PRN PRN PRN Reason: LINE FLUSH Vancomycin HCl (Vancomycin Po) 250 mg PO Q6HR [facility] Last Admin: 06/25/18 05:48 Dose: 250 mg Review of Systems All systems: negative (none) Exam Vital Signs Resp Pulse Ox 22 97 06/17/18 15:15 06/17/18 15:15 - General physical appearance Positive: well developed, well nourished, no distress - Eyes Positive: PERRL, normal occular movement - ENT Positive: normal pinna, normal nares, normal mucosa, no hearing loss, no congestion - Neck Positive: no masses, no bruits, trachea midline, no venous distension - Respiratory Positive: normal expansion, normal respiratory effort, clear to auscultation - Cardiovascular Rhythm: regular Heart Sounds: Present: S1 & S2. Absent: rub, click - Extremities Extremities: no ischemia, pulses symmetrical, No edema - Breasts Breasts: deferred - Abdomen Abdomen: Present: soft, bowel sounds normal. Absent: tender, distended Hernia: none - Genitourinary Female Genitourinary: deferred - Rectum Rectum: other (Rectal tube is in place with melanotic appearing liquid drainage. ) - Integumentary no rash, no growths, no abnormal pigmentation - Neurologic Neurologic: motor strength and sensation are grossly intact, CN II-XII intact - Musculoskeletal normal gait, normal posture - Psychiatric Psychiatric: appropriate mood/affect, intact judgment & insight Results - Labs 06/24/18 05:08 06/25/18 04:42 Abnormal lab results 06/25/18 Range/Units 04:42 Sodium 132 L (137-145) mmol/L Carbon Dioxide 18 L (22-30) mmol/L BUN < 1 L (7-17) mg/dL Creatinine < 0.2 L (0.7-1.2) mg/dL Calcium 7.1 L (8.4-10.2) mg/dL Diabetes panel 06/25/18 Range/Units 04:42 Sodium 132 L (137-145) mmol/L Potassium 4.5 D (3.6-5.0) mmol/L Chloride 102.2 (98-107) mmol/L Carbon Dioxide 18 L (22-30) mmol/L BUN < 1 L (7-17) mg/dL Creatinine < 0.2 L (0.7-1.2) mg/dL Glucose 83 (65-100) mg/dL Calcium 7.1 L (8.4-10.2) mg/dL Calcium panel 06/25/18 Range/Units 04:42 Calcium 7.1 L (8.4-10.2) mg/dL Pituitary panel 06/25/18 Range/Units 04:42 Sodium 132 L (137-145) mmol/L Potassium 4.5 D (3.6-5.0) mmol/L Chloride 102.2 (98-107) mmol/L Carbon Dioxide 18 L (22-30) mmol/L BUN < 1 L (7-17) mg/dL Creatinine < 0.2 L (0.7-1.2) mg/dL Glucose 83 (65-100) mg/dL Calcium 7.1 L (8.4-10.2) mg/dL Adrenal panel 06/25/18 Range/Units 04:42 Sodium 132 L (137-145) mmol/L Potassium 4.5 D (3.6-5.0) mmol/L Chloride 102.2 (98-107) mmol/L Carbon Dioxide 18 L (22-30) mmol/L BUN < 1 L (7-17) mg/dL Creatinine < 0.2 L (0.7-1.2) mg/dL Glucose 83 (65-100) mg/dL Calcium 7.1 L (8.4-10.2) mg/dL - Imaging Additional studies: AXR today reveal improvement in her ileus pattern. Assessment and Plan - Patient Problems (1) Sacral decubitus ulcer, stage III Current Visit: No Status: Acute (2) Ileus Current Visit: Yes Status: Acute Plan to address problem: 1) Continue slow advancement of diet 2) Continue daily AXR 3) Monitor BMP's to avoid hypokalemia
--- NOTE | 2018-06-25 10:41 | Gastroenterology Progress Note ---
Assessment and Plan - Patient Problems (1) C. difficile colitis Current Visit: Yes Status: Acute Plan to address problem: Progress is uncertain. Asymptomatic but stools are watery. (2) Ileus Current Visit: Yes Status: Acute Plan to address problem: Stable clinically and tolerating clear liquids. Hypokalemia has been corrected. (3) Sepsis Current Visit: Yes Status: Acute Qualifiers: Sepsis type: sepsis due to unspecified organism Qualified Code(s): A41.9 - Sepsis, unspecified organism (4) Encephalopathy Current Visit: No Status: Acute (5) Sacral decubitus ulcer, stage III Current Visit: No Status: Acute (6) Polymyositis Current Visit: No Status: Chronic Subjective Date of service: 06/25/18 Principal diagnosis: C.difficile colitis, ileus Interval history: The patient denies n/v. Liquid stool in bag from rectal tube. Objective - Exam Narrative Exam: Alert, soft spoken and probably confused - Constitutional Vitals: Temp Pulse Resp BP Pulse Ox 99.7 F H 97 H 20 106/61 100 06/25/18 07:31 06/25/18 07:31 06/25/18 07:31 06/25/18 07:31 06/25/18 07:36 General appearance: no acute distress - EENT ENT: hearing intact - Neck Neck: supple, normal ROM - Respiratory Respiratory effort: normal Respiratory: bilateral: CTA - Cardiovascular Rhythm: regular - Extremities Extremities: pulses intact, No edema, normal color, Full ROM - Gastrointestinal General gastrointestinal: Present: soft, non-tender, distended (mild distention and tympany. ), normal bowel sounds. Absent: mass - Integumentary Integumentary: Present: clear, warm, dry - Neurologic Neurological: strength equal bilaterally - Labs CBC & Chem 7: 06/24/18 05:08 06/25/18 04:42 Labs: Laboratory Results - last 24 hr 06/25/18 04:42 Sodium 132 L Potassium 4.5 D Chloride 102.2 Carbon Dioxide 18 L Anion Gap 16 BUN < 1 L Creatinine < 0.2 L Estimated GFR > 60 BUN/Creatinine Ratio 5 Glucose 83 Calcium 7.1 L
--- NOTE | 2018-06-25 13:58 | Progress Note ---
Assessment and Plan Assessment and plan: Patient is a 68 yo woman with a past medical history of pulmonary CVA, and early dementia, presents with fever, dysuria, and anorexia -Sepsis secondary to UTI, has complted antibiotics, urine cx reviewed, E coli, R to quinolones -C. diff colitis /severe sepsis with rectal tube in place, ID input appreciated , oral vanco and IV flagyl -Ileus, NPO, daily KUB, stable, GI and Gen Sx input appreciated, advance diet as tolerated -Severe hypokalemia, Magnesium level within normal limits, continue to monitor -Polymyositis, outpatient rx, continue pain meds -Dementia with sundowning, implement safety measures -Malnutrition, moderate to severe: nutrition consult, add nutritional supplements -Sacral decub, poa: cont wound care -DVT prophylaxis: sq lovenox Disposition: continue inpatient care, SNF placement pending Mid line was placed due to poor access History Interval history: Patient was seen and examined. Follow-up on current diagnosis. Overnight uneventful. Patient denies any chest pain, shortness breath, nausea/vomiting or severe headaches. Imaging, nursing note, chart, labs and old chart reviewed. Discussed with patient. Hospitalist Physical - Physical exam Narrative exam: GEN: thin, cachetic, chronically debilitated, bmi 17.5, NAD, Awake, Alert, Orientated x 2 HEENT: NCAT, EOMI, PERRL, OP Clear NECK: supple, no adenopathy, no thyromegaly, no JVD CVS/HEART: RRR, normal S1S2, pulses present bilaterally CHEST/LUNGS: CTA B, Symmetrical chest expansion, good air entry bilaterally GI/Abdomen: soft, NTND, good bowel sounds, no guarding or rebound /Bladder: no suprapubic tenderness, no CVA or paraspinal tenderness EXT/Skin: sacral decub, 5.0X2.0X3.0 MSK: FROM x 4 Neuro: CN 2-12 grossly intact, no new focal deficits Psych: calm - Constitutional Vitals: Temp Pulse Resp BP Pulse Ox 99.7 F H 97 H 20 106/61 100 06/25/18 07:31 06/25/18 07:31 06/25/18 07:31 06/25/18 07:31 06/25/18 07:36 Results - Labs CBC & Chem 7: 06/24/18 05:08 06/25/18 04:42 Labs: Laboratory Last Values WBC 13.3 K/mm3 (4.5-11.0) H 06/24/18 05:08 RBC 4.01 M/mm3 (3.65-5.03) 06/24/18 05:08 Hgb 10.7 gm/dl (10.1-14.3) 06/24/18 05:08 Hct 33.5 % (30.3-42.9) 06/24/18 05:08 MCV 79 fl (79-97) 06/24/18 05:08 MCH 27 pg (28-32) L 06/24/18 05:08 MCHC 34 % (30-34) 06/24/18 05:08 RDW 17.5 % (13.2-15.2) H 06/24/18 05:08 Plt Count 364 K/mm3 (140-440) 06/24/18 05:08 Lymph % (Auto) 20.8 % (13.4-35.0) 06/24/18 05:08 [place] % (Auto) 5.0 % (0.0-7.3) 06/24/18 05:08 Eos % (Auto) 0.2 % (0.0-4.3) 06/24/18 05:08 Baso % (Auto) 0.2 % (0.0-1.8) 06/24/18 05:08 Lymph # 2.8 K/mm3 (1.2-5.4) 06/24/18 05:08 [place] # 0.7 K/mm3 (0.0-0.8) 06/24/18 05:08 Eos # 0.0 K/mm3 (0.0-0.4) 06/24/18 05:08 Baso # 0.0 K/mm3 (0.0-0.1) 06/24/18 05:08 Seg Neutrophils % 73.8 % (40.0-70.0) H 06/24/18 05:08 Seg Neutrophils # 9.8 K/mm3 (1.8-7.7) H 06/24/18 05:08 PT 16.4 Sec. (12.2-14.9) H 06/17/18 16:03 INR 1.25 (0.87-1.13) H 06/17/18 16:03 VBG pH 7.333 (7.320-7.420) 06/17/18 16:03 Sodium 132 mmol/L (137-145) L 06/25/18 04:42 Potassium 4.5 mmol/L (3.6-5.0) D 06/25/18 04:42 Chloride 102.2 mmol/L (98-107) 06/25/18 04:42 Carbon Dioxide 18 mmol/L (22-30) L 06/25/18 04:42 Anion Gap 16 mmol/L 06/25/18 04:42 BUN < 1 mg/dL (7-17) L 06/25/18 04:42 Creatinine < 0.2 mg/dL (0.7-1.2) L 06/25/18 04:42 Estimated GFR > 60 ml/min 06/25/18 04:42 BUN/Creatinine Ratio 5 % 06/25/18 04:42 Glucose 83 mg/dL (65-100) 06/25/18 04:42 POC Glucose 87 (70-105) 06/19/18 10:43 Lactic Acid 1.60 mmol/L (0.7-2.0) 06/21/18 13:32 Calcium 7.1 mg/dL (8.4-10.2) L 06/25/18 04:42 Magnesium 1.80 mg/dL (1.7-2.3) 06/18/18 06:01 Total Bilirubin 0.20 mg/dL (0.1-1.2) 06/24/18 05:08 AST 20 units/L (5-40) 06/24/18 05:08 ALT 14 units/L (7-56) 06/24/18 05:08 Alkaline Phosphatase 75 units/L (35-129) 06/24/18 05:08 Total Protein 4.4 g/dL (6.3-8.2) L 06/24/18 05:08 Albumin 1.8 g/dL (3.9-5) L 06/24/18 05:08 Albumin/Globulin Ratio 0.7 % 06/24/18 05:08 Urine Color Katharine (Yellow) 06/17/18 18:38 Urine Turbidity Turbid (Clear) 06/17/18 18:38 Urine pH 5.0 (5.0-7.0) 06/17/18 18:38 Ur Specific [place] 1.020 (1.003-1.030) 06/17/18 18:38 Urine Protein 100 mg/dl mg/dL (Negative) 06/17/18 18:38 Urine Glucose (UA) Neg mg/dL (Negative) 06/17/18 18:38 Urine Ketones Tr mg/dL (Negative) 06/17/18 18:38 Urine Blood Sm (Negative) 06/17/18 18:38 Urine Nitrite Pos (Negative) 06/17/18 18:38 Urine Bilirubin Neg (Negative) 06/17/18 18:38 Urine Urobilinogen 2.0 mg/dL (<2.0) 06/17/18 18:38 Ur Leukocyte Esterase Mod (Negative) 06/17/18 18:38 Urine WBC (Auto) > 182.0 /HPF (0.0-6.0) H 06/17/18 18:38 Urine RBC (Auto) 28.0 /HPF (0.0-6.0) 06/17/18 18:38 Urine Bacteria (Auto) 4+ /HPF (Negative) 06/17/18 18:38 Urine Mucus 3+ /HPF 06/17/18 18:38 Urine Yeast (Budding) 3+ /HPF 06/17/18 18:38 C. difficile Toxin A&B Positive (Negative) A 06/19/18 19:00
[2018-06-25] MEDS: PERCOCET 5/325 PO PRN ×2 (15:21→22:41)
[2018-06-26] MEDS: PERCOCET 5/325 PO PRN ×2 (05:17→11:17)
[2018-06-26 05:53] LABS: Hemoglobin 12.2 gm/dl (10.1-14.3); Mean Corpuscular HGB Conc 32 % (30-34); Mean Corpuscular Hemoglobin 26 pg (28-32); Mean Corpuscular Volume 81 fl (79-97); Red Blood Count 4.67 M/mm3 (3.65-5.03); Red Cell Distribution Width 18.1 % (13.2-15.2)
[2018-06-26 05:54] LABS: Platelet Count 232 K/mm3 (140-440)
[2018-06-26] MEDS: SENOKOT PO SCH ×2 (06:02→09:43)
[2018-06-26 07:31] LABS: Blood Urea Nitrogen TNR mg/dL (7-17)
[2018-06-26 07:32] LABS: BUN/Creatinine Ratio TNR; Calcium TNR mg/dL (8.4-10.2); Hemolysis Index TNR
--- NOTE | 2018-06-26 07:59 | XRay Report ---
AP ABDOMEN: HISTORY: Ileus. Mild gaseous distention of bowel loops throughout the abdomen have waxed and waned over multiple previous exams. Mild improvement in small bowel dilatation is demonstrated since yesterday's exam. The overall pattern is relatively unchanged. IMPRESSION: Mild improvement.
--- NOTE | 2018-06-26 08:30 | Progress Note ---
Assessment and Plan Cultures: Urine cultures growing E.coli, R to Cipro and Levofloxacin Imaging : 06-20-18 - KUB - There is moderate gas throughout the GI tract which could represent an ileus. No obvious mass or large free air or pathologic calcifications 06-24-18 - KUB - mild gaseous distention of small bowel loops. There is relatively normal gas in the colon. Trace air is identified in the rectum. No change 06-25-18 - KUB - Mild improvement in gaseous distention of bowel loops A/P: 68/F with polymyositis, recent CVA, anxiety, dementia admitted with: #1 C. difficile diarrhea, severe with ileus: Continue PO Vancomycin 250 mg qid, discontinue IV flagyl. Continue close monitoring, serial abdominal exams, KUB - Improvement today. Clinically stable, tolerating diet thus far. #2 UTI: UA showed high WBCs on admission, urine culture has grown Escherichia coli that is resistant to fluoroquinolones. Stop IV aztreonam today, minimize exposure to other antimicrobials. No clinical evidence of pyelonephritis or bacteremia. #3 Sepsis resolved likely secondary to above: UTI and C.difficile diarrhea. #4 Penicillin allergy: Patient has listed anaphylaxis as allergy to penicillin. Hence will avoid beta-lactam's since patient is not a reliable historian at this time. Recs: continue oral vancomycin 250 mg 4 times a day discontinue IV Flagyl Continue close monitoring, serial abdominal exams, KUB mildly improved today Continue contact isolation [facility] M: [phone] O:[phone]. Subjective Date of service: 06/26/18 Principal diagnosis: C.difficile colitis Interval history: Patient was seen and examined. More alert today, denied abdominal pain. Observed drinking ensure, tolerated well. Current Antimicrobials: Vancomycin Flagyl Previous Antimicrobials: aztreonam Objective - Exam Narrative Exam: Constitutional: Alert, cooperative, talkative Head, Ears, Nose: Normocephalic, atraumatic. External ears, nose normal Eyes: Conjunctivae/corneas clear. No icterus. No ptosis. Neck: Supple, no meningeal signs Oral: no ulcers, no thrush, mucosa appears dry. Cardiovascular: S1, S2 normal. Respiratory: Good air entry, clear to auscultation bilaterally GI: mildly distended hypoactive bowel sounds, rectal tube in place, continued loose stools Musculoskeletal: No pedal edema, no cyanosis. Skin: No rash or abscess. Sacral decubitus ulcer +, 5 cm without drainage. Hem/Lymphatic: No palpable cervical or supraclavicular nodes. No lymphangitis Psych: Mood ok. Affect good Neurological:Awake, alert, oriented to place and self. - Constitutional Vitals: Vital Signs Temp Pulse Resp BP Pulse Ox 99.3 F 89 20 122/77 100 06/25/18 20:14 06/25/18 20:14 06/25/18 20:14 06/25/18 20:14 06/25/18 20:14 Temperature -Last 24 Hours Temperature 99.3 F Temperature 98.8 F - Labs CBC & Chem 7: 06/26/18 05:37 06/26/18 09:41 Labs: Abnormal lab results 06/26/18 Range/Units 05:37 WBC 11.6 H (4.5-11.0) K/mm3 MCH 26 L (28-32) pg RDW 18.1 H (13.2-15.2) %
[2018-06-26 09:03] VITALS: BP 109/67
[2018-06-26] MEDS: LOVENOX SUB-Q SCH (09:41)
[2018-06-26] MEDS: POTASSIUM CHLORIDE FEEDTUBE SCH (09:42)
[2018-06-26] MEDS: SODIUM CHLORIDE FLUSH SYRINGE 10 ML IV SCH (09:43)
--- NOTE | 2018-06-26 09:49 | Progress Note ---
Assessment and Plan - Patient Problems (1) Sacral decubitus ulcer, stage III Current Visit: No Status: Acute (2) Ileus Current Visit: Yes Status: Acute Plan to address problem: 1) Recommend advancement to full liquid diet. Subjective Date of service: 06/26/18 Patient Reports: Positive: no new complaints, tolerating liquids well Objective Vital Signs - 12hr 06/26/18 07:56 Temperature 98.4 F Pulse Rate 82 Respiratory 18 Rate Blood Pressure 109/67 O2 Sat by Pulse 100 Oximetry - Abdomen [id number] 4, [id number]_[id number] 6, [id number]_[id number] 8 Hernia: none - Labs 06/26/18 05:37 06/26/18 05:37 Diabetes panel 06/26/18 Range/Units 05:37 Sodium TNR Potassium TNR Chloride TNR Carbon Dioxide TNR BUN TNR Creatinine TNR Glucose TNR Calcium TNR Calcium panel 06/26/18 Range/Units 05:37 Calcium TNR Pituitary panel 06/26/18 Range/Units 05:37 Sodium TNR Potassium TNR Chloride TNR Carbon Dioxide TNR BUN TNR Creatinine TNR Glucose TNR Calcium TNR Adrenal panel 06/26/18 Range/Units 05:37 Sodium TNR Potassium TNR Chloride TNR Carbon Dioxide TNR BUN TNR Creatinine TNR Glucose TNR Calcium TNR
[2018-06-26 10:27] LABS: Calcium 7.1 mg/dL (8.4-10.2); Hemolysis Index 50
[2018-06-26 10:28] LABS: BUN/Creatinine Ratio 5; Blood Urea Nitrogen < 1 mg/dL (7-17)
[2018-06-26] MEDS: VANCOMYCIN PO PO SCH (11:17)
--- NOTE | 2018-06-26 13:46 | Progress Note ---
Assessment and Plan Assessment and plan: Patient is a 68 yo woman with a past medical history of pulmonary CVA, and early dementia, presents with fever, dysuria, and anorexia -Sepsis secondary to UTI, has complted antibiotics, urine cx reviewed, E coli, R to quinolones -C. diff colitis /severe sepsis with rectal tube in place, ID input appreciated , oral vanco and IV flagyl -Ileus, resolved, advance diet per Surgeon -Severe hypokalemia, Magnesium level within normal limits, continue to monitor -Polymyositis, outpatient rx, continue pain meds -Dementia with sundowning, implement safety measures -Malnutrition, moderate to severe: nutrition consult, add nutritional supplements -Sacral decub, poa: cont wound care -DVT prophylaxis: sq lovenox Disposition: continue inpatient care, SNF placement pending d/w daughter dominique Faustin at bedside, and [place] over the phone Mid line was placed due to poor access History Interval history: Patient was seen and examined. Follow-up on current diagnosis. Overnight uneventful. Patient denies any chest pain, shortness breath, nausea/vomiting or severe headaches. Imaging, nursing note, chart, labs and old chart reviewed. Discussed with patient. Hospitalist Physical - Physical exam Narrative exam: GEN: thin, cachetic, chronically debilitated, bmi 17.5, NAD, Awake, Alert, Orientated x 2 HEENT: NCAT, EOMI, PERRL, OP Clear NECK: supple, no adenopathy, no thyromegaly, no JVD CVS/HEART: RRR, normal S1S2, pulses present bilaterally CHEST/LUNGS: CTA B, Symmetrical chest expansion, good air entry bilaterally GI/Abdomen: soft, NTND, good bowel sounds, no guarding or rebound /Bladder: no suprapubic tenderness, no CVA or paraspinal tenderness EXT/Skin: sacral decub, 5.0X2.0X3.0 MSK: FROM x 4 Neuro: CN 2-12 grossly intact, no new focal deficits Psych: calm - Constitutional Vitals: Temp Pulse Resp BP Pulse Ox 98.4 F 115 H 18 109/67 100 06/26/18 07:56 06/26/18 10:00 06/26/18 11:17 06/26/18 07:56 06/26/18 10:00 Results - Labs CBC & Chem 7: 06/26/18 05:37 06/26/18 09:41 Labs: Laboratory Last Values WBC 11.6 K/mm3 (4.5-11.0) H 06/26/18 05:37 RBC 4.67 M/mm3 (3.65-5.03) 06/26/18 05:37 Hgb 12.2 gm/dl (10.1-14.3) 06/26/18 05:37 Hct 38.0 % (30.3-42.9) 06/26/18 05:37 MCV 81 fl (79-97) 06/26/18 05:37 MCH 26 pg (28-32) L 06/26/18 05:37 MCHC 32 % (30-34) 06/26/18 05:37 RDW 18.1 % (13.2-15.2) H 06/26/18 05:37 Plt Count 232 K/mm3 (140-440) 06/26/18 05:37 Lymph % (Auto) 20.8 % (13.4-35.0) 06/24/18 05:08 [place] % (Auto) 5.0 % (0.0-7.3) 06/24/18 05:08 Eos % (Auto) 0.2 % (0.0-4.3) 06/24/18 05:08 Baso % (Auto) 0.2 % (0.0-1.8) 06/24/18 05:08 Lymph # 2.8 K/mm3 (1.2-5.4) 06/24/18 05:08 [place] # 0.7 K/mm3 (0.0-0.8) 06/24/18 05:08 Eos # 0.0 K/mm3 (0.0-0.4) 06/24/18 05:08 Baso # 0.0 K/mm3 (0.0-0.1) 06/24/18 05:08 Seg Neutrophils % 73.8 % (40.0-70.0) H 06/24/18 05:08 Seg Neutrophils # 9.8 K/mm3 (1.8-7.7) H 06/24/18 05:08 PT 16.4 Sec. (12.2-14.9) H 06/17/18 16:03 INR 1.25 (0.87-1.13) H 06/17/18 16:03 VBG pH 7.333 (7.320-7.420) 06/17/18 16:03 Sodium 131 mmol/L (137-145) L 06/26/18 09:41 Potassium 3.1 mmol/L (3.6-5.0) L D 06/26/18 09:41 Chloride 100.9 mmol/L (98-107) 06/26/18 09:41 Carbon Dioxide 18 mmol/L (22-30) L 06/26/18 09:41 Anion Gap 15 mmol/L 06/26/18 09:41 BUN < 1 mg/dL (7-17) L 06/26/18 09:41 Creatinine < 0.2 mg/dL (0.7-1.2) L 06/26/18 09:41 Estimated GFR > 60 ml/min 06/26/18 09:41 BUN/Creatinine Ratio 5 % 06/26/18 09:41 Glucose 79 mg/dL (65-100) 06/26/18 09:41 POC Glucose 87 (70-105) 06/19/18 10:43 Lactic Acid 1.60 mmol/L (0.7-2.0) 06/21/18 13:32 Calcium 7.1 mg/dL (8.4-10.2) L 06/26/18 09:41 Magnesium 1.70 mg/dL (1.7-2.3) 06/26/18 09:41 Total Bilirubin 0.20 mg/dL (0.1-1.2) 06/24/18 05:08 AST 20 units/L (5-40) 06/24/18 05:08 ALT 14 units/L (7-56) 06/24/18 05:08 Alkaline Phosphatase 75 units/L (35-129) 06/24/18 05:08 Total Protein 4.4 g/dL (6.3-8.2) L 06/24/18 05:08 Albumin 1.8 g/dL (3.9-5) L 06/24/18 05:08 Albumin/Globulin Ratio 0.7 % 06/24/18 05:08 Urine Color [place] (Yellow) 06/17/18 18:38 Urine Turbidity Turbid (Clear) 06/17/18 18:38 Urine pH 5.0 (5.0-7.0) 06/17/18 18:38 Ur Specific [place] 1.020 (1.003-1.030) 06/17/18 18:38 Urine Protein 100 mg/dl mg/dL (Negative) 06/17/18 18:38 Urine Glucose (UA) Neg mg/dL (Negative) 06/17/18 18:38 Urine Ketones Tr mg/dL (Negative) 06/17/18 18:38 Urine Blood Sm (Negative) 06/17/18 18:38 Urine Nitrite Pos (Negative) 06/17/18 18:38 Urine Bilirubin Neg (Negative) 06/17/18 18:38 Urine Urobilinogen 2.0 mg/dL (<2.0) 06/17/18 18:38 Ur Leukocyte Esterase Mod (Negative) 06/17/18 18:38 Urine WBC (Auto) > 182.0 /HPF (0.0-6.0) H 06/17/18 18:38 Urine RBC (Auto) 28.0 /HPF (0.0-6.0) 06/17/18 18:38 Urine Bacteria (Auto) 4+ /HPF (Negative) 06/17/18 18:38 Urine Mucus 3+ /HPF 06/17/18 18:38 Urine Yeast (Budding) 3+ /HPF 06/17/18 18:38 C. difficile Toxin A&B Positive (Negative) A 06/19/18 19:00
--- NOTE | 2018-06-26 13:47 | Discharge Summary ---
Providers - Providers Date of Admission: 06/17/18 22:20 Date of discharge: 06/26/18 Attending physician: HEATHER ALVAREZ 06/18/18 09:30 Consult to Wound/ET Nurse [CONS] Routine Reason For Exam: wound eval 06/18/18 14:11 Consult to Physician [CONS] Routine Comment: Consulting Provider: MAZIN BOGGS Physician Instructions: evaluation of sacral pressure ulcer Reason For Exam: sacral pressure ulcer 06/19/18 17:15 Consult to Physician [CONS] Routine Comment: Consulting Provider: GREGORY JOHNSON Physician Instructions: Reason For Exam: C diff? UTI 06/19/18 18:52 Consult to Dietitian/Nutrition [CONS] Routine Physician Instructions: Reason For Exam: Reason for Consult: Malnutrition 06/22/18 12:25 Consult to Physician [CONS] Routine Comment: Consulting Provider: PAULA DEJESUS Physician Instructions: Reason For Exam: bowel obstruction, c diff 06/22/18 13:31 Consult to Physician [CONS] Routine Comment: Consulting Provider: MAZIN BOGGS Physician Instructions: Reason For Exam: bowel obstruction, c diff 06/24/18 09:28 Midline [Consult to PICC Line RN] [CONS] Routine Reason For Exam: iv meds and blood draws Type Line:: Midline 06/25/18 10:30 Physical Therapy Evaluation and Treat [CONS] Urgent Comment: Reason For Exam: General Weakness 06/25/18 10:31 Occupational Therapy Evaluate and Treat [CONS] Urgent Comment: Reason For Exam: General Weakness Primary care physician: [employer] Hospitalization Condition: Stable Hospital course: Patient is a 68 yo woman with a past medical history of polymyositis, recent CVA , anxiety, RLS and early dementia who presents with fever, dysuria, and anorexia and found to have the following -Sepsis secondary to UTI, has complted antibiotics, urine cx reviewed, E coli, R to quinolones -C. diff colitis /severe sepsis with rectal tube in place, ID input appreciated , oral vanco -Ileus, resolved, advance diet per Surgeon -Severe hypokalemia, Magnesium level within normal limits, continue to monitor -Polymyositis, outpatient rx, continue pain meds -Dementia with sundowning, implement safety measures -Malnutrition, moderate to severe: nutrition consult, add nutritional supplements -Sacral decub, poa: cont wound care -DVT prophylaxis: sq lovenox Disposition: continue inpatient care, SNF placement pending Mid line was placed due to poor access Disposition: [id number]/[place]-[id number] SNF [facility] Time spent for discharge: 35 minutes Core Measure Documentation - Palliative Care Palliative Care/ Comfort Measures: Not Applicable - Core Measures Any of the following diagnoses?: none - VTE Discharge Requirements Deep Vein Thrombosis/Pulmonary Embolism Present on Admission: No Has pt received <5 days of overlap therapy or INR<2.0: No Anticoagulant overlap therapy prescribed at discharge: No Contraindication No Overlap Therapy order at DC: Not Indicated Exam - Physical Exam Narrative exam: GEN: thin, cachetic, chronically debilitated, bmi 17.5, NAD, Awake, Alert, Orientated x 1 HEENT: NCAT, EOMI, PERRL, OP Clear NECK: supple, no adenopathy, no thyromegaly, no JVD CVS/HEART: RRR, normal S1S2, pulses present bilaterally CHEST/LUNGS: CTA B, Symmetrical chest expansion, good air entry bilaterally GI/Abdomen: soft, NTND, good bowel sounds, no guarding or rebound /Bladder: no suprapubic tenderness, no CVA or paraspinal tenderness EXT/Skin: sacral decub, [id number] MSK: contracted bilateral legs Neuro: CN 2-12 grossly intact, no new focal deficits Psych: calm - Constitutional Vitals: Temp Pulse Resp BP Pulse Ox 98.4 F 115 H 18 109/67 100 06/26/18 07:56 06/26/18 10:00 06/26/18 11:17 06/26/18 07:56 06/26/18 10:00 Plan Activity: up only with assistance, fall precautions, other (no strenous activity unless PCP clears) Diet: advance as tolerated Follow up with: PRIMARY CARE, [Primary Care Provider] - 3-5 Days PAULA DEJESUS MD [Staff Physician] - 7 Days GREGORY JOHNSON MD [Staff Physician] - 7 Days MAZIN BOGGS MD [Staff Physician] - 7 Days Prescriptions: ALPRAZolam [Xanax TAB] 0.5 mg PO Q8H PRN #14 tablet PRN Reason: Anxiety oxyCODONE /ACETAMINOPHEN [Percocet 5/325 mg] 1 tab PO Q6H PRN #15 tablet PRN Reason: Pain , Severe (7-10) Vancomycin Po 250 mg PO Q6HR 14 Days #30 oral.liqd
--- NOTE | 2018-06-26 14:30 | Gastroenterology Progress Note ---
<CARMITAPROMISEALCON Bullock - Last Filed: 06/26/18 14:34> Assessment and Plan 1.C.difficile colitis -afebrile -WBC 11.6-trending down -rectal tube with liquid non-bloody stool -continue John and nikos (ID following) 2.ileus -KUB this am showed mild improvement -etiology-likely multifactorial -clinically, patient is stable with no abd pain or N/V. Tolerating clear liquids. -no plans for sigmoidoscopy -advance diet to full liquids -limit narcotics -continue supportive care -will follow Subjective Date of service: 06/26/18 Principal diagnosis: C.difficile colitis Interval history: No acute events overnight. Reports feeling better. No abd pain or N/V. Rectal tube remains with liquid non-bloody stool. Objective - Constitutional Vitals: Temp Pulse Resp BP Pulse Ox 98.4 F 115 H 18 109/67 100 06/26/18 07:56 06/26/18 10:00 06/26/18 11:17 06/26/18 07:56 06/26/18 10:00 General appearance: no acute distress - Respiratory Respiratory: bilateral: CTA (anterior) - Cardiovascular Rhythm: other (tachycardia) - Gastrointestinal General gastrointestinal: Present: soft, distended (slightly), normal bowel sounds Rectal Exam: other (+rectal tube with liquid non-bloody stool) - Labs CBC & Chem 7: 06/26/18 05:37 06/26/18 09:41 Labs: Laboratory Results - last 24 hr 06/26/18 06/26/18 06/26/18 05:37 05:37 09:41 WBC 11.6 H RBC 4.67 Hgb 12.2 Hct 38.0 MCV 81 MCH 26 L MCHC 32 RDW 18.1 H Plt Count 232 Sodium TNR 131 L Potassium TNR 3.1 L D Chloride TNR 100.9 Carbon Dioxide TNR 18 L Anion Gap TNR 15 BUN TNR < 1 L Creatinine TNR < 0.2 L Estimated GFR TNR > 60 BUN/Creatinine Ratio TNR 5 Glucose TNR 79 Calcium TNR 7.1 L Magnesium TNR 1.70 <PILAR ESPOSITO - Last Filed: 06/28/18 07:47> Assessment and Plan - Patient Problems (1) C. difficile colitis Status: Acute (2) Ileus Status: Acute Plan to address problem: Slowly improving ileus. Started on full liquids. (3) Sepsis Status: Acute Qualifiers: Sepsis type: sepsis due to unspecified organism Qualified Code(s): A41.9 - Sepsis, unspecified organism (4) Encephalopathy Status: Acute (5) Sacral decubitus ulcer, stage III Status: Acute (6) Polymyositis Status: Chronic Objective - Constitutional Vitals: Temp Pulse Resp BP Pulse Ox 98.4 F 115 H 18 109/67 100 06/26/18 07:56 06/26/18 10:00 06/26/18 11:17 06/26/18 07:56 06/26/18 15:00 - Labs CBC & Chem 7: 06/26/18 05:37 06/26/18 09:41
== END 2018-06-26 16:49 | disposition home health service (06) | DRG 871 ==
LOC: ED 14:51 → 4A 22:20 → 2B-ACE 06-21 10:58
PROVIDERS: ADMIT Internal Medicine; ATTEND Internal Medicine
PROC: 0XH933Z Insertion of Infusion Device into Left Upper Arm, Percutaneous Approach (ICD-10-PCS; principal; 2018-06-24)
DX: A41.9 Sepsis, unspecified organism (principal); L89.153 Pressure ulcer of sacral region, stage 3; E43 Unspecified severe protein-calorie malnutrition; G93.41 Metabolic encephalopathy; K56.7 Ileus, unspecified; N30.00 Acute cystitis without hematuria; M33.20 Polymyositis, organ involvement unspecified; F05 Delirium due to known physiological condition; Z68.1 Body mass index [BMI] 19.9 or less, adult; A04.72 Enterocolitis due to Clostridium difficile, not specified as recurrent; F03.91 Unspecified dementia, unspecified severity, with behavioral disturbance; R64 Cachexia; M19.90 Unspecified osteoarthritis, unspecified site; M48.02 Spinal stenosis, cervical region; F41.9 Anxiety disorder, unspecified; E86.0 Dehydration; E87.6 Hypokalemia; B96.20 Unspecified Escherichia coli [E. coli] as the cause of diseases classified elsewhere; Z16.23 Resistance to quinolones and fluoroquinolones; R65.20 Severe sepsis without septic shock; Z88.0 Allergy status to penicillin; Z88.5 Allergy status to narcotic agent; Z88.2 Allergy status to sulfonamides; Z90.710 Acquired absence of both cervix and uterus; Z79.899 Other long term (current) drug therapy; Z88.8 Allergy status to other drugs, medicaments and biological substances; Z86.73 Personal history of transient ischemic attack (TIA), and cerebral infarction without residual deficits
CPT/HCPCS: 36415; 71045; 74018; 80048; 80053; 81001; 82140; 82805; 82962; 83735; 85025; 85027; 85610; 87040; 87076; 87086; 87186; 87324; 93005; 93010; 94760; 96374; 96375; 99291; G8978-GP; G8979-GP; G8980-GP; J1170; J1630; J1650; J1956; J2060; J2270; J2543; J3010; J3370; J3480; J7030; J7040